=== PATIENT | female | born 1940 | race Caucasian/White ===

== ENCOUNTER → 2018-02-05 10:41 | Outpatient (CLI) | payer MEDICARE, BC, SELFPAY ==
--- NOTE | 2018-02-05 10:45 | MM_ITS ---
MM Dig screening mamm BI w/CAD CAD Screening COMPARISON: Digital mammograms with CAD 01/24/2017 and 01/24/2016 INDICATION: There is no personal or family history of breast cancer TECHNIQUE: Standard CC and MLO images were obtained. R2 CAD reviewed. FINDINGS: The breasts are closed primarily of fat with minimal scattered fiber glandular densities in each breast. There is a stable tiny nodular density upper outer quadrant right breast and there is a mole marker left breast. There is no suspicious lesion and there are no suspicious microcalcifications. Couple benign-appearing calcifications in each breast. IMPRESSION: Fatty type breast parenchyma with no suspicious lesion seen BI-RADS Category: 2 Benign Finding(s) RECOMMENDED FOLLOW-UP: 1YR - 1 YEAR FOLLOW-UP (A letter has been sent to the patient regarding results of the study.)
== END ==
PROVIDERS: PCP Family Medicine; Visit Provider Family Medicine
DX: Z12.31 Encounter for screening mammogram for malignant neoplasm of breast (principal)
CPT/HCPCS: 77067

== ENCOUNTER → 2019-02-12 08:45 | Outpatient (CLI) | payer MEDICARE, BC, SELFPAY ==
--- NOTE | 2019-02-12 08:49 | MM_ITS ---
PROCEDURE: MM DIG SCREENING MAMM BI W/CAD CLINICAL INDICATION: SCREENING No personal or family history of breast cancer COMPARISON: [facility] DIG MAMM-SCREEN HORTENCIA from 01/24/2016 [facility] DIG MAMM-SCREEN HORTENCIA W/CAD from 01/24/2017 [facility] MM Dig screening mamm BI w/CAD from 02/05/2018 TECHNIQUE: Standard CC and MLO images were obtained. R2 CAD reviewed. FINDINGS: Scattered fibroglandular densities are seen throughout both breast and the findings of bilateral and symmetrical. Again noted is a stable asymmetric density upper outer quadrant right breast likely an intramammary node. There are couple of benign-appearing microcalcifications right breast. There is a mole marker left breast there is no new or suspicious lesion in either breast and no suspicious microcalcifications. IMPRESSION: Fibrofatty parenchyma with no suspicious lesions seen BI-RAD Category: 2 Benign Finding(s) FOLLOW-UP: 1YR 1 Year Follow-up (A letter has been sent to the patient regarding results of the study.) Dictated by: Dr. Anand Aguayo MD 02/16/2019 12:[address] Anand Aguayo MD in [place] 02/16/2019 12:27
== END ==
PROVIDERS: PCP Family Medicine; Visit Provider Family Medicine
DX: Z12.31 Encounter for screening mammogram for malignant neoplasm of breast (principal)
CPT/HCPCS: 77067

== ENCOUNTER → 2019-07-30 12:49 | Outpatient (CLI) | payer MEDICARE, BC, SELFPAY ==
--- NOTE | 2019-07-30 12:54 | XR_ITS ---
PROCEDURE: XR DEXA AXIAL SKELETON CLINICAL HISTORY: POST MENOPAUSAL COMPARISON: CR BONE3 BONE DENSITOMETRY(HIP:LT SPINE from 12/19/2015 FINDINGS: The right hip BMD is 0.651 with a T-score of -2.4. The left hip BMD is 0.605 with a T-score of -2.8. The lumbar spine BMD is 0.893 with a T-score of -1.4. Previously the lowest density was in the left femur with a T-score of -2.6. IMPRESSION: This patient is considered osteoporotic according to the World Health Organization criteria. Fracture risk is high. Treatment is advised. Based on these results a follow-up exam is recommended in 1 year. Dictated by: Merrick Kruse MD 11/25/2019 08:50 Merrick Kruse MD in [facility] 11/25/2019 08:50
== END ==
PROVIDERS: PCP Family Medicine; Visit Provider Family Medicine
DX: Z78.0 Asymptomatic menopausal state (principal)
CPT/HCPCS: 77080

== ENCOUNTER 2019-11-22 11:38 | Emergency (ER) | payer MEDICARE, BC, SELFPAY ==
[2019-11-22 12:35] VITALS: BP 184/67; PULSE 69; RESP 14; TEMP 36.6; O2SAT 92; BMI 32.9
[2019-11-22 12:36] VITALS: BP 175/83; PULSE 83; RESP 17; TEMP 36.7; O2SAT 98; BMI 32.9
--- NOTE | 2019-11-22 12:39 | CT_ITS ---
PROCEDURE: CT FACIAL BONES WO CON CLINICAL HISTORY: FALL Posttraumatic pain COMPARISON: No exams were available for comparison TECHNIQUE: Axial images obtained with sagittal and coronal reformats. All CT scans at the facility use one or more dose reduction, viz: automated exposure control, ma/kV adjustment per patient size (including targeted exams where dose is matched to indication, i.e. head), or iterative reconstruction technique. FINDINGS: There is left frontal scalp soft tissue swelling along with periorbital soft tissue swelling on the left. Soft tissue swelling is present in the supra and infraorbital region as well. No acute fracture or dislocation is evident. No sinus air-fluid level. No postseptal soft tissue swelling or collections. There is mild leftward nasal septal deviation. There is an impacted maxillary 2 along the anterior aspect of the maxillary ridge on the left. This may represent impacted canine or bicuspid. IMPRESSION: 1. No acute fracture. 2. Left frontal scalp and left-sided periorbital hematoma. Unremarkable appearing left orbit. 3. Impacted left anterior maxillary tooth possibly canine or bicuspid Dictated by: Merrick Kruse MD 11/22/2019 14:11 Merrick Kruse MD in [facility] 11/22/2019 14:11
--- NOTE | 2019-11-22 12:39 | XR_ITS ---
PROCEDURE: XR CHEST AP CLINICAL HISTORY: FALL Posttraumatic pain COMPARISON: No exams were available for comparison FINDINGS: The cardiomediastinal silhouette and pulmonary vascularity are within normal limits. Linear density is present in the left lung base consistent with atelectasis . There are no previous exams available for comparison. The remaining lungs are clear. There may be an old left humeral neck fracture. No acute bony abnormalities. IMPRESSION: Lower lobe atelectatic changes Dictated by: Merrick Kruse MD 11/22/2019 14:31 Merrick Kruse MD in [facility] 11/22/2019 14:31
--- NOTE | 2019-11-22 12:39 | XR_ITS ---
PROCEDURE: XR WRIST RT MIN 3V CLINICAL INDICATION: FALL Posttraumatic pain COMPARISON: CR XR HAND RT 2V from 11/22/2019 FINDINGS: On the oblique view there is a vague lucency along the lower aspect of the triquetrum possibly due to nondisplaced fracture. Please correlate as the patient's area of pain and tenderness. No other significant anomalies are evident. Mild osteoarthritic changes are present at the 1st metacarpophalangeal joint. Other findings:None. IMPRESSION: Questionable non nondisplaced fracture along the lower aspect of the triquetrum otherwise negative Dictated by: Merrick Kruse MD 11/22/2019 14:36 Merrick Kruse MD in [facility] 11/22/2019 14:36
--- NOTE | 2019-11-22 12:39 | XR_ITS ---
PROCEDURE: XR PELVIS 1-2V CLINICAL INDICATION: FALL Posttraumatic pain COMPARISON: No exams were available for comparison TECHNIQUE: XR Pelvis AP View FINDINGS: No fracture or dislocation is evident. No significant degenerative change. No lytic or blastic change. IMPRESSION: No acute findings. Dictated by: Merrick Kruse MD 11/22/2019 14:33 Merrick Kruse MD in [facility] 11/22/2019 14:33
--- NOTE | 2019-11-22 12:39 | CT_ITS ---
PROCEDURE: CT CERVICAL SPINE WO CON CLINICAL INDICATION: FALL Neck injury with pain, contusion/abrasion or hematoma, cervical sprain/strain the COMPARISON: No exams were available for comparison TECHNIQUE: Axial images obtained with sagittal and coronal reformats. All CT scans at the facility use one or more dose reduction, viz: automated exposure control, ma/kV adjustment per patient size (including targeted exams where dose is matched to indication, i.e. head), or iterative reconstruction technique. Axial spiral CT scanning performed of the cervical spine beginning at the base of the skull and continuing to the upper T-spine. 3-D multiplanar reconstruction with 3-D manipulation of volumetric data set in image rendering was completed by the radiologist and/or technologist with the supervision of the radiologist on independent workstation. FINDINGS: No fracture or dislocation. There is mild periarticular calcification at the C1 CT junction at the atlantoaxial region. C2-C3: Mild right-sided foraminal narrowing from facet hypertrophic change. C3-C4: There is 3 mm anterolisthesis of C3 with mild degenerative disc disease at that level. C4-C5: 2-3 mm anterolisthesis of C4 with mild degenerative disc disease and mild left-sided foraminal narrowing. C5-C6: Degenerative disc disease with endplate spurring with canal stenosis of 9 mm with bilateral lateral recess narrowing and left-sided foraminal narrowing. C6-C7: Mild degenerative disc disease with small left paracentral disc osteophyte complex. There is 3 mm anterolisthesis of and on T2. Lung apices are clear. There is a 1.8 cm hypodense nodule of the left lobe of the thyroid gland IMPRESSION: 1. No acute fracture. 2. Multi cervical spondylosis as detailed above with canal stenosis and foraminal narrowing. Please see above for detailed description at each level. 3. 1.8 cm left thyroid nodule which may be better evaluated with nonemergent ultrasound. Dictated by: Merrick Kruse MD 11/22/2019 14:06 Merrick Kruse MD in [facility] 11/22/2019 14:06
--- NOTE | 2019-11-22 12:39 | CT_ITS ---
PROCEDURE: CT HEAD/BRAIN WO CON CLINICAL INDICATION: FALL Head injury with headache/pain, contusion, abrasion or hematoma COMPARISON: No exams were available for comparison TECHNIQUE: Axial images obtained. All CT scans at the facility use one or more dose reduction, viz: automated exposure control, ma/kV adjustment per patient size (including targeted exams where dose is matched to indication, i.e. head), or iterative reconstruction technique. FINDINGS: No midline shift, mass effect, intracranial hemorrhage, hydrocephalus, or extra-axial fluid collection is evident. There is soft tissue swelling in the left frontal region of the scalp. There are involutional changes of age. The calvarium has an unremarkable appearance. No mastoid effusion. No sinus air-fluid level. IMPRESSION: 1. No acute intracranial findings. 2. Left frontal scalp hematoma. Dictated by: Merrick Kruse MD 11/22/2019 14:02 Merrick Kruse MD in [facility] 11/22/2019 14:02
--- NOTE | 2019-11-22 12:51 | HMH.EDFALL ---
ED Disposition Clinical Impression: Closed head injury Qualifiers: Encounter type: initial encounter Qualified Code(s): S09.90XA - Unspecified injury of head, initial encounter Facial trauma Qualifiers: Encounter type: initial encounter Qualified Code(s): S09.93XA - Unspecified injury of face, initial encounter Fracture of triquetral bone of right wrist Qualifiers: Encounter type: initial encounter Fracture type: closed Fracture alignment: nondisplaced Qualified Code(s): S62.114A - Nondisplaced fracture of triquetrum [cuneiform] bone, right wrist, initial encounter for closed fracture Disposition: Home, Self-Care Condition on Discharge: Good Instructions: DI for Wrist Sprain Referrals: Nathan Benavidez MD [Primary Care Provider] - Palu Sheridan MD [Staff Physician] - - Critical Care Critical Care Time: No Attestation: On 11/22/19, the high probability of a clinically significant, sudden or life threatening deterioration of the following system(s) required my full and direct attention, intervention and personal management. The time I documented below is in addition to time spent performing reported procedures but includes the following listed in this critical care notation. Medical Decision Making - Medical Records Medical records reviewed: Yes: I reviewed the patient's medical records. - Manuel Inquiry Pt receiving controlled substance: No Vital Signs: 11/22/19 12:35 11/22/19 12:36 Temperature 97.9 F 98.1 F Temperature Source Oral Oral Pulse Rate [Right Brachial] 69 Pulse Rate [Right] 83 Respiratory Rate 14 17 Blood Pressure [Right Arm] 184/67 H 175/83 H Blood Pressure Mean [Right Arm] 106 113 Blood Pressure Source [Right Arm] Automatic Cuff Blood Pressure Position [Right Arm] Sitting 02 Sat by Pulse Oximetry 92 L 98 Oxygen Delivery Method Room Air Orders (Tests/Meds): ED MEDICATIONS Discontinued Medications Generic Name Dose Route Start Last Admin Trade Name Freq PRN Reason Stop Dose Admin Acetaminophen 1,000 mg 11/22/19 12:44 11/22/19 12:52 Acetaminophen 500mg Tab PO 11/22/19 12:45 1,000 mg ONCE ONE Administration ORDERS Category Date Time Status Hand XR right 2 views [XR hand RT 2V] Stat Exams 11/22/19 12:44 Taken Wrist XR right minimum 3 views [XR wrist RT min 3V] Exams 11/22/19 12:39 Taken Stat XR pelvis 1-2V Stat Exams 11/22/19 12:39 Taken - Radiology Data #1 Image(s): Other (CT c spine) IMPRESSION: 1. No acute fracture. 2. Multi cervical spondylosis as detailed above with canal stenosis and foraminal narrowing. Please see above for detailed description at each level. 3. 1.8 cm left thyroid nodule which may be better evaluated with nonemergent ultrasound. #2 Image(s): Other (CT face) Image Reviewed: Yes I reviewed the patient's radiology results, Yes I have reviewed radiologist's interpretation IMPRESSION: 1. No acute fracture. 2. Left frontal scalp and left-sided periorbital hematoma. Unremarkable appearing left orbit. 3. Impacted left anterior maxillary tooth possibly canine or bicuspid #3 Image(s): Wrist, Hand, Pelvis Image Reviewed: Yes I reviewed the patient's radiology results, Yes I reviewed the patient's radiology image, Yes I have reviewed radiologist's interpretation IMPRESSION: Questionable non nondisplaced fracture along the lower aspect of the triquetrum otherwise negative - CT Data CT Scan: Head Time Received: 14:[address] Reviewed: Yes: I have reviewed the patient's CT results, I have viewed the radiologist's interpretation Findings Narrative: IMPRESSION: 1. No acute intracranial findings. 2. Left frontal scalp hematoma. - Reevaluation(s) Time: 14:36 Reevaluation #1: On reevaluation, patient is feeling much better. There is no evidence of acute intracranial abnormality. Significant hematomas in the face but no fractures. Patient was given a cammie
--- NOTE | 2019-11-22 13:38 | PC.NURSE ---
Pt with rad v/s delayed.
--- NOTE | 2019-11-22 13:54 | PC.NURSE ---
Pt returned from rad.
[2019-11-22 15:02] VITALS: BP 147/87; PULSE 82; RESP 18; TEMP 36.7; O2SAT 99
== END 2019-11-22 15:03 | disposition home or self-care (01) ==
LOC: UTC 11:43 → ER 12:34
PROVIDERS: Emergency Provider Emergency Medicine; PCP Family Medicine
DX: S62.114A Nondisplaced fracture of triquetrum [cuneiform] bone, right wrist, initial encounter for closed fracture (principal); S09.90XA Unspecified injury of head, initial encounter; S09.93XA Unspecified injury of face, initial encounter; W10.9XXA Fall (on) (from) unspecified stairs and steps, initial encounter; Y92.019 Unspecified place in single-family (private) house as the place of occurrence of the external cause; K21.9 Gastro-esophageal reflux disease without esophagitis; I10 Essential (primary) hypertension; E78.5 Hyperlipidemia, unspecified; E03.9 Hypothyroidism, unspecified; Z87.891 Personal history of nicotine dependence; Z79.899 Other long term (current) drug therapy
CPT/HCPCS: 29125; 70450; 70486; 71045; 72125; 72170; 73110; 73120; 99284

== ENCOUNTER → 2019-12-27 13:53 | Outpatient (CLI) | payer MEDICARE, BC, SELFPAY ==
--- NOTE | 2019-12-27 13:58 | XR_ITS ---
PROCEDURE: XR WRIST RT MIN 3V CLINICAL INDICATION: wrist injury FU COMPARISON: CR XR WRIST RT MIN 3V from 11/22/2019 FINDINGS: There remains an oblique lucency at the base and dorsal aspect of the triquetrum suggesting a nondisplaced fracture. Lucency is also noted at the navicular on the oblique view and may be due to artifact from a ridge within the navicular. Please correlate with patient's area of pain and tenderness. IMPRESSION: Overall no significant change possible triquetrum fracture Dictated by: Merrick Kruse MD 12/27/2019 14:45 Merrick Kruse MD in [place] 12/27/2019 14:45
== END ==
PROVIDERS: PCP Family Medicine; Visit Provider Orthopaedic Surgery
DX: S62.111A Displaced fracture of triquetrum [cuneiform] bone, right wrist, initial encounter for closed fracture (principal)
CPT/HCPCS: 73110

== ENCOUNTER → 2020-02-21 13:13 | Outpatient (CLI) | payer MEDICARE, BC, SELFPAY ==
--- NOTE | 2020-02-21 13:15 | MM_ITS ---
PROCEDURE: MM DIG SCREENING MAMM BI W/CAD Referring Doctor: Nathan Benavidez Patient Age:79Y CLINICAL INDICATION: SCREENING 79-year-old no hormones no new complaints Family history noncontributory COMPARISON: [facility] DIG MAMM-SCREEN HORTENCIA from 09/06/2013 MG [facility] DIG MAMM-SCREEN HORTENCIA from 09/14/2014 [facility] DIG MAMM-SCREEN HORTENCIA from 01/24/2016 MG [facility] DIG MAMM-SCREEN HORTENCIA W/CAD from 01/24/2017 [facility] MM Dig screening mamm BI w/CAD from 02/05/2018 MG MM DIG SCREENING MAMM BI W/CAD from 02/12/2019 TECHNIQUE: Standard CC and MLO images were obtained. R2 CAD reviewed. Bilateral digital breast tomosynthesis included. Additional right CC view nipple profile FINDINGS: minimal residual fibroglandular elements. Low-density breast with generalized fatty replacement, No new dominant or suspicious mass. No suspicious calcifications Right breast-no new findings of concern Stable small intramammary node toward axillary tail right breast Left breast-no new areas of significant concern. Longstanding stable small areas are fibroglandular asymmetry Bilateral follow-up 1 year IMPRESSION: Stable bilateral mammogram with no new areas of significant concern Bilateral follow-up 1 year again recommended BI-RAD Category: 2 Benign Finding(s) FOLLOW-UP: 1YR 1 Year Follow-up (A letter has been sent to the patient regarding results of the study.) This Dictated by: Héctor Muñoz MD 02/22/2020 23:13 Héctor Muñoz MD in [place] 02/22/2020 23:13
== END ==
PROVIDERS: PCP Family Medicine; Visit Provider Family Medicine
DX: Z12.31 Encounter for screening mammogram for malignant neoplasm of breast (principal)
CPT/HCPCS: 77063; 77067

== ENCOUNTER → 2020-03-20 11:24 | Outpatient (CLI) | payer MEDICARE, BC, SELFPAY ==
[2020-03-20 13:14] LABS: Coronavirus 19 IgG Antibody Negative (Negative); Coronavirus 19 IgM Antibody Negative (Negative)
== END ==
PROVIDERS: Visit Provider Surgery
DX: Z01.812 Encounter for preprocedural laboratory examination (principal); Z20.822 Contact with and (suspected) exposure to COVID-19; Z13.810 Encounter for screening for upper gastrointestinal disorder; R13.10 Dysphagia, unspecified
CPT/HCPCS: 86328

== ENCOUNTER 2020-03-21 07:50 | Day surgery (SDC) | payer MEDICARE, BC, SELFPAY ==
[2020-03-16 11:09] VITALS: BMI 34.7
[2020-03-21 08:12] VITALS: BP 173/72; PULSE 76; RESP 18; TEMP 36.6; O2SAT 94
[2020-03-21 08:38] VITALS: O2SAT 95
[2020-03-21 08:50] VITALS: BP 125/57; PULSE 72; RESP 12; TEMP 36.2; O2SAT 94
--- NOTE | 2020-03-21 08:52 | HMH.SCOPE ---
- Procedure: Date: 03/21/20 Patient Date of :: 1940 Procedure Performed:: Esophagogastroduodenoscopy with biopsies Indications:: Patient is a 79-year-old female whom I had seen in the past for colonoscopy. She is somewhat of a poor historian. I did perform colonoscopy on her in September 2017 and she had no adenomatous polyps. Recommend 5-year follow-up due to previous history of adenomatous polyps. At this time she is apparently referred for upper endoscopy. She states that she has had very severe symptoms consistent with heartburn. She does take Pepcid [id number]. This is helped with some abdominal bloating but she still does have significant heartburn symptoms. She describes associated abdominal swelling and bloating with excessive gas. Patient has her gallbladder. Performing Provider:: Edwin Mcgill MD Referring Provider:: Lemuel Benavidez MD Sedation:: MAC sedation Procedure:: Patient was taken to endoscopy procedure room. She was positioned in a lateral decubitus position. Adequate intravenous sedation was achieved. Olympus endoscope was inserted via the oropharynx. Is advanced through the esophagus. Gastroesophageal junction was encountered at approximately 35 cm from the incisors. There were findings in the distal esophagus possibly consistent with Garnica's esophagus. Stomach was cannulated and insufflated. Retroflexion revealed a small to moderate hiatal hernia. In the antrum there were several tiny ulcerations, larger than erosions. There were approximately 4 antral small ulcers. These had stable well-formed exudate. Gastric antral mucosal biopsies obtained for CLOtest for H. pylori. Pylorus was traversed. Duodenum appeared unremarkable. Gastric biopsies were obtained adjacent to the ulcers. Endoscope was withdrawn into the distal esophagus. Several biopsies were obtained to assess for possible Garnica's esophagitis. Stomach was desufflated and the endoscope was withdrawn. Findings:: Small to moderate sliding hiatal hernia Possible Garnica's esophagus in the distal esophagus Four tiny antral ulcerations Recommendations:: Follow-up on histopathology. Treat H. pylori if positive. Likely benefit from proton pump inhibitors and possibly Cytotec. Consider repeat endoscopy in several weeks to assess for healing pending the patient's symptomatology. Complications:: None Estimated blood obtained (mL): 2
--- NOTE | 2020-03-21 08:53 | HMH.ANESCL ---
[facility] Anesthesia Checklist - Patient Identification Patient Identification: Arm Band - Structural Data Admitted From: Home Planned Operative Procedure/s: egd Consent for Planned Operative Procedure(s) Verified: Yes Verified Documents: Surgical Consent - Chart Verification Results Verified: None - Additional verifications Anesthesia Reactions: No - Anesthesia Plan Anesthesia Risk discussed: Yes Anesthesia Plan: Verified ASA Class: II Anesthesia Type: General [facility] History I have reviewed the patient's past medical history: Yes Medical History: Reports:: Gastroesophageal Reflux Disease(GERD), Hyperlipidemia, Hypertension Denies:: Cancer, Diabetes Mellitus Type 1, Diabetes Mellitus Type 2, Internal Pacemaker, Lung Disease, MRSA, Seizures *Have you ever received a pneumonia vaccine?: Yes *Have you received a flu vaccine this season?: Yes Other Medical History: Reports: Hypothyroidism, Other Comment:: none Anesthesia experience/problems:: none Other Surgeries: Yes: Colonoscopy, Hysterectomy-Total. No: Pacemaker Amputation: No Fractures: No - *Social History Last grade of school completed: 11th or 12th Smoking Status: Former smoker Alcohol Intake: never Substance Use Type: denies use *Occupational Status:: unemployed, retired Housing: house Household Members: spouse *Travel in the last 8 weeks: None Family Hx:: Diabetes, Hypertension
[2020-03-21 09:00] VITALS: BP 113/68; PULSE 69; RESP 16; O2SAT 94
[2020-03-21 09:10] VITALS: BP 124/65; PULSE 64; RESP 16; O2SAT 93
[2020-03-21 09:20] VITALS: BP 118/73; PULSE 73; RESP 16; TEMP 36.2; O2SAT 94
== END 2020-03-21 09:24 | disposition home or self-care (01) ==
LOC: OUTP 07:54
PROVIDERS: PCP Family Medicine; Visit Provider Surgery
PROC: 0DJ08ZZ Inspection of Upper Intestinal Tract, Via Natural or Artificial Opening Endoscopic (ICD-10-PCS; CPT 43235; principal; 2020-03-21 09:00)
DX: K44.9 Diaphragmatic hernia without obstruction or gangrene (principal); K25.9 Gastric ulcer, unspecified as acute or chronic, without hemorrhage or perforation; I10 Essential (primary) hypertension; E78.5 Hyperlipidemia, unspecified; E03.9 Hypothyroidism, unspecified; Z79.899 Other long term (current) drug therapy; Z87.891 Personal history of nicotine dependence
CPT/HCPCS: 43235; 87339; 88305

== ENCOUNTER → 2020-08-01 08:59 | Outpatient (CLI) | payer MEDICARE, BC, SELFPAY ==
--- NOTE | 2020-08-01 09:02 | XR_ITS ---
PROCEDURE: XR DEXA AXIAL SKELETON CLINICAL HISTORY: OSTEOPOROSIS COMPARISON: CR BONE3 BONE DENSITOMETRY(HIP:LT SPINE from 12/19/2015 FINDINGS: The right hip BMD is 0.506 with a T-score of -3.1. The left hip BMD is 0.576 with a T-score of -3.0. The lumbar spine BMD is 1.007 with a T-score of -0.4. IMPRESSION: This patient is considered osteoporotic according to the World Health Organization criteria. Fracture risk is high. Treatment is advised. Based on these results a follow-up exam is recommended in 1 year. Dictated by: Thien Kenny MD 08/04/2020 09:55 Thien Kenny MD in [place] 08/04/2020 09:55
== END ==
PROVIDERS: PCP Family Medicine; Visit Provider Family Medicine
DX: M81.0 Age-related osteoporosis without current pathological fracture (principal)
CPT/HCPCS: 77080

== ENCOUNTER → 2020-09-19 11:25 | Outpatient (CLI) | payer MEDICARE, BC, SELFPAY ==
--- NOTE | 2020-09-19 12:02 | XR_ITS ---
PROCEDURE: XR KNEE LT 3V CLINICAL INDICATION: KNEE PAIN COMPARISON: No exams were available for comparison FINDINGS: There are mild tricompartmental osteoarthritic changes. No acute fracture or dislocation. No lytic or blastic change Other findings:None. IMPRESSION: Mild osteoarthritis Dictated by: Merrick Kruse MD 09/19/2020 13:06 Merrick Kruse MD in [place] 09/19/2020 13:06
== END ==
PROVIDERS: PCP Family Medicine; Visit Provider Family Medicine
DX: M25.562 Pain in left knee (principal)
CPT/HCPCS: 73562

== ENCOUNTER → 2020-10-09 11:11 | Outpatient (CLI) | payer MEDICARE, BC, SELFPAY | PROVIDERS: Visit Provider Surgery | DX: Z20.822 Contact with and (suspected) exposure to COVID-19 (principal); Z01.812 Encounter for preprocedural laboratory examination; Z13.810 Encounter for screening for upper gastrointestinal disorder | CPT/HCPCS: U0003 ==

== ENCOUNTER 2020-10-11 06:55 | Day surgery (SDC) | payer MEDICARE, BC, SELFPAY ==
[2020-10-06 10:09] VITALS: BMI 36.6
[2020-10-11 07:14] VITALS: BP 178/78; PULSE 90; RESP 18; TEMP 36.6; O2SAT 95
--- NOTE | 2020-10-11 07:49 | HMH.ANESCL ---
[facility] Anesthesia Checklist - Patient Identification Patient Identification: Arm Band, Verbal (Name & ) - Structural Data Admitted From: Home Planned Operative Procedure/s: egd Consent for Planned Operative Procedure(s) Verified: Yes Verified Documents: History and Physical - NPO Status Verified Time NPO: 00:00 - Chart Verification Results Verified: CBC, BMP - Additional verifications Patient : No Anesthesia Reactions: No Hx Blood Transfusions: No Blood Transfusion Reaction: No Cephalosporin Allergy: No Previous Colonoscopy: Yes - Cardiovascular Assessment Heart Sounds: S1 & S2 Pulse Strength: Baseline Pulse Rhythm: Regular Peripheral Edema: No - Airway Assessment C-Spine Mobility Assessed: Yes TMJ Mobility Assessed: Yes Dentition: Dentures-good fit - Neurological Assessment Level of Consciousness: Awake, Alert, Appropriate Hx Seizures: No Numbness or tingling in extremities: No - Anesthesia Plan Anesthesia Risk discussed: Yes Anesthesia Plan: Verified ASA Class: II Anesthesia Type: MAC [facility] History I have reviewed the patient's past medical history: Yes Medical History: Reports:: Gastroesophageal Reflux Disease(GERD), Hyperlipidemia, Hypertension Denies:: Cancer, Diabetes Mellitus Type 1, Diabetes Mellitus Type 2, Internal Pacemaker, Lung Disease, MRSA, Seizures *Have you ever received a pneumonia vaccine?: Yes *Have you received a flu vaccine this season?: Yes Other Medical History: Reports: Hypothyroidism, Other Anesthesia experience/problems:: none Laterality Cases: Bilateral: Cataract Other Surgeries: Yes: Colonoscopy, EGD, Hysterectomy-Total. No: Pacemaker Amputation: No Fractures: No - *Social History Last grade of school completed: High school graduate Smoking Status: Never smoker Alcohol Intake: never Substance Use Type: denies use *Occupational Status:: retired Housing: house Household Members: spouse *Travel in the last 8 weeks: None Family Hx:: Diabetes
[2020-10-11 07:50] VITALS: O2SAT 96
--- NOTE | 2020-10-11 08:04 | HMH.SCOPE ---
- Procedure: Date: 10/11/20 Patient Date of :: 1940 Procedure Performed:: Esophagogastroduodenoscopy with biopsies Indications:: Patient presents for follow up upper endoscopy. Her primary care provider is Lemuel Benavidez MD. She had significant symptoms of reflux. 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 At that time the patient stated that she normally takes about 800 mg ibuprofen daily. I had started her on lansoprazole. She has had dramatic improvement and resolution in her symptoms. I recommended refrain from NSAIDs if possible. 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 She states the medicine is doing quite well. She does however say that occasionally she has hunger pains and burning about an hour after eating. Performing Provider:: Edwin Mcgill MD Referring Provider:: Lemuel Benavidez MD Sedation:: MAC sedation Procedure:: Patient was positioned in lateral decubitus position. Adequate intravenous sedation was achieved with anesthesia titration of propofol. Olympus endoscope was inserted via the oropharynx. Esophagus was cannulated. Overall esophagus appeared normal. The distal esophagus there was possible findings consistent with Garnica's esophagus. Stomach was cannulated and insufflated. Retroflexion revealed small to moderate sliding hiatal hernia. There was some mild to moderate nonerosive antral gastritis. Biopsies were obtained. Pylorus was traversed. Duodenum appeared normal. Endoscope was withdrawn to the distal esophagus and several biopsies were obtained at the gastroesophageal junction to assess for Garnica's esophagus. Endoscope was withdrawn. Findings:: Small to moderate hiatal hernia Recommendations:: Continue proton pump inhibitors. Repeat endoscopy pending findings on biopsy Complications:: None immediately apparent Estimated blood obtained (mL): 2
[2020-10-11 08:06] VITALS: BP 147/71; PULSE 80; RESP 16; TEMP 36.7; O2SAT 94
[2020-10-11 08:16] VITALS: BP 132/71; PULSE 71; RESP 16; O2SAT 95
[2020-10-11 08:26] VITALS: BP 125/58; PULSE 72; RESP 16; O2SAT 95
[2020-10-11 08:36] VITALS: BP 158/71; PULSE 70; RESP 16; O2SAT 95
== END 2020-10-11 08:36 | disposition home or self-care (01) ==
LOC: OUTP 06:57
PROVIDERS: PCP Family Medicine; Visit Provider Surgery
PROC: 0DJ08ZZ Inspection of Upper Intestinal Tract, Via Natural or Artificial Opening Endoscopic (ICD-10-PCS; CPT 43235; principal; 2020-10-11 08:00)
DX: K44.9 Diaphragmatic hernia without obstruction or gangrene (principal); K29.60 Other gastritis without bleeding; Z87.19 Personal history of other diseases of the digestive system; K21.9 Gastro-esophageal reflux disease without esophagitis; E78.5 Hyperlipidemia, unspecified; I10 Essential (primary) hypertension; E03.9 Hypothyroidism, unspecified; Z83.3 Family history of diabetes mellitus; Z79.899 Other long term (current) drug therapy
CPT/HCPCS: 43239; 88305; 88342

== ENCOUNTER → 2020-12-06 10:40 | Outpatient (CLI) | payer MEDICARE, BC, SELFPAY ==
--- NOTE | 2020-12-06 10:42 | US_ITS ---
PROCEDURE INFORMATION: Exam: US Right Breast, Complete Exam date and time: 12/06/2020 10:42 AM Age: 80 years old Clinical indication: Diffuse right breast pain TECHNIQUE: Imaging protocol: Complete ultrasound of all four quadrants of the Right breast and the retroareolar regions, including ultrasound of the axilla when performed. COMPARISON: MG MM DIG SCREENING MAMM BI W/CAD 02/21/2020 1:34 PM FINDINGS: Breast: No suspicious solid or cystic mass is present. No benign-appearing solid or cystic mass is present. No architectural distortion or shadowing is present. No axillary adenopathy is present. IMPRESSION: No sonographic evidence of malignancy. Annual mammographic screening is recommended unless otherwise clinically indicated. If focal symptoms were to develope (palpable lump or focal pain), diagnostic mammogram with spot compression views in the region of palpable concern should be considered ASSESSMENT: BI-RADS category 1: Negative
== END ==
PROVIDERS: PCP Family Medicine; Visit Provider Nurse Practitioner Family
DX: N64.4 Mastodynia (principal)
CPT/HCPCS: 76641

== ENCOUNTER 2020-12-22 11:50 | Outpatient (RCR) | payer MEDICARE, BC, SELFPAY | END 2020-12-22 12:30 | disposition home or self-care (01) | LOC: PT 11:50 | PROVIDERS: Visit Provider Orthopaedic Surgery | DX: M17.12 Unilateral primary osteoarthritis, left knee (principal) | CPT/HCPCS: 97760 ==

== ENCOUNTER → 2021-02-22 10:08 | Outpatient (CLI) | payer MEDICARE, BC, SELFPAY ==
--- NOTE | 2021-02-22 10:11 | MM_ITS ---
PROCEDURE INFORMATION: Exam: MG Bilateral Screening 3D Mammography Exam date and time: 02/22/2021 10:11 AM Age: 80 years old Clinical indication: Encounter for screening mammogram for malignant neoplasm of breast TECHNIQUE: Imaging protocol: Bilateral screening tomosynthesis and 2D mammography including computer-aided detection (CAD) when performed. COMPARISON: 1. MG MM DIG SCREENING MAMM BI W/CAD 02/21/2020 1:34 PM 2. MG MM DIG SCREENING MAMM BI W/CAD 02/12/2019 9:17 AM FINDINGS: MAMMOGRAPHY: Breast composition: The breast tissue is composed of scattered areas of fibroglandular density. Mass: None. Architectural distortion: None. Calcifications: No suspicious calcifications. Asymmetric density: None. Skin thickening: None. Axillary adenopathy: None. IMPRESSION: No mammographic evidence of malignancy. Annual screening is recommended unless otherwise clinically indicated. ASSESSMENT: BI-RADS Category 1: Negative
== END ==
PROVIDERS: PCP Family Medicine; Visit Provider Family Medicine
DX: Z12.31 Encounter for screening mammogram for malignant neoplasm of breast (principal)
CPT/HCPCS: 77063; 77067

== ENCOUNTER → 2021-06-07 11:04 | Outpatient (CLI) | payer MEDICARE, BC, SELFPAY ==
--- NOTE | 2021-06-07 11:10 | XR_ITS ---
FINAL REPORT CLINICAL HISTORY: RIGHT SHOULDER PAIN FINDINGS: RIGHT SHOULDER 3 views were obtained. There is no acute fracture or dislocation. There are mild degenerative changes seen in the acromioclavicular and glenohumeral joints. There is no soft tissue abnormality. IMPRESSION: Degenerative changes with no acute bony abnormality. Reviewed, Interpreted and Dictated by Edwin Rincon III, MD Transcribed by Lisha Huber Authenticated by Edwin Rincon III, MD on 06/07/2021 01:01:05 PM [facility]
--- NOTE | 2021-06-07 11:10 | XR_ITS ---
FINAL REPORT CLINICAL HISTORY: LEFT SHOULDER PAIN FINDINGS: LEFT SHOULDER 3 views were obtained. There is no acute fracture or dislocation. A chronic proximal left humeral fracture is noted. There are mild degenerative changes seen in the acromioclavicular and glenohumeral joints. There is no soft tissue abnormality. IMPRESSION: Degenerative changes with no acute bony abnormality. Reviewed, Interpreted and Dictated by Edwin Rincon III, MD Transcribed by Lisha Huber Authenticated by Edwin Rincon III, MD on 06/07/2021 01:01:[address] [facility]
== END ==
PROVIDERS: PCP Family Medicine; Visit Provider Family Medicine
DX: M25.511 Pain in right shoulder (principal); M25.512 Pain in left shoulder
CPT/HCPCS: 73030

== ENCOUNTER → 2021-06-29 08:41 | Outpatient (CLI) | payer MEDICARE, BC, SELFPAY ==
--- NOTE | 2021-06-29 08:48 | XR_ITS ---
FINAL REPORT CLINICAL HISTORY: knee pain COMPARISON: 09/19/2020 FINDINGS: LEFT KNEE Three views of the left knee reveal no evidence of fracture or dislocation. The bony alignment is normal. There are mild degenerative changes. Meniscal calcifications are identified. There is no evidence of joint effusion. There is no acute soft tissue abnormality. IMPRESSION: Mild degenerative changes as above. Reviewed, Interpreted and Dictated by Edwin Rincon III, MD Transcribed by Charisse Dozier Authenticated by Edwin Rincon III, MD on 06/29/2021 02:51:01 PM [facility]
== END ==
PROVIDERS: PCP Family Medicine; Visit Provider Orthopaedic Surgery
DX: M25.562 Pain in left knee (principal)
CPT/HCPCS: 73562

== ENCOUNTER → 2022-03-01 10:26 | Outpatient (CLI) | payer MEDICARE, BC, SELFPAY ==
--- NOTE | 2022-03-01 10:35 | XR_ITS ---
FINAL REPORT CLINICAL HISTORY: knee pain COMPARISON: 06/29/2021 FINDINGS: Left knee Three views were obtained. There is no acute fracture or dislocation. Mild degenerative changes are present. There is a 10 mm presumed osteo chondroma in the medial proximal tibia. No soft tissue abnormality is identified. 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 Reviewed, Interpreted and Dictated by Edwin Rincon III, MD Transcribed by Lucita King Authenticated and [facility]
--- NOTE | 2022-03-01 10:35 | XR_ITS ---
FINAL REPORT CLINICAL HISTORY: knee pain FINDINGS: Right knee Three views were obtained. There is no acute fracture or dislocation. There are mild degenerative changes. There is a presumed enchondroma in the distal femur measuring 15 mm. No soft tissue abnormality is identified. 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 Reviewed, Interpreted and Dictated by Edwin Rincon III, MD Transcribed by Lucita King Authenticated and [facility]
== END ==
PROVIDERS: PCP Family Medicine; Visit Provider Orthopaedic Surgery
DX: M17.0 Bilateral primary osteoarthritis of knee (principal)
CPT/HCPCS: 73562

== ENCOUNTER → 2022-04-09 11:15 | Outpatient (CLI) | payer MEDICARE, BC, SELFPAY ==
--- NOTE | 2022-04-09 11:18 | MM_ITS ---
PROCEDURE INFORMATION: Exam: MG Bilateral Screening 3D Mammography Exam date and time: 04/09/2022 11:09 AM Age: 81 years old Clinical indication: Screening examination TECHNIQUE: Imaging protocol: Bilateral Screening tomosynthesis and 2D mammography including computer-aided detection (CAD) when performed. COMPARISON: 1. MG MM DIG SCREENING MAMM BI W/CAD 02/22/2021 10:15 AM 2. MG MM DIG SCREENING MAMM BI W/CAD 02/21/2020 1:34 PM FINDINGS: MAMMOGRAPHY: Breast composition: The breasts are almost entirely fatty. Mass: None. Architectural distortion: None. Calcifications: No suspicious calcifications. Asymmetric density: None. Skin thickening: None. Axillary adenopathy: None. IMPRESSION: No mammographic evidence of malignancy. Annual screening is recommended unless otherwise clinically indicated. ASSESSMENT: BI-RADS Category 1: Negative
== END ==
PROVIDERS: PCP Family Medicine; Visit Provider Family Medicine
DX: Z12.31 Encounter for screening mammogram for malignant neoplasm of breast (principal)
CPT/HCPCS: 77063; 77067

== ENCOUNTER 2022-05-14 11:00 | Outpatient (RCR) | payer MEDICARE, BC, SELFPAY ==
--- NOTE | 2022-01-01 14:56 | HMH.PTOPWND ---
Rehab Outpt Wound Evaluation Rehab OP Wound Evaluation Start: 01/01/22 13:50 Freq: Status: Active Protocol: Document 01/01/22 14:43 PHORNE (Rec: 01/01/22 14:56 PHORNE [id number]) E-signed By Noah Fisher, PT Subjective/History History History This is the initial PT eval for Mari Carmichael 81 yowf who presents with c/o B knee pain and B LE edema, L > R. She reports insidious onset of pain ~ 6-8 mos ago and worsening edema over the past 1-2 mos. She reports using a RW over the past 1-2 mos also. She had x-rays performed on the L knee which showed degenerative changes. She also has hx of HTN. Subjective Subjective Currently Pain in L knee is 7/ 10, at worst 10/10. She reports intermittent sharp pains with anxiety about her knee giving out. She has 2/4 TTP in B gaitor area. 3+ pitting edema noted to B lower leg from mid-calf distally. Palpable pedal pulses noted B. 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 Stemmer's sign Stemmer's Sign no Stage of Lymphedema Lymphedema stages Stage I (Pitting edema, reduces w/ elevation, no fibrosis) Skin Changes Dry Skin Yes Taut, Shiny Skin Yes Discoloration of Skin Yes Other Changes Yes Pain Scale Pain Scale (0-10) 7 Affected Extremities Areas Affected by Lymphedema/Edema Right Lower Extremity,Left Lower Extremity Manual Lymphatic Drainage Treatment Area MLD Treatment Area Right Lower Extremity,Left Lower Extremity Wound Problems/Impairments Impairments Problems/Impairmments Palpation Tenderness,Impaired Endurance,Impaired Transfers, Impaired Gait Pattern,Impaired Walking,Impaired Standing, Impaired Stair Climbing, Impaired Incline Stepping, Impaired Stepping on Uneven Surface,Impaired Recreational Activities,Incre
--- NOTE | 2022-02-12 11:10 | HMH.RHREAS ---
Rehab Reassessment Rehab OP Re-assessment Start: 02/12/22 11:04 Freq: Status: Active Protocol: Document 02/12/22 11:06 QUINTENBarbaraMARY (Rec: 02/12/22 11:10 PHORMARY [id number]) E-signed By Noah Fisher, PT Rehab Re-assessment Subjective Subjective Pt reports, I'm sleeping so much better than I was. Pain now 4/10. Objective Objective Notes Edema: B LE with 2+ pitting edema noted this date. Some spongy edema noted as well. TTP: B LE 1/4 in the gaitor area of lower legs. Pain: 4/10. Assessment Progress Assessment Progressing as Expected Assessment Notes Pt has shown significant improvements in all edema at athis time in B LE. Much less pain and tenderness noted resulting in significant functional improvements with mobility. Continuing to improve. Patient goals met ST,2,3,4 Goals Not Met LT,2,3,4,5,6,7,8 Revised Goals none Plan Plan Continue per initial POC. Frequency of Therapy 2 x/wk Duration of therapy 4 wks Time and Billing Re-Eval Time 14 Re-Eval Billing Units 1 PHYSICIAN CERTIFICATION: I certify the specified therapy services for Mari Carmichael are required, authorized, and reviewed every 30 days.
--- NOTE | 2022-03-12 11:53 | HMH.RHREAS ---
Rehab Reassessment Rehab OP Re-assessment Start: 02/12/22 11:04 Freq: Status: Active Protocol: Document 03/12/22 11:48 QUINTENBarbaraMARY (Rec: 03/12/22 11:53 PHOPAM [id number]) E-signed By Noah Fisher, PT Rehab Re-assessment Subjective Subjective Pt reports, I don't have to take any pain medicine anymore , I can control it with just tylenol. Objective Objective Notes TTP: B LE 1/4 in the gaitor area of lower legs. Pain: 10. Circumferential Measurements: R LE total 312.2 cm which is - 7.9 cm since initial eval. L LE total 309.2 cm which is -29 .9 cm since initial eval. Assessment Progress Assessment Progressing as Expected Assessment Notes Pt has shown significant improvements in pain, pitting edema, overall edema, and tenderness to palpation in B LE. She has also significantly improved her mobility, but has continued difficulty raising the L LE for steps and some ADLs. She is following her HEP well and without c/o. Patient goals met ST,2,3,4 Goals Not Met LT,2,3,4,5,6,7,8 Revised Goals none Plan Plan Continue per initial POC. Frequency of Therapy 2 x/wk Duration of therapy 4 wks Time and Billing Re-Eval Time 16 Re-Eval Billing Units 1 PHYSICIAN CERTIFICATION: I certify the specified therapy services for Mari Carmichael are required, authorized, and reviewed every 30 days.
--- NOTE | 2022-04-16 11:57 | HMH.RHREAS ---
Rehab Reassessment Rehab OP Re-assessment Start: 02/12/22 11:04 Freq: Status: Active Protocol: Document 04/16/22 11:47 QUINTENBarbaraMARY (Rec: 04/16/22 11:57 PHORMARY [id number]) E-signed By Noah Fisher, PT Rehab Re-assessment Subjective Subjective Pt continues to reports overall decrease in pain and edema. I feel a whole lot better. Objective Objective Notes TTP: B gaiter area 0/4 this date. Edema: 1+ pitting edema remains to B lower legs, L > R this date. Pain: 2/10 pain in the L knee this date. Assessment Progress Assessment Progressing as Expected Assessment Notes Pt continues to show significant improvement in overall L knee pain and L LE edema. She shows improved gait , without antalgic gait pattern at this time. Tolerating compression garments well at home, becoming more independent with HEP. Patient goals met ST,2,3,4 LT,2,4 Goals Not Met LT,5,6,7 Revised Goals none Plan Plan Continue per initial POC. Beginning to progress to full independence with HEP. Will drop to 1x wk for 3-4 wks for treatment. Frequency of Therapy 1 x/wk Duration of therapy 4 wks Time and Billing Re-Eval Time 14 Re-Eval Billing Units 1 PHYSICIAN CERTIFICATION: I certify the specified therapy services for Mari Carmichael are required, authorized, and reviewed every 30 days.
== END 2022-05-14 11:05 | disposition home or self-care (01) ==
LOC: PT 11:00
PROVIDERS: PCP Family Medicine; Visit Provider Orthopaedic Surgery
DX: M25.562 Pain in left knee (principal); M25.462 Effusion, left knee
CPT/HCPCS: 97110; 97140; 97162; 97164

== ENCOUNTER 2023-01-31 09:27 | Day surgery (SDC) | payer MEDICARE, BC, SELFPAY ==
[2023-01-30 09:33] VITALS: BMI 32.1
[2023-01-31] VITALS (7 sets, daily range): BP systolic 85–185; BP diastolic 33–84; PULSE 84–93; RESP 18; TEMP 36.3–36.6; O2SAT 95–98
--- NOTE | 2023-01-31 09:32 | HMH.SCOPE ---
Procedure: Date: 01/31/23 Patient Date of :: 1940 Procedure Performed:: Esophagogastroduodenoscopy with biopsies Total colonoscopy to terminal ileum with polypectomy using biopsy forceps and colon biopsies Indications:: Patient is a 82-year-old female whom I had seen in the past. Her primary care provider is Lemuel Benavidez MD. She did have a prior history of upper endoscopy performed on 03/21/2020 which revealed small to moderate sliding hiatal hernia, distal esophageal goblet cell metaplasia , tiny benign antral ulcerations. 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 Recommendations were for 1 year follow-up EGD. Patient has had several colonoscopies in the past. She had a colonoscopy in 2008 by [facility] gastroenterology. At that time there was diverticulosis and a 5-year follow-up colonoscopy was recommended. She has a prior history of positive Cologuard. I had performed colonoscopy on her on 10/14/2017 at which time there was noted to be diverticulosis and diminutive polyps. These were all hyperplastic. I recommended 5 to 10-year follow-up colonoscopy. Performing Provider:: Edwin Mcgill MD Referring Provider:: Lemuel Benavidez MD Sedation:: MAC sedation Procedure:: Patient history was obtained and appropriate physical examination was performed. Patient's medications and allergies were reviewed. Informed consent was obtained after explaining the benefits, alternatives, and risks of the procedure including, but not limited to, bleeding, perforation, missed lesions, and adverse reaction to anesthesia medications. Patient was transported to endoscopy procedure room. Patient was connected to monitoring devices. Throughout the procedure the patient's blood pressure, pulse, and oxygen saturations were monitored continuously. Patient identification and planned procedure were verified by the staff. Patient was positioned in lateral decubitus position. Attention was first turned to upper endoscopy. Olympus endoscope was inserted via the oropharynx. Esophagus was cannulated. Endoscope was advanced. Gastroesophageal junction was encountered at approximately 35 cm. Stomach was cannulated and insufflated. Retroflexion revealed tiny sliding hiatal hernia. There was mild diffuse nonerosive gastropathy but there were a couple of focal minimal erosions in the antrum. The pylorus was traversed. Duodenum appeared normal. Biopsies were obtained of the gastric antrum near the area of erosion. These were tiny. Endoscope was withdrawn into the distal esophagus and a couple biopsies were obtained at the gastroesophageal junction to assess for Garnica's esophagus. Endoscope was withdrawn. Next attention was turned to colonoscopy. Digital anorectal exam was performed. Variable stiffness Olympus colonoscope was inserted and advanced under direct visualization to the cecum. Adequacy of the colonic preparation was noted. The colonoscope was advanced a short distance into the terminal ileum. The colonoscope was then slowly withdrawn while carefully examining the color, texture, anatomy, and integrity of the mucosoa circumferentially. Within the rectum retroflexion was performed. Colonoscope was then withdrawn. . There was some retained stool but this could be mostly cleared with irrigation and suctioning. Terminal ileum appeared normal. However in the cecum adjacent to the ileocecal valve there were a couple of moderate ulcerations characterized by clean-based exudative ulcers. This may be secondary to mild ischemic colitis or other etiology such as NSAID induced ulceration. Multiple biopsies were obtained using cold biopsy forceps. Endoscope was withdrawn through the remainder of the colon. She had significant sigmoid diverticulosis with relatively heavy diverticular burden. There were numerous hyperplastic appearing rectos
--- NOTE | 2023-01-31 09:58 | P.PNANES_ITS ---
[facility] Disclaimer: The information contained in this section may have been updated after the patient was seen, as this information can be updated by other users. Medical History Hypertension Surgical History History of colonoscopy History of hysterectomy Family History Other Family history of diabetes mellitus type II Family history of hypothyroidism Social History Smoking Status: Never smoker second hand exposure: No alcohol intake: never substance use type: denies use current occupational status: retired Travel in the last 8 weeks: None household members: spouse housing: house current occupational exposures/hazards: No caffeine: Yes [facility] Anesthesia Checklist Patient Identification Patient Identification: Arm Band and Verbal (Name & ) Structural Data Admitted From: Home Planned Operative Procedure/s: EGD/Colonoscopy Consent for Planned Operative Procedure(s) Verified: Yes NPO Status Verified Time NPO: 00:00 Additional verifications Anesthesia Reactions: No Hx Blood Transfusions: No Blood Transfusion Reaction: No Airway Assessment Mallampati Score:: Class II C-Spine Mobility Assessed: Yes TMJ Mobility Assessed: Yes Dentition: Dentures-good fit Neurological Assessment Level of Consciousness: Awake Hx Seizures: No Numbness or tingling in extremities: No Anesthesia Plan Anesthesia Risk discussed: Yes Anesthesia Plan: Verified ASA Class: III Anesthesia Type: MAC
--- NOTE | 2023-01-31 11:07 | ECG_ITS ---
APPROVED REPORT Exam: Resting ECG HR:85 bpm ECG Measurements Heart Rate 85 AXES QRSd 92 QRS 25 QT 399 T 10 QTc [address] DEPRESSION, CONSIDER SUBENDOCARDIAL INJURY [0.1+ mV ST DEPRESSION] ABNORMAL ECG UNCONFIRMED REPORT Electronically signed by : Dakota Beebe MD 01/31/2023 14:40:54
--- NOTE | 2023-01-31 11:46 | CA_ITS ---
APPROVED REPORT EXAM: Comprehensive 2D, Doppler, and color-flow Echocardiogram [employer] Type Screw Machine Operator: Tess Gavin RT(R) Ht: 5 ft 2 in Wt: 170lbs BSA: 1.78 BP: 173/70 mmHg Indications: new onset AFIB post colonoscopy, HTN, hyperlipidemia, ex smoker. 2D Dimensions Left Atrium 4.98 cm F: 2.7 - 3.8 LVEF (Luna's) 49.20 % F: 54 - 74 LVOT 1.98 cm (M/F) 1.5-2.5 LV Volume 56.70 mL F: 46 - 106 LV Volume Index 31.7 mL/m2 F: 29 - 61 LA Volume 50.10 mL LA Volume Index 27.99 mL/m2 (M/F) 16-34 EF AP4 53.80 % EF AP2 49.8 % EF BP 49.2 % GL Strain -14.6 % M-Mode Dimensions RVDd 2.62 cm (0.9-2.6) LVDd 4.74 cm (3.5-5.7) Ao Diam 3.14 cm (2.0-3.7) LVDs 3.34 cm (3.5-5.7) IVSd 0.61 cm (0.6-1.1) PWd 0.87 cm (0.6-1.1) EF (Teich) 56.50% FS 29.50% EDV (Teich) 104.40 mL ESV (Teich) 45.40 mL Left Ventricle The left ventricle is normal size. The left ventricular systolic function is normal. The left ventricular ejection fraction is within the normal range. There is increased LV wall thickness. There is normal LV segmental wall motion. The left ventricular diastolic function is normal. LVEF is 60%. Right Ventricle The right ventricle is normal size. The right ventricular systolic function is normal. Atria The left atrium is mildly dilated. The right atrium size is normal. There is no Doppler evidence of interatrial shunt. Aortic Valve The aortic valve is mildly thickened. There is no aortic valvular stenosis. Trace aortic regurgitation. Mitral Valve The mitral valve leaflets are mildly thickened. No evidence of mitral valve stenosis. Trace mitral regurgitation. Tricuspid Valve The tricuspid valve leaflets are thin and pliable. Mild tricuspid regurgitation. RVSP is normal. Pulmonic Valve The pulmonary valve is normal in structure. Trace pulmonic regurgitation. Great Vessels The aortic root is normal in size. The ascending aorta is normal in size. IVC is normal in size and collapses >50% with inspiration. Pericardium There is no pericardial effusion. Other Information Study Quality: Fair Conclusion Normal biventricular systolic function. Mild LA dilation. Mild TR. Electronically signed by : Brittny Frankel MD 02/06/2023 00:01:03
[2023-01-31 12:06] LABS: Basophils # 0.1 K/mm3 (0-0.2); Basophils % 0.7 % (0.1-2.0); Eosinophils # 0.3 K/mm3 (0.0-0.4); Eosinophils % 3.3 % (0.1-12.0); Hematocrit 42.6 % (37.0-47.0); Hemoglobin 13.9 g/dL (12.2-16.2); Lymphocytes # 2.4 K/mm3 (0.7-4.5); Mean Corpuscular HGB Conc 32.6 g/dL (31.8-35.4); Mean Corpuscular Volume 98.2 fl (81-99); Monocytes # 0.5 K/mm3 (0.1-1.0); Platelet Count 347 K/mm3 (142-424); Red Blood Count 4.34 M/mm3 (4.20-5.40); Red Cell Distribution Width 14.8 % (11.5-17.5); White Blood Count 10.3 K/mm3 (4.8-10.8)
[2023-01-31 12:09] LABS: Chloride 101 mmol/L (98-107); Sodium 137 mmol/L (136-145)
[2023-01-31 12:10] LABS: Potassium 3.2 mmoL/L (3.5-5.1)
[2023-01-31 12:12] LABS: Alanine Aminotransferase 23 U/L (12-78); Albumin Level 4.1 g/dl (3.5-5.0); Albumin/Globulin Ratio 1.3 (1.1-1.8); Alkaline Phosphatase 81 U/L (38-126); Anion Gap 9.2 mEq/L (5-15); Aspartate Amino Transferase 40 U/L (14-36); Bilirubin,Total 0.5 mg/dl (0.2-1.3); Blood Urea Nitrogen 14 mg/dl (7-17); Carbon Dioxide 30 mmol/L (22.0-30.0); Creatinine Clearance Estimated 54 mL/min (50-200); Estimated Glomerular Filt Rate 80 ml/min (>60); GFR (African American) 97 ML/MIN (>60); Globulin 3.2 g/dL (1.3-3.2); Total Protein,Serum 7.3 g/dl (6.3-8.2)
[2023-01-31 12:13] LABS: Calcium 8.7 mg/dl (8.4-10.2); Glucose 99 mg/dl (74-100)
[2023-01-31 12:25] LABS: Troponin I < 0.01 ng/ml (0.00-0.034)
--- NOTE | 2023-01-31 12:32 | EXP.CARD.CON ---
History of Present Illness History of Present Illness Consult date: 01/31/23 Requesting physician: Edwin Mcgill Consult reason: atrial fibrillation Chief complaint: Post op A. fib, new diagnosis Additional Medical History:: 1. Hypertension 2. Degenerative arthritis of the knees bilaterally 3. Hyperlipidemia 4. Hypothyroidism, on replacement therapy 5. Remote tobacco use discontinued, greater than 30 years ago 6. History of colon polyps A. EGD colonoscopy, 01/31/2023, pertinent for colonic ulceration felt secondary to NSAID use 7. New diagnosed A-fib with controlled ventricular response, 01/31/2023 History of present illness: 82-year-old white female patient of Dr. Benavidez was seen in postop surgery today after having EGD and colonoscopy by Dr. Mcgill. Patient was found to be in atrial fibrillation which is a new diagnosis for her. Rate is controlled due to patient's ongoing therapy with verapamil for hypertension. She denies any chest pain, pressure or tightness. She does relate intermittent palpitations without dizziness or near syncope symptoms. She is on thyroid replacement with recent check earlier this week noted to be normal per patient. No prior history of cardiac issues but does have long-term treatment for hypertension and hyperlipidemia. She did smoke but quit greater than 30 years ago. EKG today shows atrial fibrillation at a rate of [address] segment depression inferior and laterally. Stat troponin today is normal. No old EKG For comparison. [facility] Disclaimer: The information contained in this section may have been updated after the patient was seen, as this information can be updated by other users. Surgical History History of colonoscopy History of hysterectomy Family History Other Family history of diabetes mellitus type II Family history of hypothyroidism Social History (Updated 01/31/23 @ 10:06 by Didi Espinoza RN) Smoking Status: Former smoker second hand exposure: No alcohol intake: never substance use type: denies use current occupational status: retired Travel in the last 8 weeks: None household members: spouse housing: house current occupational exposures/hazards: No caffeine: Yes Review of Systems Review of Systems Review of systems:: pertinent systems reviewed and negative unless documented below *Cardiovascular Cardiovascular: Denies chest pain, Denies dyspnea and Reports rapid heart rate *Respiratory Respiratory: Denies cough and Denies dyspnea Exam Data for Last 24 hours Vital signs and Labs for Last 24 Hours: Temp Pulse Resp BP Pulse Ox O2 Del Method O2 Flow Rate 97.8 F 89 18 108/50 L 98 Room Air 3 01/31/23 11:00 01/31/23 11:30 01/31/23 11:30 01/31/23 11:30 01/31/23 11:30 01/31/23 11:30 01/31/23 11:10 Laboratory Results - last 24 hr 01/31/23 11:57: WBC 10.3, RBC 4.34, Hgb 13.9, Hct 42.6, MCV 98.2, MCH 32.0 H, MCHC 32.6, RDW 14.8, Plt Count 347, MPV 8.0, Neut % (Auto) 68.0, Lymph % (Auto) 23.0, Dillon % (Auto) 5.0, Eos % (Auto) 3.3, Baso % (Auto) 0.7, Neut # (Auto) 7.0, Lymph # (Auto) 2.4, Dillon # (Auto) 0.5, Eos # (Auto) 0.3, Baso # (Auto) 0.1, Sodium 137, Potassium 3.2 L, Chloride 101, Carbon Dioxide 30, Anion Gap 9.2, BUN 14, Creatinine 0.70, Estimated Creat Clear 54, Estimated GFR 80, Est GFR ( Amer) 97, Glucose 99, Calcium 8.7, Total Bilirubin 0.5, AST 40 H, ALT 23, Alkaline Phosphatase 81, Troponin I < 0.01, Total Protein 7.3, Albumin 4.1, Globulin 3.2, Albumin/Globulin Ratio 1.3 I & O for Last 24 hours: Intake & Output 01/29/23 01/30/23 01/31/23 02/01/23 11:59 11:59 11:59 11:59 Weight 170 lb Constitutional Constitutional: no acute distress *Routine Respiratory Exam Respiratory: Present CTA bilaterally *Routine Cardiovascular Exam Cardiovascular: Present irregularly irregular; Absent murmur,
--- NOTE | 2023-01-31 12:32 | SUR.PHASEII ---
Labs, ECHO and Eliquis ordered per MICKEY Bae. Blood work obtained per Lab, initial dose Eliquis given as directed. Pt discharged from postop, taken to ECHO per wheelchair accompanied by family.
[2023-01-31 13:08] LABS: Free Thyroxine Index 4.4 ug/dL (5.93-13.13); T4 (Thyroxine) 11.1 ug/dl (5.53-11.0); Triiodothryronine (T3) Uptake 40 % (23.5-40.5)
[2023-01-31 13:22] LABS: Thyroid Stimulating Hormone 1.98 uIU/mL (0.465-4.68)
== END 2023-01-31 12:15 | disposition home or self-care (01) ==
PROVIDERS: Physician Assistant; PCP Family Medicine; Visit Provider Surgery
PROC: 0DJ08ZZ Inspection of Upper Intestinal Tract, Via Natural or Artificial Opening Endoscopic (ICD-10-PCS; CPT 43235; principal; 2023-01-31 10:30)
DX: I48.0 Paroxysmal atrial fibrillation (principal); E78.2 Mixed hyperlipidemia; Z87.891 Personal history of nicotine dependence; K44.9 Diaphragmatic hernia without obstruction or gangrene; Z12.11 Encounter for screening for malignant neoplasm of colon; K57.30 Diverticulosis of large intestine without perforation or abscess without bleeding; K31.89 Other diseases of stomach and duodenum; K31.A0 Gastric intestinal metaplasia, unspecified; K63.3 Ulcer of intestine; D12.7 Benign neoplasm of rectosigmoid junction
CPT/HCPCS: 43239; 45380; 80053; 84436; 84443; 84479; 84484; 85025; 88305; 93005; 93306

== ENCOUNTER 2023-08-11 13:42 | Outpatient (CLI) | payer MEDICARE, SELFPAY ==
--- NOTE | 2023-08-11 13:59 | MM_ITS ---
PROCEDURE INFORMATION: Exam: MG Bilateral Screening 3D Mammography Exam date and time: 08/11/2023 1:53 PM Age: 82 years old Clinical indication: Screening examination TECHNIQUE: Imaging protocol: Bilateral Screening tomosynthesis and 2D mammography including computer-aided detection (CAD) when performed. COMPARISON: 1. MG MM DIG SCREENING MAMM BI W/CAD 04/09/2022 11:09 AM 2. MG MM DIG SCREENING MAMM BI W/CAD 02/22/2021 10:15 AM FINDINGS: MAMMOGRAPHY: Breast composition: The breasts are almost entirely fatty. Mass: None. Architectural distortion: None. Calcifications: No suspicious calcifications. Asymmetric density: None. Skin thickening: None. Axillary adenopathy: None. IMPRESSION: No mammographic evidence of malignancy. Annual screening is recommended unless otherwise clinically indicated. ASSESSMENT: BI-RADS Category 1: Negative
== END 2023-08-11 23:59 | disposition home or self-care (01) ==
LOC: RAD 13:42
PROVIDERS: PCP Family Medicine; Visit Provider Family Medicine
DX: Z12.31 Encounter for screening mammogram for malignant neoplasm of breast (principal)
CPT/HCPCS: 77063; 77067

== ENCOUNTER 2024-01-16 10:01 | Emergency (ER) | payer MEDICARE, SELFPAY ==
[2024-01-16 10:02] VITALS: BP 166/78; PULSE 105; RESP 16; TEMP 36.7; O2SAT 98; BMI 27.4
[2024-01-16 10:30] VITALS: BP 187/80; PULSE 103; O2SAT 96
[2024-01-16] MEDS: ACETAMINOPHEN 500MG TAB 1000 MG PO (10:55)
[2024-01-16] MEDS: METHOCARBAMOL 500MG TABLET 500 MG PO (10:55)
[2024-01-16] MEDS: NAPROXEN 500MG TABLET 500 MG PO (10:55)
--- NOTE | 2024-01-16 11:32 | HMH.EDGENADL ---
Discharge Plan Disposition Patient Disposition: Home, Self-Care Condition: Good Prescriptions Prescriptions: New oxycodone 5 mg tablet 5 mg PO Q8H PRN (Reason: pain) 3 Days Qty: 9 0RF oxycodone 5 mg tablet 5 mg PO Q8H PRN (Reason: pain) Qty: 9 0RF No Action furosemide 20 mg tablet 20 mg PO Q OTHER DAY levothyroxine 25 mcg tablet 25 mcg PO DAILY dicyclomine 10 mg capsule 10 mg PO BID lisinopril 20 mg tablet 20 mg PO HS atorvastatin 20 mg tablet 20 mg PO HS multivitamin [Daily Multi-Vitamin] tablet 1 tab PO QAM omega-3 fatty acids [Fish Oil Concentrate] 1,000 mg capsule 1,000 mg PO ONCE verapamil 240 mg tablet extended release 240 mg PO DAILY pantoprazole 40 mg tablet,delayed release (DR/EC) 40 mg PO DAILY Qty: 90 3RF lansoprazole 30 mg capsule,delayed release(DR/EC) 30 mg PO DAILY Qty: 30 5RF diclofenac sodium 75 mg tablet,delayed release (DR/EC) See Rx Instructions .ROUTE .COMPLEX Qty: 90 3RF Dose Instruction: TAKE 1 TABLET BY MOUTH 2 TIMES DAILY NEEDED FOR SEVERE KNEE PAIN. Rx Instructions: TAKE 1 TABLET BY MOUTH 2 TIMES DAILY NEEDED FOR SEVERE KNEE PAIN. Eliquis 5 mg tablet See Rx Instructions .ROUTE .COMPLEX Qty: 180 3RF Dose Instruction: TAKE 1 TABLET BY MOUTH 2 TIMES DAILY. Rx Instructions: TAKE 1 TABLET BY MOUTH 2 TIMES DAILY. calcium citrate-vitamin D3 1 EACH tablet 1 each PO BID alendronate 70 MG tablet 70 mg PO WEEKLY Referrals Follow up/Referrals: Nathan Benavidez MD [Primary Care Provider] - See instructions Activity Restrictions/Add. Instructions Additional Instructions/Restrictions: As discussed please follow-up with your primary care provider. Please continue taking your prescribed medications. Should your symptoms worsen please return to ED. Clinical Impressions Clinical Impression: Leg pain, right Instructions Patient Instructions: DI for Knee Pain Print Language Print Language: Pashto Discharge ED Provider: Josh Solano General Adult HPI General Chief complaint: PAIN Stated complaint: Swelling/Pain in legs. Time Seen by Provider: 01/16/24 10:33 Mode of Arrival: Wheelchair Source of Information: Patient Limitations: No Limitations Description of Symptoms (Recalled from ER Triage Doc. by RN): Reports bilateral knee pain for 1 week. States the right knee is worse than the left but that both are hurting. States that Dr. Moreland reported for her to follow up if her pain returned. Patient reports that she took 800mg of Ibuprofen at 4 am with no relief. History of Present Illness HPI narrative: 83yoF patient presents with a chief complaint of worsening pain in her leg, particularly the right hip and leg. She reports that her feet are swollen and she is experiencing pain in the back. The patient denies any injury to the leg and states that the swelling has progressively worsened over the week despite taking a 25 mg fluid pill and applying ice. She also mentions increased frequency of urination last night, which she attributes to taking Miralax. The patient describes the pain as being present everywhere, but mainly in the right hip and leg. She reports that the pain is exacerbated by both walking and sitting down. She is currently taking an arthritis medication starting with the letter D for pain management, but it has not been effective in alleviating her symptoms. Additionally, the patient states that the pain is unbearable and she can't hardly take it. She mentions that the left side also hurts, but not as much as the right side. Please note that above description of symptoms, in this electronic medical record under categorization of recalled from ER triage doctor by RN are reflective of an initial nursing assessment, however, is not reflective of my full history and physical exam that was personally taken and clarified. Consequentially, this preceding description of symptoms, which may include the patient's categorized chief complaint in the EMR, do not reflect my personal clinical impression, and the ultimate description of history of present illness and patient stated complaints should be deferred to this section of the note. Unless stated otherwise or congruent with this section of the note, additional signs, symptoms, or incongruence should be interpreted as inaccurate with my clinical impression. Related Data Home Medications ?Medication ?Instructions ?Recorded ?Confirmed atorvastatin 20 mg tablet 20 mg PO HS Cholesterol 09/22/17 12/04/23 dicyclomine 10 mg capsule 10 mg PO BID abdominal pain 09/22/17 12/04/23 lisinopril 20 mg tablet 20 mg PO HS bp 09/22/17 12/04/23 multivitamin (Daily Multi-Vitamin 1 tab PO QAM Supplement 09/22/17 12/04/23 tablet) omega-3 fatty acids 1,000 mg 1,000 mg PO ONCE Supplement 09/22/17 12/04/23 capsule (Fish Oil Concentrate) calcium 200 mg (as 1 each PO BID Supplement 10/13/17 12/04/23 citrate)-vitamin D3 6.25 mcg (250 unit) tablet furosemide 20 mg tablet 20 mg PO Q OTHER DAY Fluid 12/02/19 12/04/23 alendronate 70 mg tablet 70 mg PO WEEKLY bone density 03/16/20 12/04/23 verapamil 240 mg tablet,extended 240 mg PO DAILY 03/30/21 12/04/23 release levothyroxine 25 mcg tablet 25 mcg PO DAILY 09/21/21 12/04/23 Previous Rx's ?Medication ?Instructions ?Recorded lansoprazole 30 mg capsule,delayed 30 mg PO DAILY BP #30 caps 08/10/21 release pantoprazole 40 mg tablet,delayed 40 mg PO DAILY #90 tabs 10/13/23 release apixaban 5 mg tablet (Eliquis) See Rx Instructions .Route 01/12/24 .COMPLEX #180 tabs diclofenac sodium 75 mg See Rx Instructions .Route 01/12/24 tablet,delayed release .COMPLEX #90 tabs oxycodone 5 mg tablet 5 mg PO Q8H PRN pain #9 tabs 01/16/24 oxycodone 5 mg tablet 5 mg PO Q8H PRN pain 3 days #9 tabs 01/16/24 Allergies Allergy/AdvReac Type Severity Reaction Status Date / Time No Known Allergies Allergy Verified 12/04/23 09:57 [facility] Disclaimer: The information contained in this section may have been updated after the patient was seen, as this information can be updated by other users. Medical History GERD (gastroesophageal reflux disease) Surgical History History of esophagogastroduodenoscopy (EGD) History of hysterectomy History of colonoscopy Family History Other Family history of diabetes mellitus type II Family history of hypothyroidism Social History Smoking Status: Unknown if ever smoked second hand exposure: No alcohol intake: never substance use type: denies use current occupational status: retired household members: spouse housing: house current occupational exposures/hazards: No caffeine: Yes Other Medical History Have you received the Flu Vaccine for this season: Yes Have you received the Pneumonia Vaccine: Yes ROS Obtained: Yes Systems reviewed as appropriate & no additional complaints except as documented Physical Exam General General appearance: alert and in no apparent distress Head Head exam: atraumatic and normocephalic Eye Eye exam: Present normal appearance and EOMI ENT ENT exam: Present normal exam Neck Neck exam: Present normal inspection Chest Chest inspection: Present normal inspection and symmetric chest wall rise; Absent tenderness Respiratory Respiratory exam: Present normal lung sounds bilaterally; Absent respiratory distress or wheezes Cardiovascular Cardiovascular exam: Present regular rate, normal rhythm and normal heart sounds Abdominal Exam Abdominal exam: Present soft and normal bowel sounds; Absent distention, tenderness, guarding or rebound Extremities Exam Extremities exam: Present normal inspection, full ROM and edema (BLE pitting edema); Absent tenderness Back Exam Back exam: Present normal inspection Neurological Exam Neurological exam: Present alert and oriented X3 Psychiatric Psychiatric exam: Present normal affect and normal mood Skin Skin exam: Present warm, dry, intact and normal color; Absent rash Medical Decision Making Medical Records Medical records reviewed: Yes I reviewed the patient's medical records. Screening: Per USPSTF and CDC recommendations, given the prevalence of disease in our region, it is our hospital?s policy to screen for HIV and viral Hepatitis for all patients aged 18 and over and those with ongoing risk factors. Manuel Inquiry Pt receiving controlled substance: Yes Manuel was queried for this patient: No Reason not queried -: Manuel login issues Risks and benefits of using a controlled substance: were not discussed with pt by me Vital Signs: 01/16/24 10:02 01/16/24 10:30 Temperature 98.0 F Temperature Source Oral Pulse Rate 103 H Pulse Rate [Radial] 105 H Respiratory Rate 16 Blood Pressure 187/80 H Blood Pressure [Right Arm] 166/78 H Blood Pressure Mean 105 Blood Pressure Mean [Right Arm] 107 Blood Pressure Source [Right Arm] Automatic Cuff Blood Pressure Position [Right Arm] Sitting 02 Sat by Pulse Oximetry 98 96 Oxygen Delivery Method Room Air Orders (Tests/Meds): ED MEDICATIONS Generic Name Dose Route Start Last Admin Trade Name Freq PRN Reason Stop Dose Admin Oxycodone HCl 5 mg 01/16/24 11:37 01/16/24 11:47 Oxycodone 5mg Immediate Release Tablet PO 02/15/24 11:36 5 mg Q4HP PRN Administration Severe Pain (7-10) Discontinued Medications Generic Name Dose Route Start Last Admin Trade Name Anthony PRN Reason Stop Dose Admin Acetaminophen 1,000 mg 01/16/24 10:51 01/16/24 10:55 Acetaminophen 500mg Tab PO 01/16/24 10:52 1,000 mg ONCE ONE Administration Methocarbamol 500 mg 01/16/24 10:51 01/16/24 10:55 Methocarbamol 500mg Tablet PO 01/16/24 10:52 500 mg BID ONE Administration Naproxen 500 mg 01/16/24 10:52 01/16/24 10:55 Naproxen 500mg Tablet PO 01/16/24 10:53 500 mg BID ONE Administration ORDERS Category Date Time Status HIV (1&2) Antibody Rapid Stat Lab 01/16/24 10:15 Ordered Hep C Ab with Reflex to RNA Stat Lab 01/16/24 10:15 Ordered Medical Decision Narrative: Patient with history and exam per above presenting for evaluation of acute on chronic leg pain Diagnoses considered include acute on chronic pain, arthritis, musculoskeletal pain, injury?patient denied any falls or traumatic injury ED workup and treatment included: As above My clinical impression at this time is most consistent with acute on chronic leg pain. On reassessment patient states she is feeling better following medication. At this time medically clear for discharge with outpatient follow-up. Patient is to follow-up with her primary care provider regarding her lower extremity edema and current Lasix regimen. Patient has no shortness of breath, chest pain, reassuring physical exam as far as chest lungs, abdomen pelvis ago. No noted anasarca. Advised to elevate legs to help with fluid retention. Patient to follow-up with her primary team for her osteoarthritis regarding ongoing pain in this acute on chronic exacerbation. Given instructions to return to ED if symptoms worsen. Patient agreeable with plan. Discharged home with hemodynamically stable vitals. I discussed my clinical impression with patient and answered all questions. At this time, the evidence for any other entities in the differential is insufficient to warrant any further testing or ED observation. This was explained to the patient. The patient was advised that persistent or worsening symptoms require further evaluation. Critical Care Critical Care Time Critical Care Time: No
[2024-01-16] MEDS: OXYCODONE 5MG IMMEDIATE RELEASE TABLET 5 MG PO (11:47)
[2024-01-16 15:16] VITALS: BP 165/80; PULSE 85; RESP 18; TEMP 36.8; O2SAT 97
[2024-01-16 15:29] VITALS: BP 165/80; PULSE 85; RESP 16; TEMP 36.8; O2SAT 95
== END 2024-01-16 15:20 | disposition home or self-care (01) ==
PROVIDERS: Emergency Provider Student in an Organized Health Care Education/Training Program; PCP Family Medicine
DX: M79.605 Pain in left leg (principal); M79.604 Pain in right leg

== ENCOUNTER 2024-01-18 18:56 | Inpatient (IN) | payer MEDICARE, SELFPAY ==
[2024-01-18 18:58] VITALS: BP 138/63; PULSE 74; RESP 18; TEMP 36.7; O2SAT 97; BMI 27.4
--- NOTE | 2024-01-18 19:21 | ECG_ITS ---
APPROVED REPORT Exam: Resting ECG HR:78 bpm ECG Measurements Heart Rate 78 AXES TN 152 P 59 QRSd 87 QRS 4 QT 342 T 42 QTc 376 Conclusion SINUS RHYTHM NORMAL ECG Electronically signed by : KISHAN ELIAS, 01/19/2024 20:23:25
--- NOTE | 2024-01-18 19:23 | XR_ITS ---
PROCEDURE INFORMATION: Exam: XR Chest Exam date and time: 01/18/2024 7:50 PM Age: 83 years old Clinical indication: Shortness of breath; Additional info: SOA TECHNIQUE: Imaging protocol: Radiologic exam of the chest. Views: 1 view. COMPARISON: CR XR CHEST AP 11/22/2019 1:24 PM FINDINGS: Lungs: Streaky opacities at the left lung base may reflect scarring but a small consolidation is not excluded. Pleural spaces: No large effusion or pneumothorax. Heart/Mediastinum: No evidence of mediastinal widening or cardiac silhouette enlargement; the mediastinum and heart appear within normal limits for contour and size. Vasculature: There are calcifications of the aortic arch. Bones/joints: No evidence of acute osseous abnormalities within the visualized portions of the thoracic spine and ribs. Osseous structures appear appropriate for patient age. IMPRESSION: Streaky opacities at the left lung base may reflect scarring but a small consolidation is not excluded.
--- NOTE | 2024-01-18 19:24 | ED_ITS ---
Discharge Plan Disposition Patient Disposition: Admitted Condition: Good Clinical Impressions Clinical Impression: SHAUN (acute kidney injury), Diarrhea, Gallstone Discharge ED Provider: Rola Sanchez General Adult HPI <MICKEY Bassett - Last Filed: 01/18/24 21:13> General Chief complaint: Nausea/Vomiting/Diarrhea Stated complaint: abdominal pain Time Seen by Provider: 01/18/24 19:14 Mode of Arrival: Wheelchair Source of Information: Patient Limitations: No Limitations Description of Symptoms (Recalled from ER Triage Doc. by RN): Patient report nausea, diarrhea and abdomen pain that started yesterday. History of Present Illness HPI narrative: 83-year-old female presents emergency department abdominal pain nausea and diarrhea for the last 2 days, she describes it as dark and watery . But denies any real hematochezia, melena or hematemesis. She denies any fever chills chest pain shortness of breath, denies urinary type symptomatology, denies any vomiting or any other symptoms at this time. Patient has been taking loperamide with little to no relief or diarrheal type symptoms, she denies any recent antibiotic use, patient was recently seen in the emergency department on 01/16/2024, acute on chronic leg pain with lower extremity swelling and edema consistent with her normal dependent edema, has been taking p.o. oxycodone only taken this medication twice, leg pain is improved. Other past medical history consistent with GERD/Garnica's esophagus, she is a former smoker, atrial fibrillation on anticoagulation therapy with Eliquis, chronic lymphedema, hyperlipidemia, osteoarthritis, hypothyroidism, hypertension, triage vitals unremarkable. Onset (ago): day(s) Related Data Home Medications ?Medication ?Instructions ?Recorded ?Confirmed atorvastatin 20 mg tablet 20 mg PO HS Cholesterol 09/22/17 12/04/23 dicyclomine 10 mg capsule 10 mg PO BID abdominal pain 09/22/17 12/04/23 lisinopril 20 mg tablet 20 mg PO HS bp 09/22/17 12/04/23 multivitamin (Daily Multi-Vitamin 1 tab PO QAM Supplement 09/22/17 12/04/23 tablet) omega-3 fatty acids 1,000 mg 1,000 mg PO ONCE Supplement 09/22/17 12/04/23 capsule (Fish Oil Concentrate) calcium 200 mg (as 1 each PO BID Supplement 10/13/17 12/04/23 citrate)-vitamin D3 6.25 mcg (250 unit) tablet furosemide 20 mg tablet 20 mg PO Q OTHER DAY Fluid 12/02/19 12/04/23 alendronate 70 mg tablet 70 mg PO WEEKLY bone density 03/16/20 12/04/23 verapamil 240 mg tablet,extended 240 mg PO DAILY 03/30/21 12/04/23 release levothyroxine 25 mcg tablet 25 mcg PO DAILY 09/21/21 12/04/23 Previous Rx's ?Medication ?Instructions ?Recorded lansoprazole 30 mg capsule,delayed 30 mg PO DAILY BP #30 caps 08/10/21 release pantoprazole 40 mg tablet,delayed 40 mg PO DAILY #90 tabs 10/13/23 release apixaban 5 mg tablet (Eliquis) See Rx Instructions .Route 01/12/24 .COMPLEX #180 tabs diclofenac sodium 75 mg See Rx Instructions .Route 01/12/24 tablet,delayed release .COMPLEX #90 tabs oxycodone 5 mg tablet 5 mg PO Q8H PRN pain #9 tabs 01/16/24 oxycodone 5 mg tablet 5 mg PO Q8H PRN pain 3 days #9 tabs 01/16/24 Allergies Allergy/AdvReac Type Severity Reaction Status Date / Time No Known Allergies Allergy Verified 12/04/23 09:57 [facility] <MICKEY Bassett - Last Filed: 01/18/24 21:13> [facility] Disclaimer: The information contained in this section may have been updated after the patient was seen, as this information can be updated by other users. Medical History GERD (gastroesophageal reflux disease) Surgical History History of esophagogastroduodenoscopy (EGD) History of hysterectomy History of colonoscopy Family History Other Family history of diabetes mellitus type II Family history of hypothyroidism Social History Smoking Status: Never smoker second hand exposure: No alcohol intake: never substance use type: denies use current occupational status: retired household members: spouse housing: house current occupational exposures/hazards: No caffeine: Yes Other Medical History Have you received the Flu Vaccine for this season: Yes Have you received the Pneumonia Vaccine: Yes <MICKEY Bassett - Last Filed: 01/18/24 21:13> ROS Obtained: Yes All systems reviewed & no additional complaints except as documented Physical Exam <MICKEY Bassett - Last Filed: 01/18/24 21:13> General General appearance: alert and in no apparent distress Head Head exam: atraumatic and normocephalic Eye Eye exam: Present PERRL and EOMI ENT ENT exam: Present mucous membranes moist Neck Neck exam: Present normal inspection Chest Chest inspection: Present normal inspection and symmetric chest wall rise Respiratory Respiratory exam: Present normal lung sounds bilaterally; Absent respiratory distress Cardiovascular Cardiovascular exam: Present regular rate and normal rhythm Abdominal Exam Abdominal exam: Present soft and tenderness; Absent guarding, rebound, rigidity, Pringle's sign, Rovsing's sign or tenderness at [place]Bur[place]'s Point Abdominal tenderness: Present diffuse and mild Comment: Mild diffuse nonspecific nonfocal abdominal tenderness to palpation. Extremities Exam Extremities exam: Present normal inspection Neurological Exam Neurological exam: Present alert and oriented X3 Psychiatric Psychiatric exam: Present normal affect Skin Skin exam: Present warm and dry Medical Decision Making <MICKEY Bassett - Last Filed: 01/18/24 21:13> Medical Records Medical records reviewed: Yes I reviewed the patient's medical records. Screening: Per USPSTF and CDC recommendations, given the prevalence of disease in our region, it is our hospital?s policy to screen for HIV and viral Hepatitis for all patients aged 18 and over and those with ongoing risk factors. aMnuel Inquiry Pt receiving controlled substance: No Manuel was queried for this patient: No Vital Signs: 01/18/24 18:58 01/18/24 20:00 01/18/24 20:30 Temperature 98.0 F Temperature Source Oral Pulse Rate 81 Pulse Rate [Radial] 74 Respiratory Rate 18 Blood Pressure 103/36 L Blood Pressure [Right Arm] 138/63 Blood Pressure Mean 58 Blood Pressure Mean [Right Arm] 88 Blood Pressure Source Blood Pressure Source [Right Arm] Automatic Cuff Blood Pressure Position Blood Pressure Position [Right Arm] Sitting 02 Sat by Pulse Oximetry 97 94 L 94 L Oxygen Delivery Method Room Air 01/18/24 23:16 01/18/24 23:21 Temperature 98.0 F Temperature Source Oral Pulse Rate 54 L 83 Pulse Rate [Radial] Respiratory Rate 16 Blood Pressure 128/61 128/61 Blood Pressure [Right Arm] Blood Pressure Mean Blood Pressure Mean [Right Arm] Blood Pressure Source Automatic Cuff Blood Pressure Source [Right Arm] Blood Pressure Position Sitting Blood Pressure Position [Right Arm] 02 Sat by Pulse Oximetry 100 Oxygen Delivery Method Room Air Lab Data Lab results reviewed: Yes I reviewed the patient's lab results. Lab Results 01/18/24 21:00: WBC 4.5 L, RBC 4.17 L, Hgb 13.5, Hct 41.2, MCV 98.7, MCH 32.3 H, MCHC 32.7, RDW 14.3, Plt Count 230, MPV 9.1, Neut % (Auto) 91.4 H, Lymph % (Auto) 6.1 L, [place] % (Auto) 1.6 L, Eos % (Auto) 0.2, Baso % (Auto) 0.7, Neut # (Auto) 4.1, Lymph # (Auto) 0.3 L, [place] # (Auto) 0.1, Eos # (Auto) 0.0, Baso # (Auto) 0.0, Total Counted 100, Neutrophils % (Manual) 82 H, Lymphocytes % (Manual) 10, Monocytes % (Manual) 8, Platelet Estimate Normal, Poikilocytosis 2+, Target Cells 2+, [place] Cells 2+, Schistocytes 1+, Sodium 133 L, Potassium 4.5, Chloride 105, Carbon Dioxide 12 L, Anion Gap 20.5 H, BUN 66 H, Creatinine 2.50 H, Estimated Creat Clear 19, Estimated GFR 18 L*, Est GFR ( Amer) 22 L, Glucose 61 L, Lactate 4.5 H, Calcium 9.7, Magnesium 2.4 H, Total Bilirubin 0.7, AST 89 H, ALT 40, Alkaline Phosphatase 153 H, Total Protein 6.3, Albumin 3.2 L, Globulin 3.1, Albumin/Globulin Ratio 1.0 L, Lipase 58, HIV 1&2 Antibody Rapid Nonreactive 01/18/24 21:00 01/18/24 21:00 Orders (Tests/Meds): ED MEDICATIONS Generic Name Dose Route Start Last Admin Trade Name Freq PRN Reason Stop Dose Admin Acetaminophen 650 mg 01/18/24 22:50 Acetaminophen 325mg Tab PO 02/17/24 22:49 Q6HP PRN Fever or Mild Pain (1-3) Sodium Chloride 1,000 mls @ 50 mls/hr 01/18/24 23:00 Sod Chlor 0.9% 1000ml Bag IV 02/17/24 22:59 .Q20H DELPHINE Ondansetron HCl 4 mg 01/18/24 22:50 Ondansetron 4mg/2ml Vial IV 02/17/24 22:49 Q8HP PRN Nausea And Vomiting Discontinued Medications Generic Name Dose Route Start Last Admin Trade Name Freq PRN Reason Stop Dose Admin Sodium Chloride 1,000 mls @ 999 mls/hr 01/18/24 21:32 01/18/24 21:40 Sod Chlor 0.9% 1000ml Bag IV 01/18/24 22:32 999 mls/hr .Q1H1M ONE Administration Sodium Chloride 1,000 mls @ 999 mls/hr 01/18/24 22:18 01/18/24 22:29 Sod Chlor 0.9% 1000ml Bag IV 01/18/24 23:18 999 mls/hr .Q1H1M ONE Administration Morphine Sulfate 2 mg 01/18/24 20:28 01/18/24 21:21 Morphine 4mg/Ml Syringe IV 01/18/24 20:29 Not Given ONCE ONE Morphine Sulfate 2 mg 01/18/24 21:20 01/18/24 21:23 Morphine 2mg/Ml Syringe IV 01/18/24 21:21 2 mg ONCE ONE Administration Ondansetron HCl 4 mg 01/18/24 21:34 01/18/24 21:39 Ondansetron 4mg/2ml Vial IV 01/18/24 21:35 4 mg ONCE ONE Administration ORDERS Category Date Time Status CT abdomen pelvis wo con Stat Cat Scan 01/18/24 21:37 Completed XR chest portable Stat Exams 01/18/24 19:23 Completed Complete Blood Count Auto Diff Stat Lab 01/18/24 21:00 Completed Comprehensive Metabolic Panel Stat Lab 01/18/24 21:00 Completed Diarrhea 23 Panel, PCR Stat Lab 01/18/24 21:37 Ordered HIV (1&2) Antibody Rapid Stat Lab 01/18/24 21:00 Completed Hep C Ab with Reflex to RNA Stat Lab 01/18/24 21:00 Received Lactic Acid Stat Lab 01/18/24 21:00 Completed Lipase Stat Lab 01/18/24 21:00 Completed Magnesium Stat Lab 01/18/24 21:00 Completed Occult Blood,Stool Stat Lab 01/18/24 22:42 Ordered Urinalysis and Microscopic Stat Lab 01/18/24 19:22 Ordered Blood Culture Stat Micro 01/18/24 23:15 Received Urine Culture Stat Micro 01/18/24 22:18 Ordered Medical Decision Narrative: 83-year-old female presents emergency department with a 2-day history of nausea, diarrhea, abdominal pain, differential diagnose include but limited to gastritis, GERD, diverticulitis, pancreatitis, cholelithiasis, cholecystitis, appendicitis, cardiac arrhythmia, electrolyte disturbance, gastroenteritis, small bowel obstruction. Will do basic laboratory studies, lipase, lactate, chest x-ray, CT abdomen pelvis with contrast, chest x-ray, EKG, magnesium level, UA will give 2 mg IV morphine for pain.. The patient's EKG, NSR at 78 bpm NM within normals, QT interval within normals there is no STEMI. I reviewed patient's chest x-ray along the corresponding radiologic report, there are streaky opacities in the left lung base may reflect scarring but a small consolidation is not excluded. I discussed this patient's case with the attending physician Dr. Sanchez at shift change she will be assuming the patient's care/workup, pending laboratory studies, urinalysis and imaging studies. <Rola Sanchez, - Last Filed: 01/18/24 23:29> Vital Signs: 01/18/24 18:58 01/18/24 20:00 01/18/24 20:30 Temperature 98.0 F Temperature Source Oral Pulse Rate 81 Pulse Rate [Radial] 74 Respiratory Rate 18 Blood Pressure 103/36 L Blood Pressure [Right Arm] 138/63 Blood Pressure Mean 58 Blood Pressure Mean [Right Arm] 88 Blood Pressure Source Blood Pressure Source [Right Arm] Automatic Cuff Blood Pressure Position Blood Pressure Position [Right Arm] Sitting 02 Sat by Pulse Oximetry 97 94 L 94 L Oxygen Delivery Method Room Air 01/18/24 23:16 01/18/24 23:21 Temperature 98.0 F Temperature Source Oral Pulse Rate 54 L 83 Pulse Rate [Radial] Respiratory Rate 16 Blood Pressure 128/61 128/61 Blood Pressure [Right Arm] Blood Pressure Mean Blood Pressure Mean [Right Arm] Blood Pressure Source Automatic Cuff Blood Pressure Source [Right Arm] Blood Pressure Position Sitting Blood Pressure Position [Right Arm] 02 Sat by Pulse Oximetry 100 Oxygen Delivery Method Room Air Lab Data Lab Results 01/18/24 21:00: WBC 4.5 L, RBC 4.17 L, Hgb 13.5, Hct 41.2, MCV 98.7, MCH 32.3 H, MCHC 32.7, RDW 14.3, Plt Count 230, MPV 9.1, Neut % (Auto) 91.4 H, Lymph % (Auto) 6.1 L, [place] % (Auto) 1.6 L, Eos % (Auto) 0.2, Baso % (Auto) 0.7, Neut # (Auto) 4.1, Lymph # (Auto) 0.3 L, [place] # (Auto) 0.1, Eos # (Auto) 0.0, Baso # (Auto) 0.0, Total Counted 100, Neutrophils % (Manual) 82 H, Lymphocytes % (Manual) 10, Monocytes % (Manual) 8, Platelet Estimate Normal, Poikilocytosis 2+, Target Cells 2+, [place] Cells 2+, Schistocytes 1+, Sodium 133 L, Potassium 4.5, Chloride 105, Carbon Dioxide 12 L, Anion Gap 20.5 H, BUN 66 H, Creatinine 2.50 H, Estimated Creat Clear 19, Estimated GFR 18 L*, Est GFR ( Amer) 22 L, Glucose 61 L, Lactate 4.5 H, Calcium 9.7, Magnesium 2.4 H, Total Bilirubin 0.7, AST 89 H, ALT 40, Alkaline Phosphatase 153 H, Total Protein 6.3, Albumin 3.2 L, Globulin 3.1, Albumin/Globulin Ratio 1.0 L, Lipase 58, HIV 1&2 Antibody Rapid Nonreactive Orders (Tests/Meds): ED MEDICATIONS Generic Name Dose Route Start Last Admin Trade Name Freq PRN Reason Stop Dose Admin Acetaminophen 650 mg 01/18/24 22:50 Acetaminophen 325mg Tab PO 02/17/24 22:49 Q6HP PRN Fever or Mild Pain (1-3) Sodium Chloride 1,000 mls @ 50 mls/hr 01/18/24 23:00 Sod Chlor 0.9% 1000ml Bag IV 02/17/24 22:59 .Q20H DELPHINE Ondansetron HCl 4 mg 01/18/24 22:50 Ondansetron 4mg/2ml Vial IV 02/17/24 22:49 Q8HP PRN Nausea And Vomiting Discontinued Medications Generic Name Dose Route Start Last Admin Trade Name Anthony PRN Reason Stop Dose Admin Sodium Chloride 1,000 mls @ 999 mls/hr 01/18/24 21:32 01/18/24 21:40 Sod Chlor 0.9% 1000ml Bag IV 01/18/24 22:32 999 mls/hr .Q1H1M ONE Administration Sodium Chloride 1,000 mls @ 999 mls/hr 01/18/24 22:18 01/18/24 22:29 Sod Chlor 0.9% 1000ml Bag IV 01/18/24 23:18 999 mls/hr .Q1H1M ONE Administration Morphine Sulfate 2 mg 01/18/24 20:28 01/18/24 21:21 Morphine 4mg/Ml Syringe IV 01/18/24 20:29 Not Given ONCE ONE Morphine Sulfate 2 mg 01/18/24 21:20 01/18/24 21:23 Morphine 2mg/Ml Syringe IV 01/18/24 21:21 2 mg ONCE ONE Administration Ondansetron HCl 4 mg 01/18/24 21:34 01/18/24 21:39 Ondansetron 4mg/2ml Vial IV 01/18/24 21:35 4 mg ONCE ONE Administration ORDERS Category Date Time Status CT abdomen pelvis wo con Stat Cat Scan 01/18/24 21:37 Completed XR chest portable Stat Exams 01/18/24 19:23 Completed Complete Blood Count Auto Diff Stat Lab 01/18/24 21:00 Completed Comprehensive Metabolic Panel Stat Lab 01/18/24 21:00 Completed Diarrhea 23 Panel, PCR Stat Lab 01/18/24 21:37 Ordered HIV (1&2) Antibody Rapid Stat Lab 01/18/24 21:00 Completed Hep C Ab with Reflex to RNA Stat Lab 01/18/24 21:00 Received Lactic Acid Stat Lab 01/18/24 21:00 Completed Lipase Stat Lab 01/18/24 21:00 Completed Magnesium Stat Lab 01/18/24 21:00 Completed Occult Blood,Stool Stat Lab 01/18/24 22:42 Ordered Urinalysis and Microscopic Stat Lab 01/18/24 19:22 Ordered Blood Culture Stat Micro 01/18/24 23:15 Received Urine Culture Stat Micro 01/18/24 22:18 Ordered Medical Decision Narrative: 83-year-old female presents emergency department with a 2-day history of nausea, diarrhea, abdominal pain, differential diagnose include but limited to gastritis, GERD, diverticulitis, pancreatitis, cholelithiasis, cholecystitis, appendicitis, cardiac arrhythmia, electrolyte disturbance, gastroenteritis, small bowel obstruction. Will do basic laboratory studies, lipase, lactate, chest x-ray, CT abdomen pelvis with contrast, chest x-ray, EKG, magnesium level, UA will give 2 mg IV morphine for pain.. The patient's EKG, NSR at 78 bpm NM within normals, QT interval within normals there is no STEMI. I reviewed patient's chest x-ray along the corresponding radiologic report, there are streaky opacities in the left lung base may reflect scarring but a small consolidation is not excluded. I discussed this patient's case with the attending physician Dr. Sanchez at shift change she will be assuming the patient's care/workup, pending laboratory studies, urinalysis and imaging studies. DO Daniel: I was consulted by the ZAID, and we discussed the complexity of the problems being addressed. I approved the treatment and management plan for this patient's care in the emergency department, thus performing a substantive portion of the medical decision making. I assumed care of the patient at 2100 after departure of the ZAID. She has significant SHAUN and concerns for dehydration based on lab evaluation. Hemoglobin is stable. No significant leukocytosis. She does have elevated lactic acid. She was given 2 L bolus of IV fluids and then started on maintenance fluids. She was found to have a borderline low blood glucose, so she was given oral challenge with juice with improvement in her glucose. No vomiting afterward. She is not able to provide stool specimen here. CT scan demonstrates gallstone without secondary findings concerning for cholecystitis. She has a normal bilirubin. Abdominal exam demonstrates no tenderness in the right upper quadrant, so I feel this likely is not related. Most of her pain is in the left lower quadrant. Ultimately, given her significant SHAUN with concerns for profuse diarrhea, I feel she would benefit from admission for continued monitoring and resuscitation. I had an interactive discussion with Dr. Lane who accepted the patient for admission. She was admitted in stable condition. Rola Sanchez DO Critical Care <MICKEY Bassett - Last Filed: 01/18/24 21:13> Critical Care Time Critical Care Time: No
[2024-01-18 20:00] VITALS: BP 103/36; O2SAT 94
[2024-01-18 20:30] VITALS: PULSE 81; O2SAT 94
[2024-01-18 21:22] LABS: Albumin Level 3.2 g/dl (3.5-5.0); Basophils % 0.7 % (0.1-2.0); Chloride 105 mmol/L (98-107); Eosinophils % 0.2 % (0.1-12.0); Hematocrit 41.2 % (37.0-47.0); Hemoglobin 13.5 g/dL (12.2-16.2); Lymphocytes # 0.3 K/mm3 (0.7-4.5); Lymphocytes % 6.1 % (10-50); Mean Corpuscular HGB Conc 32.7 g/dL (31.8-35.4); Mean Corpuscular Hemoglobin 32.3 pg (27.0-31.2); Mean Corpuscular Volume 98.7 fl (81-99); Mean Platelet Volume 9.1 fl (7.4-10.4); Monocytes # 0.1 K/mm3 (0.1-1.0); Monocytes % 1.6 % (1.7-9.3); Neutrophils # 4.1 K/mm3 (1.8-7.8); Neutrophils % 91.4 % (37.0-80.0); Platelet Count 230 K/mm3 (142-424); Potassium 4.5 mmoL/L (3.5-5.1); Red Blood Count 4.17 M/mm3 (4.20-5.40); Red Cell Distribution Width 14.3 % (11.5-17.5); Sodium 133 mmol/L (136-145); White Blood Count 4.5 K/mm3 (4.8-10.8)
[2024-01-18] MEDS: MORPHINE 2MG/ML SYRINGE 2 MG IV (21:23)
[2024-01-18 21:25] LABS: Alanine Aminotransferase 40 U/L (12-78); Alkaline Phosphatase 153 U/L (38-126); Anion Gap 20.5 mEq/L (5-15); Aspartate Amino Transferase 89 U/L (14-36); Bilirubin,Total 0.7 mg/dl (0.2-1.3); Blood Urea Nitrogen 66 mg/dl (7-17); Calcium 9.7 mg/dl (8.4-10.2); Carbon Dioxide 12 mmol/L (22.0-30.0); Globulin 3.1 g/dL (1.3-3.2); Glucose 61 mg/dl (74-100); Lipase 58 U/L (23-300); Total Protein,Serum 6.3 g/dl (6.3-8.2)
[2024-01-18 21:26] LABS: Magnesium 2.4 mg/dl (1.6-2.3)
[2024-01-18 21:27] LABS: Lactic Acid 4.5 mmol/L (0.7-2.1)
--- NOTE | 2024-01-18 21:27 | PC.NURSE ---
CRITICAL LAB CALLED, PATIENT LACTIC 4.5. AWARE
[2024-01-18 21:31] LABS: MANUAL DIFFERENTIAL MANUAL DIFFERENTIAL (MANUAL DIFF)
[2024-01-18 21:32] LABS: Creatinine Clearance Estimated 19 mL/min (50-200); Estimated Glomerular Filt Rate 18 ml/min (>60); GFR (African American) 22 ML/MIN (>60)
--- NOTE | 2024-01-18 21:37 | CT_ITS ---
PROCEDURE INFORMATION: Exam: CT Abdomen And Pelvis Without Contrast Exam date and time: 01/18/2024 9:59 PM Age: 83 years old Clinical indication: Other: Diarrhea; Additional info: Profuse diarrhea, michael TECHNIQUE: Imaging protocol: Computed tomography of the abdomen and pelvis without contrast. Radiation optimization: All CT scans at this facility use at least one of these dose optimization techniques: automated exposure control; mA and/or kV adjustment per patient size (includes targeted exams where dose is matched to clinical indication); or iterative reconstruction. COMPARISON: 1. CR XR PELVIS 1-2V 11/22/2019 1:22 PM 2. CR XR CHEST PORTABLE 01/18/2024 7:50 PM 3. CR XR CHEST AP 11/22/2019 1:24 PM FINDINGS: Lungs: Scattered areas of bronchial wall thickening which are likely chronic inflammatory. A few areas of subpleural reticulation are noted, nonspecific. Liver: Normal. Gallbladder and biliary ducts: The gallbladder is significantly distended with a large stone, consider right upper quadrant ultrasound for further evaluation. Pancreas: Normal. Spleen: Normal. Adrenal glands: The adrenal glands appear normal. Kidneys and ureters: Simple appearing right upper pole renal cyst. Stomach and bowel: There are scattered colonic diverticula. Appendix: No evidence of appendicitis. Intraperitoneal space: Unremarkable. Vasculature: There is atherosclerotic disease of the visualized aorta and its major branch vessels. Lymph nodes: No lymphadenopathy. Urinary bladder: There is moderate distention of the urinary bladder. Reproductive: The patient has undergone prior hysterectomy. Bones/joints: There is diffuse degenerative disease of the visualized osseous structures. Soft tissues: There are postsurgical changes of the ventral abdominal wall. IMPRESSION: 1. The gallbladder is significantly distended with a large stone, consider right upper quadrant ultrasound for further evaluation. 2. Otherwise, incidental findings as above. COMMENTS: Consistent with the [place] [employer]'s Incidental Findings Committee white paper (J Am Maday Radiol 2018): Any incidental renal lesion less than 1 cm or classified as too small to characterize, or any incidental cystic renal lesion characterized as simple-appearing, is likely benign. No follow-up imaging is recommended for these lesions per consensus recommendations based on imaging criteria.
[2024-01-18] MEDS: ONDANSETRON 4MG/2ML VIAL 4 MG IV (21:39)
[2024-01-18] MEDS: 0.9 % SODIUM CHLORIDE 1000ML 1,000 ML 999 ML IV ×2 (21:40→22:29)
[2024-01-18 21:50] LABS: Lymphocytes % 10 % (10-50); Monocytes % 8 % (2-9); Neutrophils % 82 % (42-76); Poikilocytosis 2+; Target Cells 2+; Total Cells Counted 100
[2024-01-18 21:51] LABS: Burr Cells 2+; Platelet Estimate Normal; Schistocytes 1+
[2024-01-18 21:52] LABS: HIV (1&2) Antibody Rapid NONREACTIVE (NONREACTIVE)
--- NOTE | 2024-01-18 22:05 | PC.NURSE ---
Pt return from CT
--- NOTE | 2024-01-18 23:09 | PC.NURSE ---
Report called to Latoya GARCIA
[2024-01-18 23:16] VITALS: BP 128/61; PULSE 54; O2SAT 100
--- NOTE | 2024-01-18 23:16 | PC.NURSE ---
Collected 2 sets of blood cultures and are sent to the lab
[2024-01-18 23:21] VITALS: BP 128/61; PULSE 83; RESP 16; TEMP 36.7; O2SAT 100
[2024-01-18] MEDS: ACETAMINOPHEN 325MG TAB 650 MG PO (23:51)
[2024-01-19] VITALS (31 sets, daily range): BP systolic 85–156; BP diastolic 30–61; PULSE 88–106; RESP 18–37; TEMP 36.9–40.3; O2SAT 91–100; BMI 27.6
[2024-01-19] MEDS: ONDANSETRON 4MG/2ML VIAL 4 MG IV (01:10)
[2024-01-19 01:11] LABS: Reflex Lactic Add Lactic Reflex
[2024-01-19 03:11] LABS: Microscopic, Urine URINE MICROSCOPIC (MICROSCOPIC)
[2024-01-19 03:13] LABS: Appearance,Urine CLEAR (Clear); Blood, Urine 3+ (Negative); Color,Urine YELLOW (Yellow); Glucose,Urine (UA) Negative (Negative); Ketones,Urine TRACE (Negative); Leukocyte Esterase,Urine 2+ (Negative); Nitrate,Urine POSITIVE (Negative); Protein,Urine TRACE (Negative); Specific Gravity, Urine >= 1.030 (1.005-1.030)
[2024-01-19 03:15] LABS: Bilirubin,Urine 1+ (Negative)
[2024-01-19 03:27] LABS: Reflex Lactic (2 hrs) Add Lactic Reflex
[2024-01-19 03:36] LABS: WBC,Urine 50-100 #/hpf (0-3)
[2024-01-19 03:37] LABS: Amorphous Sediment,Urine 2+ /lpf; Bacteria,Urine 2+ /lpf; Squamous Epithelial Cell,Urine 20-50 #/hpf (0-5)
--- NOTE | 2024-01-19 04:21 | ECG_ITS ---
APPROVED REPORT Exam: Resting ECG HR:92 bpm ECG Measurements Heart Rate 92 AXES QRSd 92 QRS 57 QT 322 T -60 QTc 372 Conclusion ATRIAL FIBRILLATION WITH ABERRANT CONDUCTION OR VENTRICULAR PREMATURE COMPLEXES ST DEVIATION AND MODERATE T-WAVE ABNORMALITY, CONSIDER INFERIOR ISCHEMIA [-0.1+ mV T-WAVE IN II/aVF] ABNORMAL ECG UNCONFIRMED REPORT Electronically signed by : Dakota Beebe MD 01/20/2024 08:47:11
[2024-01-19 04:28] LABS: VBG Base Excess -16.2 mmol/L (-2.4-2.3); VBG HCO3 11.7 mmol/L (23-30); VBG Oxygen Saturation 66.9 % (50-70); VBG PCO2 30.1 mmol/L (35-51); VBG PH 7.21 mmol/L (7.31-7.41); VBG PO2 35.9 mmol/L (28-40); VBG Total CO2 12.7 mmol/L (23-27)
[2024-01-19 04:32] LABS: Lactate Venous 6.7 mmol/L (0.4-2.0)
[2024-01-19] MEDS: LEVALBUTEROL 1.25MG/3ML NEB 1.25 MG IH (04:35)
[2024-01-19 04:39] LABS: Lactic Acid Follow up (RFLX 2) 5.7 mmol/L (0.7-2.1)
[2024-01-19 04:52] LABS: Troponin I < 0.01 ng/ml (0.00-0.034)
--- NOTE | 2024-01-19 05:00 | XR_ITS ---
PROCEDURE INFORMATION: Exam: XR Chest Exam date and time: 01/19/2024 4:28 AM Age: 83 years old Clinical indication: Shortness of breath; Additional info: SOA TECHNIQUE: Imaging protocol: Radiologic exam of the chest. Views: 1 view. COMPARISON: CR XR CHEST PORTABLE 01/18/2024 7:50 PM FINDINGS: Lungs: Relatively unchanged subtle bibasilar patchy opacities, [id number]. Slight thickening of the minor fissure. No overt pulmonary consolidation. Slight increased pulmonary vascular congestion noted. Pleural spaces: No pleural effusion. No pneumothorax. Heart/Mediastinum: No cardiomegaly. Atherosclerotic calcification of the thoracic aorta. Bones/joints: Within normal limits. IMPRESSION: 1. Relatively unchanged subtle bibasilar patchy opacities, [id number]-right. Clinical correlation for infection recommended. 2. Slight increased pulmonary vascular congestion.
[2024-01-19 05:05] LABS: Albumin Level 2.8 g/dl (3.5-5.0); Chloride 107 mmol/L (98-107); Potassium 4.2 mmoL/L (3.5-5.1); Sodium 135 mmol/L (136-145)
[2024-01-19 05:08] LABS: Alanine Aminotransferase 50 U/L (12-78); Albumin/Globulin Ratio 0.9 (1.1-1.8); Alkaline Phosphatase 185 U/L (38-126); Anion Gap 22.2 mEq/L (5-15); Aspartate Amino Transferase 122 U/L (14-36); Bilirubin,Total 0.8 mg/dl (0.2-1.3); Blood Urea Nitrogen 65 mg/dl (7-17); Calcium 9.2 mg/dl (8.4-10.2); Glucose 146 mg/dl (74-100); Total Protein,Serum 5.8 g/dl (6.3-8.2)
[2024-01-19 05:10] LABS: Carbon Dioxide 10 mmol/L (22.0-30.0)
[2024-01-19 05:10] LABS: Basophils % 0.6 % (0.1-2.0); Eosinophils % 0.2 % (0.1-12.0); Hematocrit 38.9 % (37.0-47.0); Hemoglobin 12.4 g/dL (12.2-16.2); Lymphocytes # 0.4 K/mm3 (0.7-4.5); Lymphocytes % 6.5 % (10-50); Mean Corpuscular HGB Conc 31.9 g/dL (31.8-35.4); Mean Corpuscular Hemoglobin 31.6 pg (27.0-31.2); Mean Corpuscular Volume 99.2 fl (81-99); Mean Platelet Volume 10.4 fl (7.4-10.4); Monocytes # 0.1 K/mm3 (0.1-1.0); Monocytes % 1.9 % (1.7-9.3); Neutrophils # 5.8 K/mm3 (1.8-7.8); Neutrophils % 90.8 % (37.0-80.0); Platelet Count 192 K/mm3 (142-424); Red Blood Count 3.92 M/mm3 (4.20-5.40); Red Cell Distribution Width 14.7 % (11.5-17.5); White Blood Count 6.4 K/mm3 (4.8-10.8)
[2024-01-19 05:17] LABS: Activated Partial Thrombo Time 40.7 seconds (22.8-30.6); INR 1.42 (0.9-1.1); Prothrombin Time 15.4 seconds (10.1-12.5)
--- NOTE | 2024-01-19 05:22 | PC.NURSE ---
0345 Pt called out feeling hot, like she had a fever or was having a reaction to something . She requested to get back up to chair. Pt was assisted back to the chair, VS checked at 149/88-97-99.2 rectal temp and 02 sats 94%. FSBS found to be 41. Internal Control Manager provided pt with OJ which she was able to drink most of. Pt then began to have difficulty with speech, swallowing and sucking from a straw. Pt with equal hand lockstitch hemmer, PE Recheck FSBS was 62 409 am pushed 1/2 amp of D50. BP 150/[address] paged. 415 Rapid response called. EKG done BP 150/63 Rectal temp 96.9 at which time Apoorva hugger was initiated and 500 ml of warm fluid infusing. 421-FSBS 90, [address] returned call. Updated him on pt current status and what has transpired. 424 20 guage started in LAC, Rocephin infusing. Noted skin team to left upper arm 430 BP 141/76 HR 90 RR 36 and shallow. Xopenex neb treatment ordered to be given stat Pt transferred to ICU bed
[2024-01-19 05:23] LABS: Creatinine Clearance Estimated 19 mL/min (50-200); Estimated Glomerular Filt Rate 19 ml/min (>60); GFR (African American) 23 ML/MIN (>60)
--- NOTE | 2024-01-19 05:26 | PC.NURSE ---
Addendum entered by Barbara Lane RN 01/19/24 07:41: intubation/rapid response note 0528- MD Rodriguez to bedside 0536-66% o2 33RR 121/69 HR 101 0539- 1 amp bicarb administered 0540- FSBS 108 0547- Levophed administered @30mcg/min per Rodriguez. Etomidate 30mg given IV push per Dr Rodriguez, Levo then decreased to 10mcg/min per Rodriguez, Shaggy 50mg given IV push per Rodriguez. 0548- Pt intubated by Dr rodriguez. 7.5 ETT 21 cm at the lip, color change noted, bilateral breath sounds auscultated. 89/50, RR 24, O2 100% HR 97 0549- 20G IV placed to right hand by Greg Mackenzie RN 0551- Propofol started at 5mcg/kg/min per Rodriguez. 0554- 16Fr OG placed @55cm by Mariia Can RN, and 16Fr temp sensing garcia catheter placed by Mahendra Jimenez RN. 0557- FSBS 84 0559- Levophed @14 mcg/min 0606 R Radial art line placed by Rodriguez 0614 Levophed @12 mcg/min 0627- R fem triple lumen deep line placed by MD Rodriguez. 0630- 25G D50 admin 0633- KUB taken. @around 0650 ETT was advanced 2 cm by RT. Original Note: 0500 fsbs 101 0510- rectal temp 99.[address]. notified him of pts RR 44, O2 sat 76%. Pt working very hard to breathe on NRB. reports have ER doc come to room to intubate and then get pt to CT for PE CTA 0523- son to bedside. agrees with intubation 0526- called ED for Dr Rodriguez to come to room for intubation.
[2024-01-19 05:30] LABS: ABG HCO3 9.5 mmhg (22.0-26.0); ABG Oxygen Saturation 99 % (90-100); ABG PCO2 20.1 mmhg (35.0-45.0); ABG PH 7.29 mmol/L (7.35-7.45); ABG PO2 162.9 mmhg (80-100); ABG TCO2 10.2 mmhg (23-27)
[2024-01-19] MEDS: LACTATED RINGERS 1000ML 1,000 ML 999 ML IV (05:30)
[2024-01-19] MEDS: SODIUM BICARB 8.4% 50ML SYRINGE (CRASH CART) 50 MEQ IV (05:39)
[2024-01-19] MEDS: ETOMIDATE 40MG/20ML VIAL 30 MG IV (05:47)
[2024-01-19] MEDS: ROCURONIUM BROMIDE 50MG/5ML VIAL 50 MG IV (05:47)
--- NOTE | 2024-01-19 05:52 | XR_ITS ---
PROCEDURE INFORMATION: Exam: XR Chest Exam date and time: 01/19/2024 6:32 AM Age: 83 years old Clinical indication: Device placement; Other: Og tube; Additional info: Ett og placement verification. TECHNIQUE: Imaging protocol: Radiologic exam of the chest. Views: 1 view. COMPARISON: CR XR CHEST PORTABLE 01/19/2024 4:28 AM FINDINGS: Tubes, catheters and devices: NG tube is noted to the level of the mid gastric segment with the tip excluded from field of view. Lungs: The endotracheal tube tip is 5.1 cm above the denise. Developing atelectasis with bronchograms medial left lung base. Interval development of mild discoid atelectasis of the left lung base. Unchanged subtle airspace of the right lung base. Slight increased thickening of the minor fissure. Pulmonary vascular congestion. Pleural spaces: Blunting of the left costophrenic angle suggestive for a small left pleural effusion. Subtle lucency of the left pulmonary apex, likely artifactual lucency rather than trace left apical pneumothorax. Heart/Mediastinum: No cardiomegaly. Atherosclerotic calcification of the thoracic aorta. Bones/joints: Degenerative change thoracic spine. IMPRESSION: 1. Subtle lucency of the left pulmonary apex, likely artifactual lucency rather than trace left apical pneumothorax. Repeat chest film is recommended. 2. The endotracheal tube tip is 5.1 cm above the denise. 3. Developing consolidation of the medial left lung base, potential retrocardiac atelectasis or infection. Developing mild left lung base discoid atelectasis. Unchanged subtle airspace disease of the right lung base. 4. Interval slight increased thickening of the minor fissure. Pulmonary vascular congestion. 5. NG tube appears satisfactory in position.
--- NOTE | 2024-01-19 06:02 | ECG_ITS ---
APPROVED REPORT Exam: Resting ECG HR:110 bpm ECG Measurements Heart Rate 110 AXES QRSd 105 QRS 67 QT 322 T 58 QTc 387 Conclusion ATRIAL FLUTTER/TACHYCARDIA WITH RAPID VENTRICULAR RESPONSE NONSPECIFIC T-WAVE ABNORMALITY ABNORMAL RHYTHM ECG UNCONFIRMED REPORT Electronically signed by : Dakota Beebe MD 01/20/2024 08:47:06
--- NOTE | 2024-01-19 06:43 | P.EN_ITS ---
At 05 I was called upstairs to evaluate and treat Ms. Mari Carmichael, an 83-year-old female initially admitted to the hospital last night for SHAUN, diarrhea, for possible intubation. Upon arriving at bedside, patient was clearly in respiratory distress, mottled throughout, tachypneic, mildly diminished breath sounds throughout but no wheezes, rhonchi, or rales. Labs were reviewed briefly at bedside demonstrating patient still had kidney dysfunction and worsening lactic acidosis. No hyperkalemia. Patient was intermittently hypotensive and tachycardic. Patient knew what was going on and was oriented, she consented to intubation. She was receiving fluid bolus and I asked for this to be pressure bagged to the patient. Her blood pressure started to improve but continued to be tenuous so norepinephrine was started. Patient was on nonrebreather and saturating in the 80s. We attempted to bag her to improve her oxygenation while she was awake but she did not tolerate this and desaturated so she was placed back on nonrebreather. The best pulse ox we could obtain was in the 80s, with norepinephrine patient's blood pressure was improved prior to intubation. Her tenuous respiratory status necessitated emergent intervention with intubation to protect her airway and improve oxygenation. She was acidotic with pH 7.2 prior to intubation. Elevated lactic and hypocarbia. Due to patient's kidney dysfunction and risk of hyperkalemia, patient was intubated with etomidate for sedation and rocuronium for paralytic instead of succinylcholine. Patient was intubated using a MAC 3 video-assisted laryngoscopy with first-pass attempt, grade 2 view. 7.5 endotracheal tube was successfully placed at 21 cm at the gumline with positive color change and bilateral breath sounds present. Her oxygenation improved with this. Her blood pressure tolerated these interventions and we were able to decrease the norepinephrine with a goal of MAP 65. I quickly performed bedside ultrasound of the lungs and heart, see procedure notes below. Limited lung ultrasound A focused ultrasound exam of the pleural spaces was performed to evaluate for pneumothorax, pulmonary edema, pleural effusion and/or consolidation. The ultrasound was performed with the following indications, as noted in the H&P: Hypoxia Identified structures: Bilateral thoracic cavities were examined. Findings: Lung sliding: -Present bilaterally B-lines: Present in anterior and lateral hobson bilaterally Pleural effusion: Not appreciated Consolidation: Not appreciated Impression: - Pneumothorax none - Pleural effusion none appreciated - B-lines present bilaterally - Consolidation not appreciated Images were saved to permanent archive The study was technically adequate CPT 64632-89 This study was performed by de, and I personally interpreted all images/videos. Based on my clinical judgement, these images were adequate and did not necessitate further imaging. Limited Cardiac Ultrasound Indication: Hypoxia, hypotension, mottling Identified cardiac views: [-Cardiac parasternal long axis] [-Cardiac parasternal short axis] [-Cardiac apical four-chamber] Findings: Cardiac activity present however there is severe wall motion abnormality globally of the left ventricle. No pericardial effusion, no obvious right heart strain, RV to LV ratio less than 1 Impression: -Severe global wall motion abnormality of the left ventricle without pericardial effusion or obvious right heart strain Images were saved to permanent archive The study was technically adequate CPT: 48113 This study was performed by de, and I personally interpreted all images/videos. Based on my clinical judgement, these images were adequate and did not necessitate further imaging. Patient had unreliable blood pressure cuff readings and we were attempting to titrate vasopressors, so I placed a right radial arterial line for serial ABG and blood pressure monitoring. Details of arterial line procedure: Site: Right radial Indication: Blood pressure monitoring and serial ABGs Consent: Emergent situation Skin cleansed with chlorhexidine. 20-gauge right radial A-line placed using S eldinger technique under ultrasound guidance. Arterial line successfully placed on first attempt. Waveform confirmed. Line sutured into place and Tegaderm applied. Patient tolerated procedure well with no changes in distal perfusion. No complications. Due to patient having multiple drips and need for continued critical care and additional IV access to be able to continue administering medications, I elected to place an emergent right femoral central line. Details of central line procedure: Site: Right femoral Indication: Hemodynamic instability, need for additional IV access Consent: Emergent situation Skin cleansed with chlorhexidine, sterile gloves were used however procedure was not done under fully sterile conditions due to the emergent nature of the procedure. 7 Upper Sorbian triple-lumen central line, 20 cm in length, was placed using Seldinger technique under ultrasound guidance. First attempt success. All ports draw and flush. Line sutured into place, Biopatch applied, Tegaderm applied. Patient tolerated procedure well and was vascularly intact post procedure. No complications. ECG was performed while I was doing these procedures. I personally interpreted this ECG at bedside which demonstrates possible atrial flutter versus sinus tachycardia, rate 110, normal axis, normal QTc, compared to earlier ECGs, there are no obvious ischemic changes, however the inferior leads appear different than they did on patient's initial ECG around 7:45 PM on January 17 in the ER. No obvious reciprocal changes, or cannot confirm STEMI, however artifact complicates interpretation. Repeat ECG is indicated. Troponin undetectable less than 0.01. CXR personally interpreted demonstrates endotracheal tube at the collarbones, I asked for this to be advanced 2 cm. OG appears to terminate distal to the inferior edge of this x-ray, there is no dense lobar consolidation however there are parenchymal changes throughout consistent with edema. Radiology read pending. Patient has stabilized significantly and her blood pressure, heart rate, and oxygenation are improved. I do not believe additional interventions from me are indicated at this time. Dr. Lane is at bedside and placing orders including cardiology consult with which I agree. On 01/19/2024, the high probability of a clinically significant, sudden or life threatening deterioration of the following system(s) (cardiac, respiratory) required my full and direct attention, intervention and personal management. The time I documented below (35 minutes) is in addition to time spent performing reported procedures but includes the following listed in this critical care notation. [id number] I received a phone call from [facility] that the chest x-ray potentially demonstrates a faint apical lucency, they recommended repeat chest x-ray for rule out pneumothorax. I called Dr. Lane and discussed this with him. I also discussed patient's EKG changes as documented above. He stated he has cardiology consulted and patient's respiratory status and vitals have continued to be stable. He appreciated the call and will reevaluate the patient for pneumothorax.
[2024-01-19] MEDS: AZITHROMYCIN 500 MG in 0.9 % SODIUM CHLORIDE 250 ML 250 MG IV (06:50)
--- NOTE | 2024-01-19 07:14 | CA_ITS ---
APPROVED REPORT EXAM: Comprehensive 2D, Doppler, and color-flow Echocardiogram Music Specialist: Lyndsay Angel RVT Ht: 5 ft 1 in Wt: 150lbs BSA: 1.67 BP: 128/61 mmHg Indications: A-FIB,HTN,HLD,EDEMA,EX SMOKER,PT INTUBATED FLAT ON BACK 2D Dimensions IVSd 0.87 cm F: 0.6-1.0 LA Volume 92.20 mL PWd 0.89 cm F: 0.6 - 1.0 LA Volume Index 55.21 mL/m2 (M/F) 16-34 LVDd 4.05 cm F: 3.9 - 5.3 M-Mode Dimensions RVDd 2.43 cm (0.9-2.6) LA Diam 4.48 cm (1.9-4.0) LVDd 4.58 cm (3.5-5.7) LVDs 2.99 cm (3.5-5.7) IVSd 0.74 cm (0.6-1.1) PWd 0.51 cm (0.6-1.1) EF (Teich) 64.00% FS 34.70% EDV (Teich) 96.30 mL TAPSE 1.98 (<1.7) ESV (Teich) 34.70 mL LV Diastology E Decel Time 150 (160-240 msec) E/A Ratio 0.9 Aortic Valve DARRIUS Index 1.43 cm2/m2 AoV Peak Billy. 127.0 (50-130 cm/s) AO Peak GR. 6.40 mmHg AO Mean GR. 3.50 (<5 mmHg) AO VTI 20.5 (18-25 cm) DARRIUS (VTI) 2.44 (2.5-4.5 cm2) Mitral Valve MV E Max Billy. 90.0 (40-130 cm/s) MV A Velocity 97.0 (40-130 cm/s) E/A Ratio 0.93 MV PHT 44.0 ms Pulmonary Valve PV Peak Velocity 89.0 (50-150 cm/s) Tricuspid Valve TR P. Velocity 255.00 cm/s RAP Estimate 10.00 mmHg RVSP 36.00 mmHg Left Ventricle The left ventricle is normal size. Left ventricular systolic function is mildly decreased. There is increased LV wall thickness. There is mild global hypokinesis present. Grade 1 diastolic dysfunction. LVEF is 45%. Right Ventricle Right ventricle is mild to moderately dilated. Right ventricle is mildly hypokinetic. Atria Left atrium is severely dilated. Right atrium is mildly dilated. There is no Doppler evidence of interatrial shunt. Aortic Valve Aortic valve is mildly thickened. No hemodynamically significant aortic stenosis is present. Trace aortic regurgitation. Mitral Valve Mild mitral annular calcification. The mitral valve leaflets are mildly thickened. No evidence of mitral valve stenosis. Mild mitral regurgitation. Tricuspid Valve Tricuspid valve is grossly normal in structure and function. Mild tricuspid regurgitation. RVSP is 22 mmHg + RA pressure. Pulmonic Valve The pulmonary valve is normal in structure. Trace pulmonic regurgitation. Great Vessels The aortic root is normal in size. The ascending aorta is not well-visualized. The IVC is dilated in the setting of mechanical ventilation. Pericardium There is no pericardial effusion. Other Information Study Quality: Fair Conclusion Mildly reduced LV systolic function (LVEF 45%). Mild to moderate RV dilation with mild reduction in RV function. Severe LA dilation. Mild RA dilation. Mild MR, mild TR. RVSP is 22 mmHg + RA pressure. Electronically signed by : Brittny Frankel MD 01/19/2024 12:04:18
--- NOTE | 2024-01-19 07:30 | P.EN_ITS ---
Documented by User: Brett Pineda, [employer] 01/19/24 07:48 This note is for a rapid response, for patient just recently admitted from the ER Ms. Carmichael. She had come to the emergency room mainly for GI upset and diarrhea for a couple of days. She was admitted to Dr. Lane also noting a UTI and slight changes on chest x- ray., Nurse from the room called me to see the patient. Her blood sugar I believe was in the 40s as the amount that they gave me. They were asked me what to do half amp of D50 was given IV. Patient was kind of obtunded but she would look at me but not really responding also mottled from really the neck down. Patient was placed in the bed placed up on oxygen she did start to respond a little bit better blood sugar came up to 60 and then up to 90. Oxygen saturation continued to be low and adjusted oxygen to bring that up patient became more responsive and color of skin improved.. Noting that the patient had a UTI had not been covered yet by antibiotics Rocephin was added, but patient's respiratory rate continued to be above 30 and at x 40. Breathing treatment was ordered ordered chest x-ray EKG which showed A-fib on arrival the 1 that I saw she was in normal sinus troponins were ordered and then adjusted the patient and transferred to an ICU room. Placed upon monitor, venous blood gases arterial blood gases were done that could not correct the acid-base discrepancy, and patient was beginning to peter out respiratory gunter not able to keep up with her needs. BiPAP was not an option son was also in the hospital at that time updated him on my concerns ER doctor called and patient has been intubated. Please note that the patient was alert and oriented with the ER doctor talking to her that she knew she was going to be placed on the ventilator and gave thumbs up. Her primary care doctor was called when this was started and he did arrive at the hospital sometime between 530 and 6 in the morning.. After first taking care of the patient in her original room and feeling that she was improved and getting much stable but still need to be in ICU was transferred. Able to look at labs white count was normal did some venous blood gases which did show decreased CO2 and at 1 time and oxygen saturation concentration of only 30 this did improve after breathing treatment and changing oxygen settings. Also noting slightly elevated PT/INR labs. There is an acute kidney injury with BUN 65 creatinine 2.40 her GFR estimated at 19. Slight liver function increase also noted on scan she has an enlarged distended gallbladder with a large stone., When the patient was first checked her rectal temperature was 96 she was placed on a Apoorva hugger and proceeded to warm after starting fluids giving a IV bolus of 500 of LR patient became less mottled temperature did improve to 99. Once again after noting to bring in her into the ICU patient did stabilize for a bit color of skin did improve she was alert oriented able to talk to me but then quickly started to decompensate on her respiratory status., Prior to this Rocephin was started for the UTI that was noted in her initial workup. And due to the potential of atypical pneumonia started azithromycin IV. Able to talk to her son he said the main thing was is that she just started with his terrible diarrhea with some nausea after the . She was around children who were noted to have upper respiratory infection type symptoms. Once again noting the ER doctor was in the room the patient has been intubated pressures were used patient was placed on the ventilator patient's primary care doctor is also at bedside, time before being able to hand the patient off to his her primary care and to the ER physician was approximately 2 hours of critical care time Documented by User: Thien King MD 01/19/24 08:19 This note is for a rapid response, for patient just recently admitted from the ER Ms. Carmichael. She had come to the emergency room mainly for GI upset and diarrhea for a couple of days. She was admitted to Dr. Lane also noting a UTI and slight changes on chest x- ray., Nurse from the room called me to see the patient. Her blood sugar I believe was in the 40s as the amount that they gave me. They were asked me what to do half amp of D50 was given IV. Patient was kind of obtunded but she would look at me but not really responding also mottled from really the neck down. Patient was placed in the bed placed up on oxygen she did start to respond a little bit better blood sugar came up to 60 and then up to 90. Oxygen saturation continued to be low and adjusted oxygen to bring that up patient became more responsive and color of skin improved.. Noting that the patient had a UTI had not been covered yet by antibiotics Rocephin was added, but patient's respiratory rate continued to be above 30 and at x 40. Breathing treatment was ordered ordered chest x-ray EKG which showed A-fib on arrival the 1 that I saw she was in normal sinus troponins were ordered and then adjusted the patient and transferred to an ICU room. Placed upon monitor, venous blood gases arterial blood gases were done that could not correct the acid-base discrepancy, and patient was beginning to peter out respiratory gunter not able to keep up with her needs. BiPAP was not an option son was also in the hospital at that time updated him on my concerns ER doctor called and patient has been intubated. Please note that the patient was alert and oriented with the ER doctor talking to her that she knew she was going to be placed on the ventilator and gave thumbs up. Her primary care doctor was called when this was started and he did arrive at the hospital sometime between 530 and 6 in the morning.. After first taking care of the patient in her original room and feeling that she was improved and getting much stable but still need to be in ICU was transferred. Able to look at labs white count was normal did some venous blood gases which did show decreased CO2 and at 1 time and oxygen saturation concentration of only 30 this did improve after breathing treatment and changing oxygen settings. Also noting slightly elevated PT/INR labs. There is an acute kidney injury with BUN 65 creatinine 2.40 her GFR estimated at 19. Slight liver function increase also noted on scan she has an enlarged distended gallbladder with a large stone., When the patient was first checked her rectal temperature was 96 she was placed on a Apoorva hugger and proceeded to warm after starting fluids giving a IV bolus of 500 of LR patient became less mottled temperature did improve to 99. Once again after noting to bring in her into the ICU patient did stabilize for a bit color of skin did improve she was alert oriented able to talk to me but then quickly started to decompensate on her respiratory status., Prior to this Rocephin was started for the UTI that was noted in her initial workup. And due to the potential of atypical pneumonia started azithromycin IV. Able to talk to her son he said the main thing was is that she just started with his terrible diarrhea with some nausea after the hol. She was around children who were noted to have upper respiratory infection type symptoms. Once again noting the ER doctor was in the room the patient has been intubated pressures were used patient was placed on the ventilator patient's primary care doctor is also at bedside, time before being able to hand the patient off to his her primary care and to the ER physician was approximately 2 hours of critical care time
--- NOTE | 2024-01-19 07:30 | EXP.HP ---
History of Present Illness *Admission Date: 02/18/24 *Reason for visit:: leg pain, diarrhea, SHAUN *History of present illness: This 83-year-old female presented to the [facility] emergency department with c/o abdominal pain, nausea, and diarrhea for the last 2 days. She was actually seen in ER 01/15 with c/o leg pain and swelling, more right than left. Subsequently she developed the diarrhea, with multiple dark and watery stools and abdominal pain. She denied definitive hematochezia, melena or hematemesis. She denied fever, chills, chest pain, or shortness of breath. She denied urinary type symptomatology, and denied any vomiting. Patient has been taking loperamide with little to no relief of diarrhea. She denied any recent antibiotic use. Since her 01/15 ER visit she has been taking p.o. oxycodone but has only taken this medication twice with improvement in leg pain. Other past medical history consistent with GERD/Garnica's esophagus,. She is a former smoker. She has atrial fibrillation and is on anticoagulation therapy with Eliquis. She has chronic lymphedema, hyperlipidemia, osteoarthritis, hypothyroidism, and hypertension. She was admitted with diarrhea and with SHAUN: BUN=66/ creat=2.5/ GFR=18. Lactic acid was elevated. At 4:00 AM the patient started to decompensate. BS was found to be 41 (no hx of diabetes or diabetic medication). D50 was given but the patient developed hypotension and shortness of breath. Rapid Response was initiated with the patient receiving immediate attention from ER MD, Dr. Eileen Rodriguez. who intubated the patient, placed a femoral deep line and an arterial line. See Dr. Rodriguez's detailed note. Dr. Lane was also present at bedside. Blood gases showed the patient acidotic at 7.2, with subsequnt post intubation gas at 7.23. Dr. Rodriguez was concerned about cardiac function on bedside US evaluation. EKG showed A-fib. Troponins are normal. CT of the chest for PE, and for head are pending. [facility] Disclaimer: The information contained in this section may have been updated after the patient was seen, as this information can be updated by other users. Medical History (Updated 01/19/24 @ 08:[address] MD) Diarrhea (~01/19/24) Collapse GERD (gastroesophageal reflux disease) Surgical History History of esophagogastroduodenoscopy (EGD) History of hysterectomy History of colonoscopy Family History Other Family history of diabetes mellitus type II Family history of hypothyroidism Social History (Updated 01/19/24 @ 00:44 by Mahi Russell RN) Smoking Status: Never smoker second hand exposure: No alcohol intake: never substance use type: denies use current occupational status: retired Travel in the last 8 weeks: None household members: spouse housing: house current occupational exposures/hazards: No caffeine: Yes Other Medical History Have you received the Flu Vaccine for this season: Yes Have you received the Pneumonia Vaccine: Yes Review of Systems Review of Systems Review of systems:: unable to obtain (due to patient sedated and intubated.) *Cardiovascular Cardiovascular: Denies dyspnea *Respiratory Respiratory: Denies dyspnea *Gastrointestinal Gastrointestinal: Reports as per HPI *Genitourinary Genitourinary: Denies difficulty voiding *Musculoskeletal Musculoskeletal: Reports back pain (leg pain) Meds Home Medications and Allergies Home Medications ?Medication ?Instructions ?Recorded ?Confirmed ?Type atorvastatin 20 mg tablet 20 mg PO HS Cholesterol 09/22/17 12/04/23 History dicyclomine 10 mg capsule 10 mg PO BID abdominal pain 09/22/17 12/04/23 History lisinopril 20 mg tablet 20 mg PO HS bp 09/22/17 12/04/23 History multivitamin (Daily Multi-Vitamin 1 tab PO QAM Supplement 09/22/17 12/04/23 History tablet) omega-3 fatty acids 1,000 mg 1,000 mg PO ONCE Supplement 09/22/17 12/04/23 History capsule (Fish Oil Concentrate) calcium 200 mg (as 1 each PO BID Supplement 10/13/17 12/04/23 History citrate)-vitamin D3 6.25 mcg (250 unit) tablet furosemide 20 mg tablet 20 mg PO Q OTHER DAY Fluid 12/02/19 12/04/23 History alendronate 70 mg tablet 70 mg PO WEEKLY bone density 03/16/20 12/04/23 History verapamil 240 mg tablet,extended 240 mg PO DAILY 03/30/21 12/04/23 History release lansoprazole 30 mg capsule,delayed 30 mg PO DAILY BP #30 caps 08/10/21 12/04/23 Rx release levothyroxine 25 mcg tablet 25 mcg PO DAILY 09/21/21 12/04/23 History pantoprazole 40 mg tablet,delayed 40 mg PO DAILY #90 tabs 10/13/23 12/04/23 Rx release apixaban 5 mg tablet (Eliquis) See Rx Instructions .Route 01/12/24 Rx .COMPLEX #180 tabs diclofenac sodium 75 mg See Rx Instructions .Route 01/12/24 Rx tablet,delayed release .COMPLEX #90 tabs oxycodone 5 mg tablet 5 mg PO Q8H PRN pain #9 tabs 01/16/24 Rx New Prescriptions to Start Prescriptions: Allergies Allergy/AdvReac Type Severity Reaction Status Date / Time No Known Allergies Allergy Verified 12/04/23 09:57 Exam Data for Last 24 hours Vital signs and Labs for Last 24 Hours: Temp Pulse Resp BP Pulse Ox O2 Del Method FiO2 98.4 F 88 18 128/61 98 Mechanical Ventilation 60 01/19/24 00:00 01/19/24 04:35 01/19/24 06:50 01/19/24 00:00 01/19/24 06:50 01/19/24 06:50 01/19/24 06:50 Laboratory Results - last 24 hr 01/18/24 21:00: WBC 4.5 L, RBC 4.17 L, Hgb 13.5, Hct 41.2, MCV 98.7, MCH 32.3 H, MCHC 32.7, RDW 14.3, Plt Count 230, MPV 9.1, Neut % (Auto) 91.4 H, Lymph % (Auto) 6.1 L, [place] % (Auto) 1.6 L, Eos % (Auto) 0.2, Baso % (Auto) 0.7, Neut # (Auto) 4.1, Lymph # (Auto) 0.3 L, [place] # (Auto) 0.1, Eos # (Auto) 0.0, Baso # (Auto) 0.0, Total Counted 100, Neutrophils % (Manual) 82 H, Lymphocytes % (Manual) 10, Monocytes % (Manual) 8, Platelet Estimate Normal, Poikilocytosis 2+, Target Cells 2+, [place] Cells 2+, Schistocytes 1+, Sodium 133 L, Potassium 4.5, Chloride 105, Carbon Dioxide 12 L, Anion Gap 20.5 H, BUN 66 H, Creatinine 2.50 H, Estimated Creat Clear 19, Estimated GFR 18 L*, Est GFR ( Amer) 22 L, Glucose 61 L, Lactate 4.5 H, Calcium 9.7, Magnesium 2.4 H, Total Bilirubin 0.7, AST 89 H, ALT 40, Alkaline Phosphatase 153 H, Total Protein 6.3, Albumin 3.2 L, Globulin 3.1, Albumin/Globulin Ratio 1.0 L, Lipase 58, HIV 1&2 Antibody Rapid Nonreactive 01/19/24 01:20: Lactate 5.0 H 01/19/24 03:00: Urine Color Yellow, Urine Appearance Clear, Urine pH 5.0, Ur Specific [place] >= 1.030, Urine Protein Trace, Urine Glucose (UA) Negative, Urine Ketones Trace, Urine Blood 3+ A, Urine Nitrate Positive A, Urine Bilirubin 1+ A, Urine Urobilinogen 1.0, Ur Leukocyte Esterase 2+ A, Urine RBC 5-10, Urine WBC 50-100, Ur Squamous Epith Cells 20-50, Amorphous Sediment 2+, Urine Bacteria 2+, Hyaline Casts 3-5 01/19/24 04:00: WBC 6.4 D, RBC 3.92 L, Hgb 12.4, Hct 38.9, MCV 99.2 H, MCH 31.6 H, MCHC 31.9, RDW 14.7, Plt Count 192, MPV 10.4, Neut % (Auto) 90.8 H, Lymph % (Auto) 6.5 L, [place] % (Auto) 1.9, Eos % (Auto) 0.2, Baso % (Auto) 0.6, Neut # (Auto) 5.8, Lymph # (Auto) 0.4 L, [place] # (Auto) 0.1, Eos # (Auto) 0.0, Baso # (Auto) 0.0, PT 15.4 H, INR 1.42 H, APTT 40.7 H 01/19/24 04:13: VBG pH 7.21 L, VBG pCO2 30.1 L, VBG pO2 35.9, VBG HCO3 11.7 L, VBG Total CO2 12.7 L, VBG O2 Saturation 66.9, VBG Base Excess -16.2 L, VBG Lactic Acid 6.7 H 01/19/24 04:20: Sodium 135 L, Potassium 4.2, Chloride 107, Carbon Dioxide 10 L D, Anion Gap 22.2 H, BUN 65 H, Creatinine 2.40 H, Estimated Creat Clear 19, Estimated GFR 19 L*, Est GFR ( Amer) 23 L, Glucose 146 H D, Lactate 5.7 H, Calcium 9.2, Total Bilirubin 0.8, AST 122 H D, ALT 50, Alkaline Phosphatase 185 H, Troponin I < 0.01, Total Protein 5.8 L, Albumin 2.8 L D, Globulin 3.0, Albumin/Globulin Ratio 0.9 L 01/19/24 05:28: ABG pH 7.29 L, ABG pCO2 20.1 L, ABG pO2 162.9 H, ABG HCO3 9.5 L, ABG Total CO2 10.2 L, ABG O2 Saturation 99, ABG Base Excess -17.0 L I & O for Last 24 hours: Intake & Output 01/16/24 01/17/24 01/18/24 01/19/24 11:59 11:59 11:59 11:59 Output Total 0 / 0 Balance 0 / 0 Weight 150 lb 0.005 oz Constitutional Constitutional: obese Comments: Sedated and intubated. Her vital signs are stable at the time of exam, but mottling of the skin is noted. *Routine HEENT Exam Head: Present normocephalic Eye: Present PERRL ENT: Present mucous membranes moist *Routine Neck Exam Neck: Present trachea midline *Routine Respiratory Exam Respiratory: Present patient mechanically ventilated *Routine Cardiovascular Exam Cardiovascular: Present irregular rhythm (atrial fib, rate 108) *Routine Abdominal Exam Abdominal: Present obese; Absent mass *Routine Rectal Exam Rectal:: deferred *Routine Genitalia Exam Genitalia:: normal female Comment:: [place] *Routine Extremities Exam Extremities: Present cyanosis, edema and normal capillary refill (toes are pink, warm) *Routine Skin Exam Skin: Present cyanosis (mottling of the abdomen and legs. Eccymoses of the arms) *Routine Neurological Exam Comments: Sedated and intubated Assessment and Plan *Assessment and plan (1) Collapse: Status: Acute Category: Medical Code(s): R55 - Syncope and collapse (2) SHAUN (acute kidney injury): Status: Acute Category: Medical Code(s): N17.9 - Acute kidney failure, unspecified (3) Diarrhea: Status: Acute Category: Medical Code(s): R19.7 - Diarrhea, unspecified (4) Lymphedema: Status: Acute Category: Medical Code(s): I89.0 - Lymphedema, not elsewhere classified (5) Hypertension: Status: Acute Qualifiers: Hypertension type: unspecified Qualified Code(s): I10 - Essential (primary) hypertension Category: Medical Code(s): I10 - Essential (primary) hypertension (6) Hyperlipidemia: Status: Acute Qualifiers: Hyperlipidemia type: mixed hyperlipidemia Qualified Code(s): E78.2 - Mixed hyperlipidemia Category: Medical Code(s): E78.5 - Hyperlipidemia, unspecified (7) Ex-smoker for more than 1 year: Status: Acute Category: Social Hx Code(s): Z87.891 - Personal history of nicotine dependence (8) GERD (gastroesophageal reflux disease): Status: Acute Category: Medical Code(s): K21.9 - Gastro-esophageal reflux disease without esophagitis (9) Leg pain, right: Status: Acute Category: Medical Code(s): M79.604 - Pain in right leg (10) Gallstone: Status: Acute Category: Medical Code(s): K80.20 - Calculus of gallbladder without cholecystitis without obstruction Plan The patient is intubated and on ventilator. CT scan of the chest for PE and CT of the head are pending. Blood pressure has improved on norepinephrine and this is being decreased. She is receiving antibiotics but these may be changed. Cardiology is consulted. Dr. Lane has spoken with the patient's son regarding her status.
[2024-01-19 07:36] LABS: ABG Base Excess -14.3 mmol/L (-2.4-2.3); ABG HCO3 11.8 mmhg (22.0-26.0); ABG Oxygen Saturation 99 % (90-100); ABG PCO2 28.5 mmhg (35.0-45.0); ABG PH 7.23 mmol/L (7.35-7.45); ABG PO2 265.9 mmhg (80-100); ABG TCO2 12.7 mmhg (23-27)
[2024-01-19 07:37] LABS: Allen's Test Patient Unable; Oxygen 100% %
[2024-01-19 08:09] LABS: POC Glucose,Bedside 68 (70-110)
[2024-01-19 08:09] LABS: POC Glucose,Bedside 101 (70-110)
[2024-01-19 08:09] LABS: POC Glucose,Bedside 102 (70-110)
[2024-01-19 08:09] LABS: POC Glucose,Bedside 84 (70-110)
[2024-01-19 08:09] LABS: POC Glucose,Bedside 108 (70-110)
[2024-01-19 08:09] LABS: POC Glucose,Bedside 92 (70-110)
[2024-01-19 08:09] LABS: POC Glucose,Bedside 90 (70-110)
[2024-01-19 08:09] LABS: POC Glucose,Bedside 101 (70-110)
[2024-01-19] MEDS: NOREPINEPHRINE BITARTRATE/D5W 8 MG/250 ML PLAST..BAG 56.25 MG IV (08:10)
[2024-01-19] MEDS: propofoL 100 ML 2.04 MG IV (08:14)
[2024-01-19] MEDS: DEXTROSE 50% 50ML SYRINGE (CRASH CART) 50 ML IVP (08:22)
--- NOTE | 2024-01-19 08:26 | CT_ITS ---
FINAL REPORT TECHNIQUE: Axial imaging of the head was obtained without contrast. This study was performed with techniques to keep radiation doses as low as reasonably achievable, (ALARA). Individualized dose reduction techniques using automated exposure control or adjustment of mA and/or kV according to the patient''s size were employed. CLINICAL HISTORY: Sudden decompensation resulting assisted ventilati FINDINGS: The ventricles are normal in size. There is no evidence of hemorrhage. No masses are identified. No extra-axial fluid is seen. The sinuses are normal. There is no acute osseous abnormality. IMPRESSION: No acute intracranial abnormality. Reviewed, Interpreted and Dictated by Edwin Rincon III, MD Transcribed by Phoebe Bland Authenticated and [facility]
[2024-01-19] MEDS: ERTAPENEM SODIUM 0.5 GM in 0.9 % SODIUM CHLORIDE 50 ML IV (08:28)
--- NOTE | 2024-01-19 08:45 | PC.NURSE ---
Levophed drip titrations: 0715 2mcg 117/54 (79) 0736 4 mcg 90/48 (57) 0749 86/45 (55)
[2024-01-19 08:49] LABS: Adenovirus,PCR Not Detected (NotDetected); Bordetella Pertussis Not Detected (NotDetected); Chlamydophila Pneumoniae, PCR Not Detected (NotDetected); Coronavirus 19, PCR Not Detected (NotDetected); Coronavirus 229E Not Detected (NotDetected); Coronavirus NL63 Not Detected (NotDetected); Coronavirus OC43 Not Detected (NotDetected); Coronovirus HKU1,PCR Not Detected (NotDetected); Human Metapneumovirus Not Detected (NotDetected); Influenza A, PCR Not Detected (NotDetected); Influenza AH1, 2009 Not Detected (NotDetected); Influenza AH1, PCR Not Detected (NotDetected); Influenza AH3,PCR Not Detected (NotDetected); Influenza B, PCR Not Detected (NotDetected); Mycoplasma Pneumoniae, PCR Not Detected (NotDetected); Parainfluenza 1, PCR Not Detected (NotDetected); Parainfluenza 2, PCR Not Detected (NotDetected); Parainfluenza 3, PCR Not Detected (NotDetected); Parainfluenza 4, PCR Not Detected (NotDetected); Respiratory Syncytial Virus Not Detected (NotDetected)
--- NOTE | 2024-01-19 08:51 | CT_ITS ---
FINAL REPORT TECHNIQUE: Axial imaging of the chest was obtained without contrast. Reformatted images were also obtained and reviewed.This study was performed with techniques to keep radiation doses as low as reasonably achievable, (ALARA). Individualized dose reduction technique using automated exposure control or adjustment of mA and/or kV according to the patient's size were employed. CLINICAL HISTORY: respiratory distress pt intubated FINDINGS: There is an ET tube and NG tube in place. There is no pneumothorax. There is no axillary adenopathy. There is no hilar or mediastinal mass or adenopathy. Heart size is normal. There is no pericardial effusion. Limited images of the upper abdomen demonstrate a partially imaged, presumed cyst in the upper pole of the right kidney. There are bilateral lower lobe opacities favored represent atelectasis over pneumonia. Small pleural effusions are also seen. IMPRESSION: Bilateral lower lobe opacities, favor atelectasis over pneumonia. Small pleural effusions. Reviewed, Interpreted and Dictated by Edwin Rincon III, MD Transcribed by Phoebe Bland Authenticated and [facility]
--- NOTE | 2024-01-19 09:23 | HMH.PHAINT1 ---
Pharmacy Intervention Comments: HOME MEDICATIONS VERIFIED VIA OUTPATIENT PHARMACY
--- NOTE | 2024-01-19 09:46 | P.CONS_ITS ---
History of Present Illness History of present illness: Patient intubated and sedated. Much of the history is obtained from chart review and patient family Ms. Carmichael is a 83-year-old female presented with abdominal discomfort diarrhea nausea vomiting, noted to have progressive worsening respiratory distress needing intubation and mechanical ventilatory support and pulmonary was called for further evaluation and management. Patient has been experiencing diarrhea and decreased p.o. intake for the last 3 to 4 days prior to admission. [facility] [place] Disclaimer: The information contained in this section may have been updated after the patient was seen, as this information can be updated by other users. Medical History (Updated 01/19/24 @ 11:32 by Elias Hui MD) Acute respiratory failure with hypoxia On mechanically assisted ventilation Diarrhea (~01/19/24) Collapse GERD (gastroesophageal reflux disease) Surgical History History of esophagogastroduodenoscopy (EGD) History of hysterectomy History of colonoscopy Family History Other Family history of diabetes mellitus type II Family history of hypothyroidism Social History (Updated 01/19/24 @ 00:44 by Mahi Russell RN) Smoking Status: Never smoker second hand exposure: No alcohol intake: never substance use type: denies use current occupational status: retired Travel in the last 8 weeks: None household members: spouse housing: house current occupational exposures/hazards: No caffeine: Yes Review of Systems Review of Systems Review of systems:: unable to obtain Review of systems (narrative): Intubated and sedated Pulmonology Exam Inpatient Vital signs and Labs for Last 24 Hours: Temp Pulse Resp BP Pulse Ox O2 Del Method FiO2 99.7 F H 91 H 18 143/42 H 95 Room Air 60 01/19/24 07:54 01/19/24 09:00 01/19/24 09:00 01/19/24 09:00 01/19/24 09:00 01/19/24 09:00 01/19/24 06:50 Laboratory Results - last 24 hr 01/18/24 21:00: WBC 4.5 L, RBC 4.17 L, Hgb 13.5, Hct 41.2, MCV 98.7, MCH 32.3 H, MCHC 32.7, RDW 14.3, Plt Count 230, MPV 9.1, Neut % (Auto) 91.4 H, Lymph % (Auto) 6.1 L, Webster % (Auto) 1.6 L, Eos % (Auto) 0.2, Baso % (Auto) 0.7, Neut # (Auto) 4.1, Lymph # (Auto) 0.3 L, Webster # (Auto) 0.1, Eos # (Auto) 0.0, Baso # (Auto) 0.0, Total Counted 100, Neutrophils % (Manual) 82 H, Lymphocytes % (Manual) 10, Monocytes % (Manual) 8, Platelet Estimate Normal, Poikilocytosis 2+, Target Cells 2+, Jasbir Cells 2+, Schistocytes 1+, Sodium 133 L, Potassium 4.5, Chloride 105, Carbon Dioxide 12 L, Anion Gap 20.5 H, BUN 66 H, Creatinine 2.50 H, Estimated Creat Clear 19, Estimated GFR 18 L*, Est GFR ( Amer) 22 L, Glucose 61 L, Lactate 4.5 H, Calcium 9.7, Magnesium 2.4 H, Total Bilirubin 0.7, AST 89 H, ALT 40, Alkaline Phosphatase 153 H, Total Protein 6.3, Albumin 3.2 L, Globulin 3.1, Albumin/Globulin Ratio 1.0 L, Lipase 58, HIV 1&2 Antibody Rapid Nonreactive 01/19/24 01:20: Lactate 5.0 H 01/19/24 03:00: Urine Color Yellow, Urine Appearance Clear, Urine pH 5.0, Ur Specific [place] >= 1.030, Urine Protein Trace, Urine Glucose (UA) Negative, Urine Ketones Trace, Urine Blood 3+ A, Urine Nitrate Positive A, Urine Bilirubin 1+ A, Urine Urobilinogen 1.0, Ur Leukocyte Esterase 2+ A, Urine RBC 5-10, Urine WBC 50-100, Ur Squamous Epith Cells 20-50, Amorphous Sediment 2+, Urine Bacteria 2+, Hyaline Casts 3-5 01/19/24 03:59: POC Glucose 68 L 01/19/24 04:00: WBC 6.4 D, RBC 3.92 L, Hgb 12.4, Hct 38.9, MCV 99.2 H, MCH 31.6 H, MCHC 31.9, RDW 14.7, Plt Count 192, MPV 10.4, Neut % (Auto) 90.8 H, Lymph % (Auto) 6.5 L, Webster % (Auto) 1.9, Eos % (Auto) 0.2, Baso % (Auto) 0.6, Neut # (Auto) 5.8, Lymph # (Auto) 0.4 L, Webster # (Auto) 0.1, Eos # (Auto) 0.0, Baso # (Auto) 0.0, PT 15.4 H, INR 1.42 H, APTT 40.7 H 01/19/24 04:13: VBG pH 7.21 L, VBG pCO2 30.1 L, VBG pO2 35.9, VBG HCO3 11.7 L, V BG Total CO2 12.7 L, VBG O2 Saturation 66.9, VBG Base Excess -16.2 L, VBG Lactic Acid 6.7 H 01/19/24 04:20: Sodium 135 L, Potassium 4.2, Chloride 107, Carbon Dioxide 10 L D , Anion Gap 22.2 H, BUN 65 H, Creatinine 2.40 H, Estimated Creat Clear 19, E stimated GFR 19 L*, Est GFR ( Amer) 23 L, Glucose 146 H D, Lactate 5.7 H, Calcium 9.2, Total Bilirubin 0.8, AST 122 H D, ALT 50, Alkaline Phosphatase 185 H, Troponin I < 0.01, Total Protein 5.8 L, Albumin 2.8 L D, Globulin 3.0, A lbumin/Globulin Ratio 0.9 L 01/19/24 04:21: POC Glucose 90 01/19/24 04:45: POC Glucose 102 01/19/24 05:06: POC Glucose 101 01/19/24 05:28: ABG pH 7.29 L, ABG pCO2 20.1 L, ABG pO2 162.9 H, ABG HCO3 9.5 L, ABG Total CO2 10.2 L, ABG O2 Saturation 99, ABG Base Excess -17.0 L 01/19/24 05:41: POC Glucose 108 01/19/24 05:57: POC Glucose 84 01/19/24 06:12: Specimen Source A-line, O2 % 100%, ABG pH 7.23 L*, ABG pCO2 28.5 L, ABG pO2 265.9 H, ABG HCO3 11.8 L, ABG Total CO2 12.7 L, ABG O2 Saturation 99, ABG Base Excess -14.3 L, Merrick Test Patient unable 01/19/24 07:21: POC Glucose 101 01/19/24 08:00: POC Glucose 92 I & O for Labs for Last 24 Hours: Intake & Output 01/16/24 01/17/24 01/18/24 01/19/24 23:59 23:59 23:59 23:59 Intake Total 303.751 / 303.751 Output Total 170 / 170 Balance 133.751 / 133.751 Weight 150 lb 150 lb 0.005 oz Constitutional: Present severe distress Comment:: Intubated and Sedated Head: Present normocephalic and atraumatic Neck: Present normal inspection and trachea midline Respiratory: Present patient mechanically ventilated; Absent prolonged expiratory phase, rhonchi or wheezes Cardiac: Present S1/S2 and Tachycardia GI: Present soft; Absent distention or tenderness Skin: Present intact; Absent cyanosis Neuro: Absent alert, awake or oriented x 3 Comment:: Intubated and sedated Extremities: Present normal inspection; Absent clubbing or cyanosis Psychiatric: Present unable to assess Meds Home Medications and Allergies Home Medications ?Medication ?Instructions ?Recorded ?Confirmed ?Type atorvastatin 20 mg tablet 20 mg PO HS 09/22/17 01/19/24 History dicyclomine 10 mg capsule 10 mg PO BID 09/22/17 01/19/24 History lisinopril 20 mg tablet 20 mg PO HS 09/22/17 01/19/24 History multivitamin (Daily Multi-Vitamin 1 tab PO QAM 09/22/17 01/19/24 History tablet) calcium 200 mg (as 1 each PO BID 10/13/17 01/19/24 History citrate)-vitamin D3 6.25 mcg (250 unit) tablet furosemide 20 mg tablet 20 mg PO DAILYP PRN Edema 12/02/19 01/19/24 History alendronate 70 mg tablet 70 mg PO WEEKLY 03/16/20 01/19/24 History verapamil 240 mg tablet,extended 360 mg PO DAILY 03/30/21 01/19/24 History release levothyroxine 25 mcg tablet 25 mcg PO AM 09/21/21 01/19/24 History pantoprazole 40 mg tablet,delayed 40 mg PO DAILY #90 tabs 08/26/24 12/02/24 Rx release apixaban 5 mg tablet (Eliquis) 5 mg PO BID 01/19/24 01/19/24 History diclofenac sodium 75 mg 75 mg PO BIDP PRN Pain (Scale 01/19/24 01/19/24 History tablet,delayed release Score 7-10) omega-3 fatty acids 1,000 mg 1,000 mg PO DAILY 01/19/24 01/19/24 History capsule oxycodone 5 mg tablet 5 mg PO Q8HP PRN Pain (Scale Score 01/19/24 01/19/24 History 4-6) New Prescriptions to Start Prescriptions: Allergies Allergy/AdvReac Type Severity Reaction Status Date / Time No Known Allergies Allergy Verified 12/04/23 09:57 Results Laboratory Findings 01/19/24 04:00 01/19/24 04:20 ABG ABG pH 7.23 mmol/L (7.35-7.45) L* 01/19/24 06:12 ABG pCO2 28.5 mmhg (35.0-45.0) L 01/19/24 06:12 ABG pO2 265.9 mmhg (80-100) H 01/19/24 06:12 ABG O2 Saturation 99 % (90-100) 01/19/24 06:12 PT/INR, D-dimer PT 15.4 seconds (10.1-12.5) H 01/19/24 04:00 INR 1.42 (0.9-1.1) H 01/19/24 04:00 Abnormal lab findings: Abnormal Labs 01/18/24 01/19/24 01/19/24 21:00 01:20 03:00 WBC 4.5 L RBC 4.17 L MCV MCH 32.3 H Neut % (Auto) 91.4 H Lymph % (Auto) 6.1 L Webster % (Auto) 1.6 L Lymph # (Auto) 0.3 L Neutrophils % (Manual) 82 H PT INR APTT ABG pH ABG pCO2 ABG pO2 ABG HCO3 ABG Total CO2 ABG Base Excess VBG pH VBG pCO2 VBG HCO3 VBG Total CO2 VBG Base Excess VBG Lactic Acid Sodium 133 L Carbon Dioxide 12 L Anion Gap 20.5 H BUN 66 H Creatinine 2.50 H Estimated GFR 18 L* Est GFR ( Amer) 22 L Glucose 61 L POC Glucose Lactate 4.5 H 5.0 H Magnesium 2.4 H AST 89 H Alkaline Phosphatase 153 H Total Protein Albumin 3.2 L Albumin/Globulin Ratio 1.0 L Urine Blood 3+ A Urine Nitrate Positive A Urine Bilirubin 1+ A Ur Leukocyte Esterase 2+ A 01/19/24 01/19/24 01/19/24 03:59 04:00 04:13 WBC RBC 3.92 L MCV 99.2 H MCH 31.6 H Neut % (Auto) 90.8 H Lymph % (Auto) 6.5 L Webster % (Auto) Lymph # (Auto) 0.4 L Neutrophils % (Manual) PT 15.4 H INR 1.42 H APTT 40.7 H ABG pH ABG pCO2 ABG pO2 ABG HCO3 ABG Total CO2 ABG Base Excess VBG pH 7.21 L VBG pCO2 30.1 L VBG HCO3 11.7 L VBG Total CO2 12.7 L VBG Base Excess -16.2 L VBG Lactic Acid 6.7 H Sodium Carbon Dioxide Anion Gap BUN Creatinine Estimated GFR Est GFR ( Amer) Glucose POC Glucose 68 L Lactate Magnesium AST Alkaline Phosphatase Total Protein Albumin Albumin/Globulin Ratio Urine Blood Urine Nitrate Urine Bilirubin Ur Leukocyte Esterase 01/19/24 01/19/24 01/19/24 04:20 05:28 06:12 WBC RBC MCV MCH Neut % (Auto) Lymph % (Auto) Webster % (Auto) Lymph # (Auto) Neutrophils % (Manual) PT INR APTT ABG pH 7.29 L 7.23 L* ABG pCO2 20.1 L 28.5 L ABG pO2 162.9 H 265.9 H ABG HCO3 9.5 L 11.8 L ABG Total CO2 10.2 L 12.7 L ABG Base Excess -17.0 L -14.3 L VBG pH VBG pCO2 VBG HCO3 VBG Total CO2 VBG Base Excess VBG Lactic Acid Sodium 135 L Carbon Dioxide 10 L D Anion Gap 22.2 H BUN 65 H Creatinine 2.40 H Estimated GFR 19 L* Est GFR ( Amer) 23 L Glucose 146 H D POC Glucose Lactate 5.7 H Magnesium AST 122 H D Alkaline Phosphatase 185 H Total Protein 5.8 L Albumin 2.8 L D Albumin/Globulin Ratio 0.9 L Urine Blood Urine Nitrate Urine Bilirubin Ur Leukocyte Esterase Assessment and Plan *Assessment and plan (1) On mechanically assisted ventilation: Status: Acute Category: Medical Code(s): Z99.11 - Dependence on respirator [ventilator] status (2) Acute respiratory failure with hypoxia: Status: Acute Category: Medical Code(s): J96.01 - Acute respiratory failure with hypoxia Plan Patient intubated and sedated. Much of the history is obtained from chart review and patient family Ms. Carmichael is a 83-year-old female presented with abdominal discomfort diarrhea nausea vomiting, noted to have progressive worsening respiratory distress needing intubation and mechanical ventilatory support and pulmonary was called for further evaluation and management. Patient has been experiencing diarrhea and decreased p.o. intake for the last 3 to 4 days prior to admission. Afebrile. Leukopenia upon admission, improving. SHAUN with a BUN/creatinine of 65 and 2.40 with a GFR of 19. Estimated GFR within normal limits in January 2023. CT chest without contrast, bilateral lower lobe consolidative changes right greater than left. Respiratory viral PCR positive for enterorhinovirus Blood gas showed metabolic acidosis with respiratory compensation with a pH of 7.23, pCO2 of 28.5 and a pO2 of 266 and a PaO2 of 100%. Plan: -Continue annual consideration of propofol and fentanyl. Will stop with fentanyl as needed given her altered mentation at this point of time. -Continue mechanical ventilator support, currently on PEEP of 5 FiO2 of 35% tidal volume of 420 and a rate of 20. Will continue hyperventilation to compensate for metabolic acidosis at this point of time. DuoNebs every [address] chest showed bilateral lower lobe changes right greater than left, likely atelectasis. Continue ceftriaxone azithromycin. Follow with tracheal aspirate and Nasal MRSA PCR Abdomen soft nondistended. Hemodynamically unstable. On 4 of Levophed. Will follow after LR bolus. Blood cultures positive for Enterobacter and E. coli. Currently receiving ertapenem. Will follow. Renally dose medications. LR 500 bolus. Follow with urine output. Concerning for worsening renal function. Will closely monitor. - Continue mechanical ventilatory support - Continue AnalgoSedation with Propofol and Fentanyl with CPOT gal less than or euqal to 2 and RASS goal of to 2 (No need for deep sedation) - VAP bundle Recommend elevate head of the bed at 30 to 45 degrees Recommend oral care with chlorhexidne Recommend GI ulcer prophylaxis - Famotidine 20mg IV BID Recommend chemical DVT prophylaxis Total critical care time spent on this patient is 35 minutes managing acute hypoxic respiratory failure needing mechanical ventilation. This time spent include reviewing test results including interpreting chest x-rays, labs and arterial blood gas, optimizing the ventilator settings,formulating plan of care, discussing the plan of care with the team and the nursing staff.
[2024-01-19] MEDS: DEXTROSE 50% 50ML SYRINGE (CRASH CART) 25 ML IV ×3 (10:10→23:00)
[2024-01-19 10:35] LABS: ABG Base Excess -14.4 mmol/L (-2.4-2.3); ABG HCO3 13.2 mmhg (22.0-26.0); ABG Oxygen Saturation 94 % (90-100); ABG PCO2 32.6 mmhg (35.0-45.0); ABG PH 7.23 mmol/L (7.35-7.45); ABG PO2 74.3 mmhg (80-100); ABG TCO2 14.2 mmhg (23-27)
[2024-01-19 10:39] LABS: POC Glucose,Bedside 64 (70-110)
[2024-01-19 10:39] LABS: POC Glucose,Bedside 75 (70-110)
[2024-01-19] MEDS: RINGERS SOLUTION,LACTATED 500 ML 999 ML IV (10:39)
[2024-01-19 10:42] LABS: Allen's Test Patient Unable; Oxygen 35% %; PEEP 5; Source Arterial Line; Tidal Volume 420; Vent Rate 18
[2024-01-19 11:07] LABS: Rhinovirus/Enterovirus Detected (NotDetected)
[2024-01-19] MEDS: IPRATROPIUM/ALBUTEROL 3 ML NEB IH ×2 (11:25→18:18)
[2024-01-19 12:10] LABS: POC Glucose,Bedside 75 (70-110)
[2024-01-19 12:10] LABS: POC Glucose,Bedside 66 (70-110)
[2024-01-19 12:10] LABS: POC Glucose,Bedside 102 (70-110)
[2024-01-19 12:10] LABS: POC Glucose,Bedside 92 (70-110)
[2024-01-19] MEDS: FENTANYL CITRATE/PF 1,000 MCG in 0.9 % SODIUM CHLORIDE 80 ML 1.25 MCG IV (12:10)
--- NOTE | 2024-01-19 12:17 | PC.NURSE ---
Patient overbreathing ventilator, rr 32, end tidal co2 33. Dr. Hui notified and fentanyl drip ordered. Dose started at 12.5 mcg.
[2024-01-19] MEDS: DEXTROSE 50% 50ML SYRINGE (CRASH CART) 50 ML IV (12:32)
[2024-01-19] MEDS: Dex 5% in 0.45% NaCl 1,000 ML 150 ML IV (13:05)
[2024-01-19 13:27] LABS: POC Glucose,Bedside 134 (70-110)
[2024-01-19] MEDS: ACETAMINOPHEN 325MG/10.15ML UDC 650 MG G-TUBE ×2 (13:27→15:24)
--- NOTE | 2024-01-19 14:30 | EXP.CARD.CON ---
History of Present Illness History of Present Illness Consult date: 01/19/24 Requesting physician: Sage Lane Consult reason: hypotension Chief complaint: hypotension, SHAUN, intubated Additional Medical History:: 1. History of GERD/Garnica's esophagus 2. Former smoker 3. Atrial fibrillation on Eliquis therapy 4. Chronic lymphedema 5. Hyperlipidemia 6. Osteoarthritis 7. Hypertension 8. Hypothyroidism History of present illness: This 83-year-old female presented to the [facility] emergency department with c/o abdominal pain, nausea, and diarrhea for the last 2 days. She was actually seen in ER 01/15 with c/o leg pain and swelling, more right than left. Subsequently she developed the diarrhea, with multiple dark and watery stools and abdominal pain. She denied definitive hematochezia, melena or hematemesis. She denied fever, chills, chest pain, or shortness of breath. She denied urinary type symptomatology, and denied any vomiting. Patient has been taking loperamide with little to no relief of diarrhea. She denied any recent antibiotic use. Since her 01/15 ER visit she has been taking p.o. oxycodone but has only taken this medication twice with improvement in leg pain. Other past medical history consistent with GERD/Garnica's esophagus,. She is a former smoker. She has atrial fibrillation and is on anticoagulation therapy with Eliquis. She has chronic lymphedema, hyperlipidemia, osteoarthritis, hypothyroidism, and hypertension. She was admitted with diarrhea and with SHAUN: BUN=66/ creat=2.5/ GFR=18. Lactic acid was elevated. At 4:00 AM the patient started to decompensate. BS was found to be 41 (no hx of diabetes or diabetic medication). D50 was given but the patient developed hypotension and shortness of breath. Rapid Response was initiated with the patient receiving immediate attention from ER MD, Dr. Eileen Rodriguez. who intubated the patient, placed a femoral deep line and an arterial line. See Dr. Rodriguez's detailed note. Dr. Lane was also present at bedside. Blood gases showed the patient acidotic at 7.2, with subsequnt post intubation gas at 7.23. Dr. Rodriguez was concerned about cardiac function on bedside US evaluation. EKG showed A-fib. Troponins are normal. CT of the chest for PE, and for head are pending. The above per Dr. Lane Cardiology asked to see the patient due to hypotension necessitating blood pressure support (currently being weaned down due to improvement in pressure). Also concerning was possible cardiomyopathy noted on bedside echo in the ER. Echocardiogram today showed mild global hypokinesis with EF estimated at 45%. Mild to moderate RV dilation with mildly reduced RV function. Severe left atrial dilation noted. Troponins noted to be normal Creatinine 2.5 on admission with GFR of 18 Entero-/rhino PCR detected Blood culture show E. coli EKG on admission shows sinus rhythm but earlier this morning EKG show atrial fibrillation with variable rate from 90-110 beat per minutes. [facility] Disclaimer: The information contained in this section may have been updated after the patient was seen, as this information can be updated by other users. Medical History (Updated 01/19/24 @ 14:40 by MICKEY Duenas) Acute respiratory failure with hypoxia On mechanically assisted ventilation Diarrhea (~01/19/24) Collapse GERD (gastroesophageal reflux disease) Surgical History History of esophagogastroduodenoscopy (EGD) History of hysterectomy History of colonoscopy Family History Other Family history of diabetes mellitus type II Family history of hypothyroidism Social History (Updated 01/19/24 @ 00:44 by Mahi Russell RN) Smoking Status: Never smoker second hand exposure: No alcohol intake: never substance use type: denies use current occupational status: retired Travel in the last 8 weeks: None household members: spouse housing: house current occupational exposures/hazards: No caffeine: Yes Review of Systems Review of Systems Review of systems:: unable to obtain Exam Data for Last 24 hours Vital signs and Labs for Last 24 Hours: Temp Pulse Resp BP Pulse Ox O2 Del Method FiO2 100.2 F H 98 H 32 H 156/44 H 96 Mechanical Ventilation 35 01/19/24 11:58 01/19/24 14:00 01/19/24 14:00 01/19/24 14:00 01/19/24 14:00 01/19/24 14:00 01/19/24 13:57 Laboratory Results - last 24 hr 01/18/24 21:00: WBC 4.5 L, RBC 4.17 L, Hgb 13.5, Hct 41.2, MCV 98.7, MCH 32.3 H, MCHC 32.7, RDW 14.3, Plt Count 230, MPV 9.1, Neut % (Auto) 91.4 H, Lymph % (Auto) 6.1 L, [place] % (Auto) 1.6 L, Eos % (Auto) 0.2, Baso % (Auto) 0.7, Neut # (Auto) 4.1, Lymph # (Auto) 0.3 L, [place] # (Auto) 0.1, Eos # (Auto) 0.0, Baso # (Auto) 0.0, Total Counted 100, Neutrophils % (Manual) 82 H, Lymphocytes % (Manual) 10, Monocytes % (Manual) 8, Platelet Estimate Normal, Poikilocytosis 2+, Target Cells 2+, Jasbir Cells 2+, Schistocytes 1+, Sodium 133 L, Potassium 4.5, Chloride 105, Carbon Dioxide 12 L, Anion Gap 20.5 H, BUN 66 H, Creatinine 2.50 H, Estimated Creat Clear 19, Estimated GFR 18 L*, Est GFR ( Amer) 22 L, Glucose 61 L, Lactate 4.5 H, Calcium 9.7, Magnesium 2.4 H, Total Bilirubin 0.7, AST 89 H, ALT 40, Alkaline Phosphatase 153 H, Total Protein 6.3, Albumin 3.2 L, Globulin 3.1, Albumin/Globulin Ratio 1.0 L, Lipase 58, HIV 1&2 Antibody Rapid Nonreactive 01/19/24 01:20: Lactate 5.0 H 01/19/24 03:00: Urine Color Yellow, Urine Appearance Clear, Urine pH 5.0, Ur Specific [place] >= 1.030, Urine Protein Trace, Urine Glucose (UA) Negative, Urine Ketones Trace, Urine Blood 3+ A, Urine Nitrate Positive A, Urine Bilirubin 1+ A, Urine Urobilinogen 1.0, Ur Leukocyte Esterase 2+ A, Urine RBC 5-10, Urine WBC 50-100, Ur Squamous Epith Cells 20-50, Amorphous Sediment 2+, Urine Bacteria 2+, Hyaline Casts 3-5 01/19/24 03:59: POC Glucose 68 L 01/19/24 04:00: WBC 6.4 D, RBC 3.92 L, Hgb 12.4, Hct 38.9, MCV 99.2 H, MCH 31.6 H, MCHC 31.9, RDW 14.7, Plt Count 192, MPV 10.4, Neut % (Auto) 90.8 H, Lymph % (Auto) 6.5 L, [place] % (Auto) 1.9, Eos % (Auto) 0.2, Baso % (Auto) 0.6, Neut # (Auto) 5.8, Lymph # (Auto) 0.4 L, [place] # (Auto) 0.1, Eos # (Auto) 0.0, Baso # (Auto) 0.0, PT 15.4 H, INR 1.42 H, APTT 40.7 H 01/19/24 04:13: VBG pH 7.21 L, VBG pCO2 30.1 L, VBG pO2 35.9, VBG HCO3 11.7 L, VBG Total CO2 12.7 L, VBG O2 Saturation 66.9, VBG Base Excess -16.2 L, VBG Lactic Acid 6.7 H 01/19/24 04:20: Sodium 135 L, Potassium 4.2, Chloride 107, Carbon Dioxide 10 L D, Anion Gap 22.2 H, BUN 65 H, Creatinine 2.40 H, Estimated Creat Clear 19, Estimated GFR 19 L*, Est GFR ( Amer) 23 L, Glucose 146 H D, Lactate 5.7 H, Calcium 9.2, Total Bilirubin 0.8, AST 122 H D, ALT 50, Alkaline Phosphatase 185 H, Troponin I < 0.01, Total Protein 5.8 L, Albumin 2.8 L D, Globulin 3.0, Albumin/Globulin Ratio 0.9 L 01/19/24 04:21: POC Glucose 90 01/19/24 04:45: POC Glucose 102 01/19/24 05:06: POC Glucose 101 01/19/24 05:28: ABG pH 7.29 L, ABG pCO2 20.1 L, ABG pO2 162.9 H, ABG HCO3 9.5 L, ABG Total CO2 10.2 L, ABG O2 Saturation 99, ABG Base Excess -17.0 L 01/19/24 05:41: POC Glucose 108 01/19/24 05:57: POC Glucose 84 01/19/24 06:12: Specimen Source A-line, O2 % 100%, ABG pH 7.23 L*, ABG pCO2 28.5 L, ABG pO2 265.9 H, ABG HCO3 11.8 L, ABG Total CO2 12.7 L, ABG O2 Saturation 99, ABG Base Excess -14.3 L, Merrick Test Patient unable 01/19/24 07:21: POC Glucose 101 01/19/24 08:00: POC Glucose 92 01/19/24 08:07: Chlamy pneumoniae PCR Not detected, Adenovirus (PCR) Not detected, B. pertussis DNA (PCR) Not detected, Coronavirus OC43 (PCR) Not detected, Coronavirus HKU1 (PCR) Not detected, Coronavirus 229E (PCR) Not detected, SARS-CoV-2 (PCR) Not detected, Coronavirus NL63 (PCR) Not detected, Human Metapneumovir PCR Not detected, Influenza A (H1) PCR Not detected, Influ A (H1N1/09) PCR Not detected, Influenza A (H3) PCR Not detected, Influenza Type A (PCR) Not detected, Influenza Type B (PCR) Not detected, M. pneumoniae (PCR) Not detected, Parainfluenza 1 (PCR) Not detected, Parainfluenza 2 (PCR) Not detected, Parainfluenza 3 (PCR) Not detected, Parainfluenza 4 (PCR) Not detected, RSV (PCR) Not detected, Entero/Rhino (PCR) Detected A 01/19/24 09:00: POC Glucose 75 01/19/24 09:59: POC Glucose 64 L 01/19/24 10:25: Specimen Source Arterial line, O2 % 35%, ABG pH 7.23 L*, ABG pCO2 32.6 L, ABG pO2 74.3 L, ABG HCO3 13.2 L, ABG Total CO2 14.2 L, ABG O2 Saturation 94, ABG Base Excess -14.4 L, Merrick Test Patient unable, Vent Rate 18, Tidal Volume 420, PEEP 5 01/19/24 10:37: POC Glucose 92 01/19/24 11:03: POC Glucose 66 L 01/19/24 11:42: POC Glucose 102 01/19/24 12:02: POC Glucose 75 01/19/24 12:58: POC Glucose 134 H I & O for Last 24 hours: Intake & Output 01/17/24 01/18/24 01/19/24 12/03/24 11:59 11:59 11:59 11:59 Intake Total 828.976 / 828.976 152.729 / 152.729 Output Total 265 / 265 35 / 35 Balance 563.976 / 563.976 117.729 / 117.729 Weight 150 lb 0.005 oz Microbiology Reports for the Last 24 Hours: Microbiology 01/18/24 23:15 Blood Blood Culture - Preliminary 01/18/24 23:15 Blood Blood Culture - Preliminary 01/19/24 06:45 Sputum - Endotracheal Tube Aspirate Gram Stain - Final Constitutional Constitutional: obtunded *Routine Respiratory Exam Respiratory: Present patient mechanically ventilated *Routine Cardiovascular Exam Cardiovascular: Present irregularly irregular *Routine Abdominal Exam Comments: Mottling across the abdomen and upper thighs noted Meds Home Medications and Allergies Home Medications ?Medication ?Instructions ?Recorded ?Confirmed ?Type atorvastatin 20 mg tablet 20 mg PO HS 09/22/17 01/19/24 History dicyclomine 10 mg capsule 10 mg PO BID 09/22/17 01/19/24 History lisinopril 20 mg tablet 20 mg PO HS 09/22/17 01/19/24 History multivitamin (Daily Multi-Vitamin 1 tab PO QAM 09/22/17 01/19/24 History tablet) calcium 200 mg (as 1 each PO BID 10/13/17 01/19/24 History citrate)-vitamin D3 6.25 mcg (250 unit) tablet furosemide 20 mg tablet 20 mg PO DAILYP PRN Edema 12/02/19 01/19/24 History alendronate 70 mg tablet 70 mg PO WEEKLY 03/16/20 01/19/24 History verapamil 240 mg tablet,extended 360 mg PO DAILY 03/30/21 01/19/24 History release levothyroxine 25 mcg tablet 25 mcg PO AM 09/21/21 01/19/24 History pantoprazole 40 mg tablet,delayed 40 mg PO DAILY #90 tabs 10/13/23 01/19/24 Rx release apixaban 5 mg tablet (Eliquis) 5 mg PO BID 01/19/24 01/19/24 History diclofenac sodium 75 mg 75 mg PO BIDP PRN Pain (Scale 01/19/24 01/19/24 History tablet,delayed release Score 7-10) omega-3 fatty acids 1,000 mg 1,000 mg PO DAILY 01/19/24 01/19/24 History capsule oxycodone 5 mg tablet 5 mg PO Q8HP PRN Pain (Scale Score 01/19/24 01/19/24 History 4-6) New Prescriptions to Start Prescriptions: Allergies Allergy/AdvReac Type Severity Reaction Status Date / Time No Known Allergies Allergy Verified 12/04/23 09:57 Assessment and Plan *Assessment and plan (1) On mechanically assisted ventilation: Status: Acute Category: Medical Code(s): Z99.11 - Dependence on respirator [ventilator] status (2) Acute respiratory failure with hypoxia: Status: Acute Category: Medical Code(s): J96.01 - Acute respiratory failure with hypoxia (3) SHAUN (acute kidney injury): Status: Acute Category: Medical Code(s): N17.9 - Acute kidney failure, unspecified (4) Diarrhea: Status: Acute Qualifiers: Diarrhea type: infectious Qualified Code(s): A09 - Infectious gastroenteritis and colitis, unspecified Category: Medical Code(s): R19.7 - Diarrhea, unspecified (5) Atrial fibrillation: Status: Acute Qualifiers: Atrial fibrillation type: paroxysmal Qualified Code(s): I48.0 - Paroxysmal atrial fibrillation Category: Medical Code(s): I48.91 - Unspecified atrial fibrillation Plan 1. Acute resp failure with hypoxia -intubated and mech vented -sedated with propofol and fentanyl -hypotension improved with levophed (weaning off) 2. Sepsis, Diarrhea with SHAUN -sepsis with blood culture showing e. coli -on azithromycin and ertapenem -on IV fluids 3. Chronic A. fib/flutter with RVR -recurrent due to sepsis -use IV diltiazem if needed for rate control as BP allows -use lovenox (head CT negative for acute bleed) 4. Mild Cardiomyopathy on echo -likely due to sepsis -start GDMT when taking oral meds -consider cardiac MRI when awake, extubated and able to follow directions to assess for myocarditis Watch for fluid overload continue sepsis treatment
[2024-01-19 14:33] LABS: POC Glucose,Bedside 93 (70-110)
[2024-01-19 15:20] LABS: POC Glucose,Bedside 159 (70-110)
--- NOTE | 2024-01-19 15:20 | PC.NURSE ---
patient temp still 101.7 with temp sensing bethanie garcia aprn notified. Ordered to give another dose of 650 mg acetaminophen
--- NOTE | 2024-01-19 16:52 | PC.NURSE ---
TECH NOTE; NURSE NOTIFIED OF TEMPERATURE FOR 1600 VITAL SIGNS Lg COOK, SRNA
[2024-01-19 17:19] LABS: POC Glucose,Bedside 101 (70-110)
--- NOTE | 2024-01-19 17:43 | PC.NURSE ---
Lung sounds diminished, patient remained on ventilator. Respirations in 30's, pulmonology aware. Patient febrile during shift, tylenol given twice but patient still febrile. No bowel movement noted during shift
[2024-01-19 18:49] LABS: POC Glucose,Bedside 93 (70-110)
[2024-01-19] MEDS: IBUPROFEN 200MG/10ML SUSP UDC 600 MG PO (18:49)
[2024-01-19] MEDS: 0.9 % SODIUM CHLORIDE 1000ML 1,000 ML 50 ML IV (19:56)
--- NOTE | 2024-01-19 21:30 | ECG_ITS ---
APPROVED REPORT Exam: Resting ECG HR:103 bpm ECG Measurements Heart Rate 103 AXES SD 157 P 40 QRSd 85 QRS 30 QT 303 T 31 QTc 363 Conclusion SINUS TACHYCARDIA LOW QRS VOLTAGE [QRS DEFLECTION < 0.5/1.0 mV IN LIMB/CHEST LEADS] ABNORMAL ECG INTERPRETATION BASED ON A DEFAULT AGE OF 40 YEARS UNCONFIRMED REPORT Electronically signed by : Dakota Beebe MD 01/20/2024 08:41:23
--- NOTE | 2024-01-19 21:45 | EXP.EVENT.NO ---
[place] rapid response was called. I proceeded to room and was told that the patient had gone into ventricular fibrillation but had come out of it on her own and presently had a pulse. Patient's blood pressure was slightly low so Levophed was increased to bring blood pressure closer to a MAP of 65.. Noted that the patient's respiratory rate was in the 30s and the ventilator is set at 20.. Patient is on fentanyl and succinylcholine. Nursing was able to draw labs have sent those down. Did not see a need for a new chest x-ray. EKG showed she was in a sinus rhythm with with tachycardia. No new ST elevations. Dr. Talley who is on-call tonight was notified cardiology was notified pulmonology is being notified. That the patient is overbreathing the vent. Presently stable at this time did not need to start any antiarrhythmics for the ventricular fibrillation. Amiodarone is available if needed.. Her son has been updated by myself and the charge nurse as to his mother's condition. Presently she is at her previous condition ventilated and stable with her vital signs with increased respiratory rate and tachycardia. Nursing will notify me if I am needed again in the room. Since the providers have been contacted about this event. I have been notified her internal temperature on the Ryan catheter was 104.4 now. They will contact for her attending to let him know this Thank you Brett PAREDES
[2024-01-19 22:12] LABS: ABG Base Excess -19.8 mmol/L (-2.4-2.3); ABG Oxygen Saturation 90 % (90-100); ABG PH 7.22 mmol/L (7.35-7.45); ABG PO2 61.6 mmhg (80-100); ABG TCO2 8.6 mmhg (23-27)
[2024-01-19 22:17] LABS: Albumin Level 2.3 g/dl (3.5-5.0); Chloride 108 mmol/L (98-107); Potassium 5.6 mmoL/L (3.5-5.1); Sodium 131 mmol/L (136-145)
[2024-01-19 22:19] LABS: Alanine Aminotransferase 289 U/L (12-78); Bilirubin,Total 0.8 mg/dl (0.2-1.3); Blood Urea Nitrogen 71 mg/dl (7-17)
[2024-01-19 22:20] LABS: Albumin/Globulin Ratio 0.9 (1.1-1.8); Alkaline Phosphatase 177 U/L (38-126); Anion Gap 19.6 mEq/L (5-15); Calcium 7.5 mg/dl (8.4-10.2); Globulin 2.6 g/dL (1.3-3.2); Glucose 61 mg/dl (74-100); Magnesium 2.7 mg/dl (1.6-2.3); Total Protein,Serum 4.9 g/dl (6.3-8.2)
[2024-01-19] MEDS: Dextrose 5 % and 0.9 % NaCl 1,000 ML 999 ML IV (22:20)
[2024-01-19 22:22] LABS: Basophils # 0.1 K/mm3 (0-0.2); Basophils % 1.1 % (0.1-2.0); Eosinophils % 0.2 % (0.1-12.0); Hematocrit 36.4 % (37.0-47.0); Hemoglobin 11.8 g/dL (12.2-16.2); Lymphocytes # 0.9 K/mm3 (0.7-4.5); Lymphocytes % 12.3 % (10-50); Mean Corpuscular HGB Conc 32.3 g/dL (31.8-35.4); Mean Corpuscular Hemoglobin 31.9 pg (27.0-31.2); Mean Corpuscular Volume 98.7 fl (81-99); Mean Platelet Volume 10.8 fl (7.4-10.4); Monocytes # 0.4 K/mm3 (0.1-1.0); Monocytes % 4.9 % (1.7-9.3); Neutrophils # 6.1 K/mm3 (1.8-7.8); Neutrophils % 81.6 % (37.0-80.0); Platelet Count 71 K/mm3 (142-424); Red Blood Count 3.69 M/mm3 (4.20-5.40); White Blood Count 7.5 K/mm3 (4.8-10.8)
[2024-01-19 22:26] LABS: Creatinine Clearance Estimated 17 mL/min (50-200); Estimated Glomerular Filt Rate 16 ml/min (>60); GFR (African American) 20 ML/MIN (>60)
[2024-01-19 22:29] LABS: Aspartate Amino Transferase 925 U/L (14-36)
[2024-01-19 22:30] LABS: Carbon Dioxide 9 mmol/L (22.0-30.0)
[2024-01-19 22:31] LABS: Troponin I 0.07 ng/ml (0.00-0.034)
[2024-01-19] MEDS: ACETAMINOPHEN 650MG SUPPOSITORY 650 MG RC (23:01)
[2024-01-19] MEDS: MAGNESIUM SULFATE IN WATER 2 GM/50 ML PIGGYBACK IV (23:02)
[2024-01-19 23:19] LABS: POC Glucose,Bedside 61 (70-110)
[2024-01-19 23:19] LABS: POC Glucose,Bedside 203 (70-110)
[2024-01-19] MEDS: Dextrose 5 % and 0.9 % NaCl 1,000 ML 200 ML IV (23:20)
[2024-01-19] MEDS: NOREPINEPHRINE BITARTRATE/D5W 8 MG/250 ML PLAST..BAG 33.75 MG IV (23:37)
--- NOTE | 2024-01-19 23:45 | PC.NURSE ---
2116 FSBS 61 - 1/2 amp Dextrose administered 2119 wine and spirits clerk notified this RN of rhythm change on telemetry. RN noted pt to be in VFIB. 2120 Rapid response called to pt room. Pt did not lose pulse. 2121 Crash cart brought to room, pads placed on pt. 2122 EKG performed- pt had converted out of VFIB and was sinus tach without intervention. 2124 K Edwin ZAMUDION, S Call (supervisor purification), Mariia Sepulveda (RT), Mariia Tapia, Mahendra Jimenez, Ping Gomez and this RN at bedside. 2127 K Edwin orders for STAT labs- CBC, BNP, troponin, magnesium [address] Beebe 2129 BP 85/40, HR 104, RR 37, O2 97%, core temp 103.8. More ice applied to pt and room temp turned down. [address] Cano 2139 Spoke with APRYL Husain at this time. 2141 Spoke with Ceci Beebe - Ordered for 2g Magnesium IV ONCE, 500ml bolus NS, 1 L blous Dextrose 5% in NS, and to start maintenance fluids of D5 NS at 200ml/hr. 2199 Pt has brown drainage coming from mouth. Pt OG hooked to low wall suction, 807ml immediately drained. Oral care provided. 2209 ABG obtained per Lg Pineda order. [address] Beebe of core temp 104.5. Unable to give Tylenol through OG. Concepc[place] orders for 650mg Tylenol suppository q6h PRN. Hold OG meds at this time. 2252 FSBS 203 2315 core temp 102.2 [address] given [address] Beebe. NNO at this time.
[2024-01-20] VITALS (35 sets, daily range): BP systolic 78–190; BP diastolic 22–96; PULSE 64–144; RESP 20–32; TEMP 35.8–38.4; O2SAT 81–100; BMI 32.1
[2024-01-20] MEDS: DEXTROSE 50% 50ML SYRINGE (CRASH CART) 50 ML IVP (01:30)
[2024-01-20 01:40] LABS: Glucose,Random 92 mg/dL (74-100)
--- NOTE | 2024-01-20 02:12 | PC.NURSE ---
0212 Pt sugar reading too low to read in right hand 2x. STAT glucose ordered. Blood sent to lab. 1 amp Dextrose administered per Compensation Administrator. STAT glucose came back as 96. Pt sugar checked in left hand reading 214 after 15 minutes. Right hand rechecked and was reading too low to measure. Right hand colder and cap refill very slow compared to left hand. ART line in place in right wrist. Pt also having runs of VFIB on monitor. Pt also continues not to have urine output. Concepción ABBOTT made aware. Orders to take out ART line and give 1 L NS bolus, keep D5 NS going @ 200ml/hr. States to order CBC, CMP, and mag for AM labs. Concepción also notified of rise in liver enzymes. States to order lipase.
[2024-01-20 02:40] LABS: Lipase 57 U/L (23-300)
--- NOTE | 2024-01-20 02:53 | ECG_ITS ---
APPROVED REPORT Exam: Resting ECG HR:86 bpm ECG Measurements Heart Rate 86 AXES CA 160 P 66 QRSd 97 QRS 48 QT 360 T 24 QTc 404 Conclusion SINUS RHYTHM LOW QRS VOLTAGE IN PRECORDIAL LEADS [QRS DEFLECTION < 1.0 mV IN CHEST LEADS] MODERATE ST DEPRESSION [0.05+ mV ST DEPRESSION] ABNORMAL ECG UNCONFIRMED REPORT Electronically signed by : Dakota Beebe MD 01/21/2024 20:56:19
[2024-01-20 03:20] LABS: POC Glucose,Bedside 163 (70-110)
[2024-01-20] MEDS: Dextrose 5 % and 0.9 % NaCl 1,000 ML 200 ML IV ×2 (04:24→09:28)
[2024-01-20] MEDS: 0.9 % SODIUM CHLORIDE 1000ML 1,000 ML 999 ML IV (04:25)
[2024-01-20 04:54] LABS: POC Glucose,Bedside 101 (70-110)
[2024-01-20] MEDS: AZITHROMYCIN 500 MG in 0.9 % SODIUM CHLORIDE 250 ML 250 MG IV (05:36)
[2024-01-20 05:57] LABS: POC Glucose,Bedside 104 (70-110)
[2024-01-20 06:03] LABS: Basophils # 0.1 K/mm3 (0-0.2); Hematocrit 29.9 % (37.0-47.0); Lymphocytes # 0.9 K/mm3 (0.7-4.5); Lymphocytes % 8.7 % (10-50); Mean Corpuscular HGB Conc 32.1 g/dL (31.8-35.4); Mean Corpuscular Volume 99.6 fl (81-99); Mean Platelet Volume 11.3 fl (7.4-10.4); Monocytes # 1.3 K/mm3 (0.1-1.0); Monocytes % 13.1 % (1.7-9.3); Neutrophils # 7.8 K/mm3 (1.8-7.8); Neutrophils % 77.1 % (37.0-80.0); Red Blood Count 3.01 M/mm3 (4.20-5.40); Red Cell Distribution Width 15.3 % (11.5-17.5); White Blood Count 10.1 K/mm3 (4.8-10.8)
[2024-01-20 06:05] LABS: Albumin Level 1.5 g/dl (3.5-5.0); Chloride 113 mmol/L (98-107); Potassium 4.9 mmoL/L (3.5-5.1); Sodium 132 mmol/L (136-145)
[2024-01-20 06:06] LABS: Platelet Count 50 K/mm3 (142-424)
[2024-01-20 06:07] LABS: Blood Urea Nitrogen 63 mg/dl (7-17); Hemoglobin 9.7 g/dL (12.2-16.2)
[2024-01-20 06:08] LABS: Albumin/Globulin Ratio 0.8 (1.1-1.8); Alkaline Phosphatase 181 U/L (38-126); Anion Gap 13.9 mEq/L (5-15); Bilirubin,Total 0.7 mg/dl (0.2-1.3); Calcium 6.4 mg/dl (8.4-10.2); Glucose 97 mg/dl (74-100); Total Protein,Serum 3.5 g/dl (6.3-8.2)
[2024-01-20 06:09] LABS: Magnesium 3.1 mg/dl (1.6-2.3)
[2024-01-20] MEDS: IPRATROPIUM/ALBUTEROL 3 ML NEB IH ×3 (06:09→19:18)
[2024-01-20 06:14] LABS: Creatinine Clearance Estimated 21 mL/min (50-200); Estimated Glomerular Filt Rate 18 ml/min (>60); GFR (African American) 21 ML/MIN (>60)
[2024-01-20 06:16] LABS: Alanine Aminotransferase 871 U/L (12-78)
[2024-01-20] MEDS: FENTANYL CITRATE/PF 1,000 MCG in 0.9 % SODIUM CHLORIDE 80 ML 3.75 MCG IV (06:17)
[2024-01-20] MEDS: NOREPINEPHRINE BITARTRATE/D5W 8 MG/250 ML PLAST..BAG 37.5 MG IV (06:17)
[2024-01-20 06:38] LABS: Aspartate Amino Transferase 2506 U/L (14-36)
[2024-01-20 06:40] LABS: Carbon Dioxide 10 mmol/L (22.0-30.0)
--- NOTE | 2024-01-20 07:01 | PC.NURSE ---
End of shift summary: Vent settings continue with TV 420, PEEP 5, FIo2 35%, RR 20 Drip titration- Levophed gtt @ 20 mcg/min Fentanyl @ 37.5 mcg/hr Propofol @ 5mcg/kg/min Pt respiration rate has improved through night with rate 18-26 this AM. Pt over breathes vent with any titrating of drips. Ryan catheter in place draining cloudy tea colored urine. Minimal output throughout night, Concepción ABBOTT made aware. ETT @ 23cm at the lip. OG @ 55cm to low wall suction draining dark brown drainage. Aprox 1200ml output from OG through night.
--- NOTE | 2024-01-20 07:37 | US_ITS ---
FINAL REPORT CLINICAL HISTORY: sepsis, gallstone COMPARISON: CT abdomen and pelvis from 01/18/2024 FINDINGS: Sonographic images of the right upper quadrant were obtained. The pancreas is obscured.The liver has an unremarkable appearance. There is a 2.3 cm gallstone present in the gallbladder, which is also distended up to 3.8 cm in diameter. There is borderline gallbladder wall thickening, the gallbladder wall measuring 3 mm. The common bile duct was not measured, however no biliary ductal dilatation is seen on these images. Note is made of a 4.8 cm right renal hypoechoic cyst. IMPRESSION: There is a 2.3 cm gallstone present in the gallbladder, which is also distended. There is borderline gallbladder wall thickening, the gallbladder wall measuring 3 mm. The common bile duct was not measured, but there is no visualization of either intra or extrahepatic ductal dilatation. Reviewed, Interpreted and Dictated by Edwin Rincon III, MD Transcribed by Estelita Carrizales Authenticated and [facility]
[2024-01-20 08:19] LABS: HCV Ab Non Reactive (Non Reactive)
--- NOTE | 2024-01-20 08:22 | EXP.ACUTE.PN ---
Subjective *Date: 01/20/24 *Time: 08:54 Interval history: Patient remains sedated and is on the vent. Nursing states she had a stable night. She remains on Levophed. She had a fever up to 104 and is now 97. She remains mottled in the abdomen abdominal region and upper extremities. She has discoloration of the lower extremities. Vent settings at present with a tidal volume of 450 FiO2 of 35% with assist-control of 20 and on 5 of PEEP. As well as continued Levophed drip. Labs this morning show hemoglobin of 9.7 hematocrit of 29.9. Platelet count is low at 50,000. Blood chemistry shows sodium of 132 potassium is 4.9. BUN is 63 and creatinine is 2.6. GFR is 18. Liver functions are very elevated with an AST of 2506 and an ALT of 871. Blood cultures are positive for gram-negative rods with PCR showing Enterobacter and E. coli. Sensitivities are pending. Urine culture shows gram-negative rods as well with a colony count of greater than 100,000. Sputum culture results are pending. Respiratory panel is positive for enterorhino. Last ABGs continue to show a metabolic acidosis with a pH of 7.22 pCO2 of 20 and a bicarb of 8. Blood sugars have continued to be low requiring D50 W. She is now on D5 one half normal saline at 150 an hour. She is receiving Zithromax, Invanz and remains on the Propofol drip and is sedated. Medical Exam Vital signs and Labs for Last 24 Hours: Vital Signs Temp Pulse Pulse Resp BP Pulse Ox O2 Del Method 01/20/24 07:00 79 24 95/57 L 96 Mechanical Ventilation 01/20/24 06:53 Mechanical Ventilation 01/20/24 06:09 91 H 01/20/24 06:09 90 01/20/24 06:09 23 95 01/20/24 06:00 97.6 F 85 23 104/49 L 95 Mechanical Ventilation 01/20/24 05:00 Mechanical Ventilation 01/20/24 05:00 97.9 F 79 21 107/47 L 96 Mechanical Ventilation 01/20/24 04:05 25 H 97 01/20/24 04:00 99.1 F 87 21 114/49 L 97 Mechanical Ventilation 01/20/24 04:00 97 Mechanical Ventilation 01/20/24 04:00 87 01/20/24 03:00 99.3 F 93 H 27 H 121/53 L 96 Mechanical Ventilation 01/20/24 03:00 Mechanical Ventilation 01/20/24 02:00 99.8 F H 88 28 H 140/36 L 95 Mechanical Ventilation 01/20/24 02:00 26 H 97 01/20/24 01:00 100.2 F H 89 31 H 121/31 L 97 Mechanical Ventilation 01/20/24 01:00 Mechanical Ventilation 01/20/24 00:25 30 H 98 01/20/24 00:00 Mechanical Ventilation 01/20/24 00:00 93 H 01/20/24 00:00 101.1 F H 93 H 32 H 116/28 L 95 Mechanical Ventilation 01/19/24 23:15 102.2 F H 01/19/24 23:00 Mechanical Ventilation 01/19/24 23:00 96 H 31 H 118/30 L 94 L Mechanical Ventilation 01/19/24 22:20 28 H 92 L 01/19/24 22:16 104.5 F H 01/19/24 22:00 106 H 37 H 114/37 L 95 Mechanical Ventilation 01/19/24 21:30 103.8 F H 104 H 37 H 85/40 L 97 Mechanical Ventilation 01/19/24 21:00 Mechanical Ventilation 01/19/24 21:00 103.6 F H 104 H 37 H 103/36 L 97 Mechanical Ventilation 01/19/24 20:13 36 H 98 01/19/24 20:00 Mechanical Ventilation 01/19/24 20:00 103.5 F H 104 H 37 H 103/43 L 99 Mechanical Ventilation 01/19/24 20:00 104 H 01/19/24 19:00 104 H 36 H 131/57 L 99 Room Air 01/19/24 19:00 Mechanical Ventilation 01/19/24 18:18 99 H 01/19/24 18:18 103 H 01/19/24 18:18 35 H 99 01/19/24 18:00 102 H 36 H 104/49 L 98 Mechanical Ventilation 01/19/24 17:00 100 H 37 H 104/51 L 98 Mechanical Ventilation 01/19/24 17:00 Mechanical Ventilation 01/19/24 16:00 Mechanical Ventilation 01/19/24 16:00 100 H 01/19/24 16:00 102.2 F H 01/19/24 16:00 100 H 37 H 140/42 L 97 Mechanical Ventilation 01/19/24 15:00 Mechanical Ventilation 01/19/24 15:00 101.7 F H 100 H 34 H 136/41 L 96 Mechanical Ventilation 01/19/24 14:00 98 H 32 H 156/44 H 96 Mechanical Ventilation 01/19/24 13:57 28 H 96 01/19/24 13:00 Mechanical Ventilation 01/19/24 13:00 95 H 32 H 126/57 L 96 Mechanical Ventilation 01/19/24 12:00 100 H 01/19/24 12:00 Mechanical Ventilation 01/19/24 11:58 100.2 F H 94 H 22 140/46 L 100 Mechanical Ventilation 01/19/24 11:25 91 H 01/19/24 11:25 94 H 01/19/24 11:00 92 H 27 H 140/44 L 98 Mechanical Ventilation 01/19/24 10:55 Mechanical Ventilation 01/19/24 10:45 29 H 98 01/19/24 10:00 91 H 18 115/36 L 98 Room Air 01/19/24 09:00 Room Air 01/19/24 09:00 91 H 18 143/42 H 95 Mechanical Ventilation FiO2 01/20/24 07:00 35 01/20/24 06:53 01/20/24 06:09 01/20/24 06:09 01/20/24 06:09 35 01/20/24 06:00 35 01/20/24 05:00 01/20/24 05:00 35 01/20/24 04:05 35 01/20/24 04:00 35 01/20/24 04:00 35 01/20/24 04:00 01/20/24 03:00 35 01/20/24 03:00 01/20/24 02:00 35 01/20/24 02:00 35 01/20/24 01:00 35 01/20/24 01:00 01/20/24 00:25 35 01/20/24 00:00 35 01/20/24 00:00 01/20/24 00:00 35 01/19/24 23:15 01/19/24 23:00 01/19/24 23:00 35 01/19/24 22:20 35 01/19/24 22:16 01/19/24 22:00 35 01/19/24 21:30 35 01/19/24 21:00 01/19/24 21:00 35 01/19/24 20:13 35 01/19/24 20:00 35 01/19/24 20:00 35 01/19/24 20:00 01/19/24 19:00 01/19/24 19:00 01/19/24 18:18 01/19/24 18:18 01/19/24 18:18 35 01/19/24 18:00 01/19/24 17:00 01/19/24 17:00 01/19/24 16:00 01/19/24 16:00 01/19/24 16:00 01/19/24 16:00 01/19/24 15:00 01/19/24 15:00 01/19/24 14:00 01/19/24 13:57 35 01/19/24 13:00 01/19/24 13:00 01/19/24 12:00 01/19/24 12:00 01/19/24 11:58 01/19/24 11:25 01/19/24 11:25 01/19/24 11:00 01/19/24 10:55 01/19/24 10:45 35 01/19/24 10:00 01/19/24 09:00 01/19/24 09:00 Intake and Output 01/19/24 01/20/24 01/20/24 19:59 03:59 11:59 Intake Total 874.187 / 841.711 2005.813 / 2654.000 2267.292 / 4921.292 Output Total 75 / 75 795 / 870 450 / 1320 Balance 799.187 / 799.187 984.813 / 2059.409 1716.292 / 3601.292 Intake: Intake, Total IV Amount 874.187 / 496.317 9612.813 / 2654.000 2267.292 / 4921.292 0.9 % Sodium Chloride 1000ML 1, 200 / 200 000 ml @ 50 mls/hr IV .Q20H DELPHINE Rx#:[id number] 0.9 % Sodium Chloride 1000ML 1, 1000 / 1000 000 ml @ 999 mls/hr IV .Q1H1M ONE Rx#:[id number] 0.9 % Sodium Chloride 500 ml @ 500 / 500 500 mls/hr IV .Q1H ONE Rx#: [id number] Dex 5% in 0.45% NaCl 1,000 ml @ 821 / 821 150 mls/hr IV .Q6H40M ONE Rx#: [id number] Dextrose 5 % and 0.9 % NaCl 1, 1025 / 1025 000 ml @ 200 mls/hr IV .Q5H DELPHINE Rx#:[id number] Dextrose 5 % and 0.9 % NaCl 1, 882 / 882 000 ml @ 999 mls/hr IV .Q1H1M ONE Rx#:[id number] Output: Output, Urine Amount 15 / 15 Output, Urine Amount (Catheter) 75 / 75 30 / 105 Ryan 75 / 75 30 / 105 Output, Gastric Drainage Amount 750 / 750 450 / 1200 Oral 750 / 750 450 / 1200 Other: Number of Unmeasured Voids 0 Weight 149 lb 14.629 oz 174 lb 13.225 oz Patient Weight 01/20/24 11:59 Weight 174 lb 13.225 oz Laboratory Results - last 24 hr 01/18/24 21:00: Hepatitis C Antibody Non reactive 01/19/24 08:07: Chlamy pneumoniae PCR Not detected, Adenovirus (PCR) Not detected, B. pertussis DNA (PCR) Not detected, Coronavirus OC43 (PCR) Not detected, Coronavirus HKU1 (PCR) Not detected, Coronavirus 229E (PCR) Not detected, SARS-CoV-2 (PCR) Not detected, Coronavirus NL63 (PCR) Not detected, Human Metapneumovir PCR Not detected, Influenza A (H1) PCR Not detected, Influ A (H1N1/09) PCR Not detected, Influenza A (H3) PCR Not detected, Influenza Type A (PCR) Not detected, Influenza Type B (PCR) Not detected, M. pneumoniae (PCR) Not detected, Parainfluenza 1 (PCR) Not detected, Parainfluenza 2 (PCR) Not detected, Parainfluenza 3 (PCR) Not detected, Parainfluenza 4 (PCR) Not detected, RSV (PCR) Not detected, Entero/Rhino (PCR) Detected A 01/19/24 09:00: POC Glucose 75 01/19/24 09:59: POC Glucose 64 L 01/19/24 10:25: Specimen Source Arterial line, O2 % 35%, ABG pH 7.23 L*, ABG pCO2 32.6 L, ABG pO2 74.3 L, ABG HCO3 13.2 L, ABG Total CO2 14.2 L, ABG O2 Saturation 94, ABG Base Excess -14.4 L, Merrick Test Patient unable, Vent Rate 18, Tidal Volume 420, PEEP 5 01/19/24 10:37: POC Glucose 92 01/19/24 11:03: POC Glucose 66 L 01/19/24 11:42: POC Glucose 102 01/19/24 12:02: POC Glucose 75 01/19/24 12:58: POC Glucose 134 H 01/19/24 14:07: POC Glucose 93 01/19/24 15:08: POC Glucose 159 H 01/19/24 16:57: POC Glucose 101 01/19/24 18:37: POC Glucose 93 01/19/24 21:17: POC Glucose 61 L 01/19/24 21:42: WBC 7.5, RBC 3.69 L, Hgb 11.8 L, Hct 36.4 L, MCV 98.7, MCH 31.9 H, MCHC 32.3, RDW 15.0, Plt Count 71 L D, MPV 10.8 H, Neut % (Auto) 81.6 H, Lymph % (Auto) 12.3, [place] % (Auto) 4.9, Eos % (Auto) 0.2, Baso % (Auto) 1.1, Neut # (Auto) 6.1, Lymph # (Auto) 0.9, [place] # (Auto) 0.4, Eos # (Auto) 0.0, Baso # (Auto) 0.1, Sodium 131 L, Potassium 5.6 H D, Chloride 108 H, Carbon Dioxide 9 L*, Anion Gap 19.6 H, BUN 71 H, Creatinine 2.80 H, Estimated Creat Clear 17, Estimated GFR 16 L*, Est GFR ( Amer) 20 L, Glucose 61 L D, Calcium 7.5 L, Magnesium 2.7 H D, Total Bilirubin 0.8, AST 925 H* D, ALT 289 H D, Alkaline Phosphatase 177 H, Troponin I 0.07 H, Total Protein 4.9 L, Albumin 2.3 L D, Globulin 2.6, Albumin/Globulin Ratio 0.9 L 01/19/24 22:03: ABG pH 7.22 L*, ABG pCO2 20.0 L, ABG pO2 61.6 L, ABG HCO3 8.0 L, ABG Total CO2 8.6 L, ABG O2 Saturation 90, ABG Base Excess -19.8 L 01/19/24 22:53: POC Glucose 203 H 01/20/24 01:24: Random Glucose 92, Lipase 57 01/20/24 03:09: POC Glucose 163 H 01/20/24 04:45: POC Glucose 101 01/20/24 05:47: WBC 10.1 D, RBC 3.01 L, Hgb 9.7 L D, Hct 29.9 L, MCV 99.6 H, MCH 32.0 H, MCHC 32.1, RDW 15.3, Plt Count 50 L D, MPV 11.3 H, Neut % (Auto) 77.1, Lymph % (Auto) 8.7 L, [place] % (Auto) 13.1 H, Eos % (Auto) 0.0 L, Baso % (Auto) 1.0, Neut # (Auto) 7.8, Lymph # (Auto) 0.9, [place] # (Auto) 1.3 H, Eos # (Auto) 0.0, Baso # (Auto) 0.1, Sodium 132 L, Potassium 4.9, Chloride 113 H, Carbon Dioxide 10 L D, Anion Gap 13.9, BUN 63 H, Creatinine 2.60 H, Estimated Creat Clear 21, Estimated GFR 18 L*, Est GFR ( Amer) 21 L, Glucose 97 D, Calcium 6.4 L, Magnesium 3.1 H D, Total Bilirubin 0.7, AST 2506 H* D, ALT 871 H*, Alkaline Phosphatase 181 H, Total Protein 3.5 L D, Albumin 1.5 L D, Globulin 2.0, Albumin/Globulin Ratio 0.8 L 01/20/24 05:50: POC Glucose 104 I & O for Labs for Last 24 Hours: Intake & Output 01/17/24 01/18/24 01/19/24 01/20/24 11:59 11:59 11:59 11:59 Intake Total 828.976 / 935.408 8938.292 / 4921.292 Output Total 265 / 265 1320 / 1320 Balance 563.976 / 093.803 2435.292 / 3601.292 Weight 150 lb 0.005 oz 174 lb 13.225 oz Microbiology Reports for the Last 24 Hours: Microbiology 01/19/24 03:00 Urine,Clean Catch Urine Culture - Preliminary Gram Negative Rods 01/18/24 23:15 Blood Blood Culture - Preliminary 01/18/24 23:15 Blood Blood Culture - Preliminary 01/19/24 06:45 Sputum - Endotracheal Tube Aspirate Gram Stain - Final Constitutional: Present severe distress Comment:: Sedated Respiratory: Present patient mechanically ventilated (Does assist ventilator with shallow respiratory effort) and decreased breath sounds (Posteriorly) Cardiac: Present Irregularly Regular (Monitor showing atrial FaBB) GI: Present soft and normal bowel sounds (???); Absent distention Comments:: NG tube to low wall suction showing dark brown aspirate. Comment:: Ryan catheter to bedside drainage with decreased urinary output Extremities: Present edema Comment:: Mottling of upper extremities with bilateral arm and leg edema. Scattered ecchymosis on upper and lower legs. Skin: Present ecchymosis Comment:: Sedated Assessment and Plan *Assessment and plan (1) Gram negative sepsis: Status: Acute Category: Medical Code(s): A41.50 - Gram-negative sepsis, unspecified (2) E. coli UTI: Status: Acute Category: Medical Code(s): N39.0 - Urinary tract infection, site not specified; B96.20 - Unspecified Escherichia coli [E. coli] as the cause of diseases classified elsewhere (3) Acute respiratory failure with hypoxia: Status: Acute Category: Medical Code(s): J96.01 - Acute respiratory failure with hypoxia (4) Collapse: Status: Acute Category: Medical Code(s): R55 - Syncope and collapse (5) SHAUN (acute kidney injury): Status: Acute Category: Medical Code(s): N17.9 - Acute kidney failure, unspecified (6) Diarrhea: Status: Acute Qualifiers: Diarrhea type: infectious Qualified Code(s): A09 - Infectious gastroenteritis and colitis, unspecified Category: Medical Code(s): R19.7 - Diarrhea, unspecified (7) Lymphedema: Status: Acute Category: Medical Code(s): I89.0 - Lymphedema, not elsewhere classified (8) Hypertension: Status: Acute Qualifiers: Hypertension type: unspecified Qualified Code(s): I10 - Essential (primary) hypertension Category: Medical Code(s): I10 - Essential (primary) hypertension (9) Hyperlipidemia: Status: Acute Qualifiers: Hyperlipidemia type: mixed hyperlipidemia Qualified Code(s): E78.2 - Mixed hyperlipidemia Category: Medical Code(s): E78.5 - Hyperlipidemia, unspecified (10) Gallstone: Status: Acute Category: Medical Code(s): K80.20 - Calculus of gallbladder without cholecystitis without obstruction (11) Ex-smoker for more than 1 year: Status: Acute Category: Social Hx Code(s): Z87.891 - Personal history of nicotine dependence (12) GERD (gastroesophageal reflux disease): Status: Acute Category: Medical Code(s): K21.9 - Gastro-esophageal reflux disease without esophagitis (13) Leg pain, right: Status: Acute Category: Medical Code(s): M79.604 - Pain in right leg (14) On mechanically assisted ventilation: Status: Acute Category: Medical Code(s): Z99.11 - Dependence on respirator [ventilator] status (15) Atrial fibrillation: Status: Acute Qualifiers: Atrial fibrillation type: paroxysmal Qualified Code(s): I48.0 - Paroxysmal atrial fibrillation Category: Medical Code(s): I48.91 - Unspecified atrial fibrillation Plan Son has been with patient since admission. Did discuss with him the seriousness of her critical condition. Pulmonology and cardiology will continue to follow. Will continue with current antibiotics and ventilator assistance. Also with IV fluids and Levophed drip. Will add a PPI.
[2024-01-20 09:01] LABS: POC Glucose,Bedside 128 (70-110)
--- NOTE | 2024-01-20 09:31 | EXP.PULM.PN ---
Subjective *Date: 01/20/24 *Time: 11:04 Interval history: Worsening hemodynamically status. Pulmonology Exam Inpatient Vital signs and Labs for Last 24 Hours: Temp Pulse Resp BP Pulse Ox O2 Del Method FiO2 97.0 F L 79 20 120/48 L 95 Mechanical Ventilation 35 01/20/24 08:18 01/20/24 08:18 01/20/24 08:18 01/20/24 08:18 01/20/24 08:18 01/20/24 08:18 01/20/24 08:18 Laboratory Results - last 24 hr 01/18/24 21:00: Hepatitis C Antibody Non reactive 01/19/24 08:07: Chlamy pneumoniae PCR Not detected, Adenovirus (PCR) Not detected, B. pertussis DNA (PCR) Not detected, Coronavirus OC43 (PCR) Not detected, Coronavirus HKU1 (PCR) Not detected, Coronavirus 229E (PCR) Not detected, SARS-CoV-2 (PCR) Not detected, Coronavirus NL63 (PCR) Not detected, Human Metapneumovir PCR Not detected, Influenza A (H1) PCR Not detected, Influ A (H1N1/09) PCR Not detected, Influenza A (H3) PCR Not detected, Influenza Type A (PCR) Not detected, Influenza Type B (PCR) Not detected, M. pneumoniae (PCR) Not detected, Parainfluenza 1 (PCR) Not detected, Parainfluenza 2 (PCR) Not detected, Parainfluenza 3 (PCR) Not detected, Parainfluenza 4 (PCR) Not detected, RSV (PCR) Not detected, Entero/Rhino (PCR) Detected A 01/19/24 09:00: POC Glucose 75 01/19/24 09:59: POC Glucose 64 L 01/19/24 10:25: Specimen Source Arterial line, O2 % 35%, ABG pH 7.23 L*, ABG pCO2 32.6 L, ABG pO2 74.3 L, ABG HCO3 13.2 L, ABG Total CO2 14.2 L, ABG O2 Saturation 94, ABG Base Excess -14.4 L, [place]rick Test Patient unable, Vent Rate 18, Tidal Volume 420, PEEP 5 01/19/24 10:37: POC Glucose 92 01/19/24 11:03: POC Glucose 66 L 01/19/24 11:42: POC Glucose 102 01/19/24 12:02: POC Glucose 75 01/19/24 12:58: POC Glucose 134 H 01/19/24 14:07: POC Glucose 93 01/19/24 15:08: POC Glucose 159 H 01/19/24 16:57: POC Glucose 101 01/19/24 18:37: POC Glucose 93 01/19/24 21:17: POC Glucose 61 L 01/19/24 21:42: WBC 7.5, RBC 3.69 L, Hgb 11.8 L, Hct 36.4 L, MCV 98.7, MCH 31.9 H, MCHC 32.3, RDW 15.0, Plt Count 71 L D, MPV 10.8 H, Neut % (Auto) 81.6 H, Lymph % (Auto) 12.3, [place] % (Auto) 4.9, Eos % (Auto) 0.2, Baso % (Auto) 1.1, Neut # (Auto) 6.1, Lymph # (Auto) 0.9, [place] # (Auto) 0.4, Eos # (Auto) 0.0, Baso # (Auto) 0.1, Sodium 131 L, Potassium 5.6 H D, Chloride 108 H, Carbon Dioxide 9 L*, Anion Gap 19.6 H, BUN 71 H, Creatinine 2.80 H, Estimated Creat Clear 17, Estimated GFR 16 L*, Est GFR ( Amer) 20 L, Glucose 61 L D, Calcium 7.5 L, Magnesium 2.7 H D, Total Bilirubin 0.8, AST 925 H* D, ALT 289 H D, Alkaline Phosphatase 177 H, Troponin I 0.07 H, Total Protein 4.9 L, Albumin 2.3 L D, Globulin 2.6, Albumin/Globulin Ratio 0.9 L 01/19/24 22:03: ABG pH 7.22 L*, ABG pCO2 20.0 L, ABG pO2 61.6 L, ABG HCO3 8.0 L, ABG Total CO2 8.6 L, ABG O2 Saturation 90, ABG Base Excess -19.8 L 01/19/24 22:53: POC Glucose 203 H 01/20/24 01:24: Random Glucose 92, Lipase 57 01/20/24 03:09: POC Glucose 163 H 01/20/24 04:45: POC Glucose 101 01/20/24 05:47: WBC 10.1 D, RBC 3.01 L, Hgb 9.7 L D, Hct 29.9 L, MCV 99.6 H, MCH 32.0 H, MCHC 32.1, RDW 15.3, Plt Count 50 L D, MPV 11.3 H, Neut % (Auto) 77.1, Lymph % (Auto) 8.7 L, [place] % (Auto) 13.1 H, Eos % (Auto) 0.0 L, Baso % (Auto) 1.0, Neut # (Auto) 7.8, Lymph # (Auto) 0.9, [place] # (Auto) 1.3 H, Eos # (Auto) 0.0, Baso # (Auto) 0.1, Sodium 132 L, Potassium 4.9, Chloride 113 H, Carbon Dioxide 10 L D, Anion Gap 13.9, BUN 63 H, Creatinine 2.60 H, Estimated Creat Clear 21, Estimated GFR 18 L*, Est GFR ( Amer) 21 L, Glucose 97 D, Calcium 6.4 L, Magnesium 3.1 H D, Total Bilirubin 0.7, AST 2506 H* D, ALT 871 H*, Alkaline Phosphatase 181 H, Total Protein 3.5 L D, Albumin 1.5 L D, Globulin 2.0, Albumin/Globulin Ratio 0.8 L 01/20/24 05:50: POC Glucose 104 01/20/24 08:51: POC Glucose 128 H Temp Pulse Resp BP Pulse Ox O2 Del Method FiO2 99.7 F H 91 H 18 143/42 H 95 Room Air 60 01/19/24 07:54 01/19/24 09:00 01/19/24 09:00 01/19/24 09:00 01/19/24 09:00 01/19/24 09:00 01/19/24 06:50 Laboratory Results - last 24 hr 01/18/24 21:00: WBC 4.5 L, RBC 4.17 L, Hgb 13.5, Hct 41.2, MCV 98.7, MCH 32.3 H, MCHC 32.7, RDW 14.3, Plt Count 230, MPV 9.1, Neut % (Auto) 91.4 H, Lymph % (Auto) 6.1 L, [place] % (Auto) 1.6 L, Eos % (Auto) 0.2, Baso % (Auto) 0.7, Neut # (Auto) 4.1, Lymph # (Auto) 0.3 L, [facility] # (Auto) 0.1, Eos # (Auto) 0.0, Baso # (Auto) 0.0, Total Counted 100, Neutrophils % (Manual) 82 H, Lymphocytes % (Manual) 10, Monocytes % (Manual) 8, Platelet Estimate Normal, Poikilocytosis 2+, Target Cells 2+, Jasbir Cells 2+, Schistocytes 1+, Sodium 133 L, Potassium 4.5, Chloride 105, Carbon Dioxide 12 L, Anion Gap 20.5 H, BUN 66 H, Creatinine 2.50 H, Estimated Creat Clear 19, Estimated GFR 18 L*, Est GFR ( Amer) 22 L, Glucose 61 L, Lactate 4.5 H, Calcium 9.7, Magnesium 2.4 H, Total Bilirubin 0.7, AST 89 H, ALT 40, Alkaline Phosphatase 153 H, Total Protein 6.3, Albumin 3.2 L, Globulin 3.1, Albumin/Globulin Ratio 1.0 L, Lipase 58, HIV 1&2 Antibody Rapid Nonreactive 01/19/24 01:20: Lactate 5.0 H 01/19/24 03:00: Urine Color Yellow, Urine Appearance Clear, Urine pH 5.0, Ur Specific [place] >= 1.030, Urine Protein Trace, Urine Glucose (UA) Negative, Urine Ketones Trace, Urine Blood 3+ A, Urine Nitrate Positive A, Urine Bilirubin 1+ A, Urine Urobilinogen 1.0, Ur Leukocyte Esterase 2+ A, Urine RBC 5-10, Urine WBC 50-100, Ur Squamous Epith Cells 20-50, Amorphous Sediment 2+, Urine Bacteria 2+, Hyaline Casts 3-5 01/19/24 03:59: POC Glucose 68 L 01/19/24 04:00: WBC 6.4 D, RBC 3.92 L, Hgb 12.4, Hct 38.9, MCV 99.2 H, MCH 31.6 H, MCHC 31.9, RDW 14.7, Plt Count 192, MPV 10.4, Neut % (Auto) 90.8 H, Lymph % (Auto) 6.5 L, [place] % (Auto) 1.9, Eos % (Auto) 0.2, Baso % (Auto) 0.6, Neut # (Auto) 5.8, Lymph # (Auto) 0.4 L, [facility] # (Auto) 0.1, Eos # (Auto) 0.0, Baso # (Auto) 0.0, PT 15.4 H, INR 1.42 H, APTT 40.7 H 01/19/24 04:13: VBG pH 7.21 L, VBG pCO2 30.1 L, VBG pO2 35.9, VBG HCO3 11.7 L, VBG Total CO2 12.7 L, VBG O2 Saturation 66.9, VBG Base Excess -16.2 L, VBG Lactic Acid 6.7 H 01/19/24 04:20: Sodium 135 L, Potassium 4.2, Chloride 107, Carbon Dioxide 10 L D, Anion Gap 22.2 H, BUN 65 H, Creatinine 2.40 H, Estimated Creat Clear 19, Estimated GFR 19 L*, Est GFR ( Amer) 23 L, Glucose 146 H D, Lactate 5.7 H, Calcium 9.2, Total Bilirubin 0.8, AST 122 H D, ALT 50, Alkaline Phosphatase 185 H, Troponin I < 0.01, Total Protein 5.8 L, Albumin 2.8 L D, Globulin 3.0, Albumin/Globulin Ratio 0.9 L 01/19/24 04:21: POC Glucose 90 01/19/24 04:45: POC Glucose 102 01/19/24 05:06: POC Glucose 101 01/19/24 05:28: ABG pH 7.29 L, ABG pCO2 20.1 L, ABG pO2 162.9 H, ABG HCO3 9.5 L, ABG Total CO2 10.2 L, ABG O2 Saturation 99, ABG Base Excess -17.0 L 01/19/24 05:41: POC Glucose 108 01/19/24 05:57: POC Glucose 84 01/19/24 06:12: Specimen Source A-line, O2 % 100%, ABG pH 7.23 L*, ABG pCO2 28.5 L, ABG pO2 265.9 H, ABG HCO3 11.8 L, ABG Total CO2 12.7 L, ABG O2 Saturation 99, ABG Base Excess -14.3 L, Merrick Test Patient unable 01/19/24 07:21: POC Glucose 101 01/19/24 08:00: POC Glucose 92 I & O for Labs for Last 24 Hours: Intake & Output 01/17/24 01/18/24 01/19/24 01/20/24 23:59 23:59 23:59 23:59 Intake Total 3438.538 / 3438.538 2442.589 / 2442.589 Output Total 360 / 360 1225 / 1225 Balance 3078.538 / 3078.538 1217.589 / 1217.589 Weight 150 lb 149 lb 14.629 oz 174 lb 13.225 oz Intake & Output 01/16/24 01/17/24 01/18/24 01/19/24 23:59 23:59 23:59 23:59 Intake Total 303.751 / 303.751 Output Total 170 / 170 Balance 133.751 / 133.751 Weight 150 lb 150 lb 0.005 oz Microbiology Reports for the Last 24 Hours: Microbiology 01/18/24 23:15 Blood Blood Culture - Preliminary Gram Negative Rods 01/18/24 23:15 Blood Blood Culture - Preliminary Gram Negative Rods 01/19/24 06:45 Sputum - Endotracheal Tube Aspirate Gram Stain - Final 01/19/24 06:45 Sputum - Endotracheal Tube Aspirate Sputum Culture - Preliminary Gram Negative Rods 01/19/24 03:00 Urine,Clean Catch Urine Culture - Preliminary Gram Negative Rods Constitutional: Present severe distress Comment:: Intubated and Sedated Head: Present normocephalic and atraumatic Neck: Present normal inspection and trachea midline Respiratory: Present patient mechanically ventilated; Absent prolonged expiratory phase, rhonchi or wheezes Cardiac: Present S1/S2 and Tachycardia GI: Present soft; Absent distention or tenderness Skin: Present intact and cyanosis Neuro: Absent alert, awake or oriented x 3 Comment:: Intubated and sedated Extremities: Present normal inspection, edema and cyanosis; Absent clubbing Psychiatric: Present unable to assess Assessment and Plan *Assessment and plan (1) On mechanically assisted ventilation: Status: Acute Category: Medical Code(s): Z99.11 - Dependence on respirator [ventilator] status (2) Acute respiratory failure with hypoxia: Status: Acute Category: Medical Code(s): J96.01 - Acute respiratory failure with hypoxia Plan Patient intubated and sedated. Much of the history is obtained from chart review and patient family Ms. Carmichael is a 83-year-old female presented with abdominal discomfort diarrhea nausea vomiting, noted to have progressive worsening respiratory distress needing intubation and mechanical ventilatory support and pulmonary was called for further evaluation and management. Patient has been experiencing diarrhea and decreased p.o. intake for the last 3 to 4 days prior to admission. Afebrile. Leukopenia upon admission, improving. SHAUN with a BUN/creatinine of 65 and 2.40 with a GFR of 19. Estimated GFR within normal limits in January 2023. CT chest without contrast, bilateral lower lobe consolidative changes right greater than left. Respiratory viral PCR positive for enterorhinovirus Blood gas showed metabolic acidosis with respiratory compensation with a pH of 7.23, pCO2 of 28.5 and a pO2 of 266 and a PaO2 of 100%. Interval update: No acute respiratory vents overnight. Worsening oliguric SHAUN and metabolic acidosis. Blood sputum and urine cultures gram-negative rods, continue to receive Ertapenem. Prognosis diiscussed with the family regarding her worsening clinical situation, increasing pressor requirements and worsening renal function. Patient family wants the patient to be full code at this point of time and would like to pursue the possibility of dialysis. Recommend initiating transfer to higher level of care given we cannot provide dialysis at [facility]. Information conveyed to primary team to facilitate the Transfer. Plan: Hemodynamically unstable. Worsening pressor requirements now on norepinephrine of 20 mcg. Initiate vasopressin 0.04 VBG from this morning viewed, worsening AG and NAG metabolic acidosis. Administer 1 amp of bicarb and initiate bicarb drip 150 mEq in 1 L at 50 mL/h Patient also noted to have hypoglycemia which will manage by D10 drip. Will give one dose of gentamicin in the setting of worsening gram-negative bacteremia. Risks and benefits in the setting of worsening renal function explained to the family. Will continue ertapenem Follow with repeat blood cultures Follow-up with right upper extremity arterial Doppler F/U Serum Ammonia levels Will increase respiratory rate to 22 in the setting of worsening metabolic acidosis. -Continue sedation propofol and fentanyl. Will stop with fentanyl as needed given her altered mentation at this point of time. -Continue mechanical ventilator support, currently on PEEP of 5 FiO2 of 35% tidal volume of 420 and a rate of 22. Will continue hyperventilation to compensate for metabolic acidosis at this point of time. DuoNebs every [address] chest showed bilateral lower lobe changes right greater than left, likely atelectasis. Abdomen soft nondistended. Transaminitis, worsening. Follow with serum ammonia levels Renally dose medications. LR 500 bolus. Concerning for worsening renal function. Recommend transfer to higher level of care to facilitate dialysis as per patient's family's request - Continue mechanical ventilatory support - Continue AnalgoSedation with Propofol and Fentanyl with CPOT gal less than or euqal to 2 and RASS goal of to 2 (No need for deep sedation) - VAP bundle Recommend elevate head of the bed at 30 to 45 degrees Recommend oral care with chlorhexidne Recommend GI ulcer prophylaxis - Famotidine 20mg IV BID Recommend chemical DVT prophylaxis Total critical care time spent on this patient is 45 minutes managing acute hypoxic respiratory failure and shock needing mechanical ventilation. This time spent include reviewing test results including interpreting chest x-rays, labs and arterial blood gas, optimizing the ventilator settings,formulating plan of care, discussing the plan of care with the team and the nursing staff.
--- NOTE | 2024-01-20 09:33 | XR_ITS ---
FINAL REPORT CLINICAL HISTORY: MV COMPARISON: 01/19/2024 FINDINGS: SINGLE VIEW CHEST The heart is normal in size. The mediastinum is unremarkable. There are persistent bibasilar opacities, favor atelectasis. ET tube and NG tube remain in good position. There is no pneumothorax. IMPRESSION: Persistent bibasilar opacities, favor atelectasis. Reviewed, Interpreted and Dictated by Edwin Rincon III, MD Transcribed by Lucita King Authenticated and [facility] [place] [place]
[2024-01-20 10:24] LABS: VBG Oxygen Saturation 88.9 % (50-70); VBG PCO2 31.5 mmol/L (35-51); VBG PO2 65.8 mmol/L (28-40); VBG Total CO2 6.9 mmol/L (23-27)
[2024-01-20 10:31] LABS: Lactate Venous 8.2 mmol/L (0.4-2.0)
[2024-01-20] MEDS: SODIUM CHLORIDE 0.9% 10ML VIAL 10 ML IV (10:37)
[2024-01-20] MEDS: ERTAPENEM SODIUM 0.5 GM in 0.9 % SODIUM CHLORIDE 50 ML IV (10:37)
[2024-01-20] MEDS: PANTOPRAZOLE 40MG VIAL 40 MG IV (10:37)
[2024-01-20 10:52] LABS: Ammonia 92 umol/L (9-30); Glucose,Random 128 mg/dL (74-100)
[2024-01-20] MEDS: VASOPRESSIN 40 UNIT in 0.9 % SODIUM CHLORIDE 100 ML 6.12 UNIT IV (10:52)
[2024-01-20] MEDS: SODIUM BICARBONATE 150 MEQ in DEXTROSE 5 % IN WATER 1,000 ML 50 MEQ IV (10:56)
[2024-01-20] MEDS: SODIUM BICARB 8.4% 50ML SYRINGE (CRASH CART) 50 MEQ IV ×9 (11:25→16:17)
--- NOTE | 2024-01-20 12:14 | CA_ITS ---
FINAL REPORT CLINICAL HISTORY: S/P RIGHT RADIAL ART LINE REMOVAL,DIMINISHED CAP REFILL AND COOLNESS OF RIGHT ARM,PT IS INTUBATED AND MECHANICALLY VENTILATED,R/O ARTERIAL THROMBUS COMPARISON: None FINDINGS: Axial and color Doppler waveform evaluation of the right upper extremity was performed. Spectral analysis was performed. Subclavian: 70 Axilla: 122 Brachial proximal: 194 Brachial mid: 179 Brachial distal: 186 Radial Mid: 122 Radial distal: 155 Ulnar proximal: 73 Ulnar mid: 56 Ulnar distal: 86 IMPRESSION: Elevated waveforms of uncertain etiology. No evidence of stenosis. If indicated, CT angiogram may be helpful. Reviewed, Interpreted and Dictated by Edwin Rincon III, MD Transcribed by Charisse Dozier Authenticated and . [facility]
[2024-01-20] MEDS: NOREPINEPHRINE BITARTRATE/D5W 8 MG/250 ML PLAST..BAG 30 MG IV (13:11)
[2024-01-20] MEDS: GENTAMICIN SULFATE 300 MG in 0.9 % SODIUM CHLORIDE 100 ML 100 MG IV (13:13)
[2024-01-20 13:25] LABS: Adenovirus F 40/41, stool Not Detected (NotDetected); Astrovirus Not Detected (NotDetected); Campylobacter Not Detected (NotDetected); Clostridium Difficile A/B, PCR Not Detected (NotDetected); Cryptosporidium Not Detected (NotDetected); Cyclospora Cayetanesis Not Detected (NotDetected); Entamoeba histolytica Not Detected (NotDetected); Enteroaggregative E coli Not Detected (NotDetected); Enteropathogenic E coli Not Detected (NotDetected); Enterotoxigenic E coli Not Detected (NotDetected); Giardia lamblia Not Detected (NotDetected); Norovirus Not Detected (NotDetected); Plesimonas Shigalloides, PCR Not Detected (NotDetected); Rotavirus A Not Detected (NotDetected); Salmonella, PCR Not Detected (NotDetected); Sapovirus Not Detected (NotDetected); Shiga-like toxin E coli Not Detected (NotDetected); Shigella Enterovasive E coli Not Detected (NotDetected); Vibrio Cholerae Not Detected (NotDetected); Vibrio, PCR Not Detected (NotDetected); Yersinia Entercolitica, PCR Not Detected (NotDetected)
--- NOTE | 2024-01-20 13:30 | P.PN_ITS ---
Subjective Subjective Date: 01/20/24 Time: 13:30 Principal diagnosis: sepsis Interval history: 83 yo WF in bed. Intubated on Vent. Sedated with just fentanyl. Propafol stopped. recurrent Hypoglycemia LFT's worsening Renal functions elevated with Cr 2.6 with GFR 18 Rapid response called last night for possible arrhythmias. Telemetry reviewed, likely just artifact. Blood cultures show enterobacter and e. coli on levophed at 20 mcg and now Vasopressin for BP support. Exam Data for Last 24 hours Vital signs and Labs for Last 24 Hours: Temp Pulse Resp BP Pulse Ox O2 Del Method FiO2 96.6 F L 91 H 26 H 151/64 H 100 Mechanical Ventilation 35 01/20/24 12:00 01/20/24 12:00 01/20/24 12:00 01/20/24 12:00 01/20/24 12:00 01/20/24 12:00 01/20/24 12:00 Laboratory Results - last 24 hr 01/18/24 21:00: Hepatitis C Antibody Non reactive 01/19/24 14:07: POC Glucose 93 01/19/24 15:08: POC Glucose 159 H 01/19/24 16:57: POC Glucose 101 01/19/24 18:37: POC Glucose 93 01/19/24 21:17: POC Glucose 61 L 01/19/24 21:42: WBC 7.5, RBC 3.69 L, Hgb 11.8 L, Hct 36.4 L, MCV 98.7, MCH 31.9 H, MCHC 32.3, RDW 15.0, Plt Count 71 L D, MPV 10.8 H, Neut % (Auto) 81.6 H, Lymph % (Auto) 12.3, [place] % (Auto) 4.9, Eos % (Auto) 0.2, Baso % (Auto) 1.1, Neut # (Auto) 6.1, Lymph # (Auto) 0.9, [place] # (Auto) 0.4, Eos # (Auto) 0.0, Baso # (Auto) 0.1, Sodium 131 L, Potassium 5.6 H D, Chloride 108 H, Carbon Dioxide 9 L*, Anion Gap 19.6 H, BUN 71 H, Creatinine 2.80 H, Estimated Creat Clear 17, Estimated GFR 16 L*, Est GFR ( Amer) 20 L, Glucose 61 L D, Calcium 7.5 L, Magnesium 2.7 H D, Total Bilirubin 0.8, AST 925 H* D, ALT 289 H D, Alkaline Phosphatase 177 H, Troponin I 0.07 H, Total Protein 4.9 L, Albumin 2.3 L D, Glob ulin 2.6, Albumin/Globulin Ratio 0.9 L 01/19/24 22:03: ABG pH 7.22 L*, ABG pCO2 20.0 L, ABG pO2 61.6 L, ABG HCO3 8.0 L, ABG Total CO2 8.6 L, ABG O2 Saturation 90, ABG Base Excess -19.8 L 01/19/24 22:53: POC Glucose 203 H 01/20/24 01:24: Random Glucose 92, Lipase 57 01/20/24 03:09: POC Glucose 163 H 01/20/24 04:45: POC Glucose 101 01/20/24 05:47: WBC 10.1 D, RBC 3.01 L, Hgb 9.7 L D, Hct 29.9 L, MCV 99.6 H, MCH 32.0 H, MCHC 32.1, RDW 15.3, Plt Count 50 L D, MPV 11.3 H, Neut % (Auto) 77.1, Lymph % (Auto) 8.7 L, [place] % (Auto) 13.1 H, Eos % (Auto) 0.0 L, Baso % (Auto) 1.0, Neut # (Auto) 7.8, Lymph # (Auto) 0.9, [place] # (Auto) 1.3 H, Eos # (Auto) 0.0, Baso # (Auto) 0.1, Sodium 132 L, Potassium 4.9, Chloride 113 H, [place] bon Dioxide 10 L D, Anion Gap 13.9, BUN 63 H, Creatinine 2.60 H, Estimated Creat Clear 21, Estimated GFR 18 L*, Est GFR ( Amer) 21 L, Glucose 97 D, Calcium 6.4 L, Magnesium 3.1 H D, Total Bilirubin 0.7, AST 2506 H* D, ALT 871 H* , Alkaline Phosphatase 181 H, Total Protein 3.5 L D, Albumin 1.5 L D, Globulin 2.0, Albumin/Globulin Ratio 0.8 L 01/20/24 05:50: POC Glucose 104 01/20/24 08:37: VBG pH 6.90 L, VBG pCO2 31.5 L, VBG pO2 65.8 H, VBG HCO3 6.0 L, VBG Total CO2 6.9 L, VBG O2 Saturation 88.9 H, VBG Base Excess -27.0 L, VBG Lactic Acid 8.2 H 01/20/24 08:51: POC Glucose 128 H 01/20/24 10:18: Random Glucose 128 H, Ammonia 92 H I & O for Last 24 hours: Intake & Output 01/18/24 01/19/24 01/20/24 01/21/24 11:59 11:59 11:59 11:59 Intake Total 828.976 / 385.819 3440.463 / 6812.463 52.025 / 52.025 Output Total 265 / 265 1330 / 1330 Balance 563.976 / 176.410 3149.463 / 5482.463 52.025 / 52.025 Weight 150 lb 0.005 oz 174 lb 13.225 oz Microbiology Reports for the Last 24 Hours: Microbiology 01/19/24 06:45 Sputum - Endotracheal Tube Aspirate Gram Stain - Final 01/19/24 06:45 Sputum - Endotracheal Tube Aspirate Sputum Culture - Preliminary Gram Negative Rods 01/18/24 23:15 Blood Blood Culture - Preliminary Gram Negative Rods 01/18/24 23:15 Blood Blood Culture - Preliminary Gram Negative Rods 01/19/24 03:00 Urine,Clean Catch Urine Culture - Preliminary Gram Negative Rods *Routine Respiratory Exam Respiratory: Present patient mechanically ventilated *Routine Cardiovascular Exam Cardiovascular: Present RRR and tachycardia Progress Note: A&P Assessment and plan (1) On mechanically assisted ventilation: Status: Acute (2) Acute respiratory failure with hypoxia: Status: Acute (3) Gram negative sepsis: Status: Acute (4) E. coli UTI: Status: Acute (5) LV dysfunction: Status: Acute Assessment and Plan Assessment and Plan for All Diagnoses:: 1. Acute resp failure with hypoxia -intubated and mech vented -sedated with fentanyl -hypotension improved with levophed (weaning down) after addition of v asopressin 2. Sepsis, Diarrhea with SHAUN -sepsis with blood culture showing e. coli and enterobacter -on azithromycin and ertapenem -on IV fluids 3. Chronic A. fib/flutter with RVR -recurrent due to sepsis -use IV diltiazem if needed for rate control as BP allows -use lovenox (head CT negative for acute bleed) 4. Mild Cardiomyopathy on echo -likely due to sepsis -start GDMT when taking oral meds -consider cardiac MRI when awake, extubated and able to follow directions to assess for myocarditis 5. Worsening LFT's 6. Acute Kidney Injury, Cr 2.6 with GFR 18 -no improvement after net positive 6 L of fluid 7. Thrombocytopenia, plt 50,000 Poor prognosis discussed with family. They have requested transfer in case dialysis is needed. They expressed appreciation for everything we are doing.
[2024-01-20 13:34] LABS: Glucose,Random 78 mg/dL (74-100)
[2024-01-20] MEDS: DEXTROSE 50% 50ML SYRINGE (CRASH CART) 50 ML IV ×3 (13:35→16:01)
[2024-01-20 13:36] LABS: Occult Blood,Stool Positive (Negative)
[2024-01-20 14:07] LABS: POC Glucose,Bedside 124 (70-110)
[2024-01-20] MEDS: FUROSEMIDE 20 MG/2 ML VIAL IV (14:07)
--- NOTE | 2024-01-20 14:20 | ECG_ITS ---
APPROVED REPORT Exam: Resting ECG HR:49 bpm ECG Measurements Heart Rate 49 AXES QRSd 173 QRS -3 QT 458 T 69 QTc 429 Conclusion ATRIAL FIBRILLATION WITH SLOW VENTRICULAR RESPONSE LEFT BUNDLE BRANCH BLOCK [120+ ms QRS DURATION, 80+ ms Q/S IN V1/V2, 85+ ms R IN I/aVL/V5/V6] ABNORMAL ECG UNCONFIRMED REPORT Electronically signed by : Dakota Beebe MD 01/21/2024 20:55:55
[2024-01-20 14:26] LABS: Reflex Lactic Add Lactic Reflex
[2024-01-20 14:32] LABS: ABG Base Excess -2.3 mmol/L (-2.4-2.3); ABG HCO3 21.7 mmhg (22.0-26.0); ABG Oxygen Saturation 99 % (90-100); ABG PCO2 32.3 mmhg (35.0-45.0); ABG PH 7.45 mmol/L (7.35-7.45); ABG PO2 159.5 mmhg (80-100); ABG TCO2 22.7 mmhg (23-27)
[2024-01-20 14:36] LABS: Oxygen 100% %; PEEP 5; Tidal Volume 420; Vent Rate 22
[2024-01-20 14:37] LABS: Allen's Test Patient Unable; Source Left Radial
--- NOTE | 2024-01-20 14:54 | ECG_ITS ---
APPROVED REPORT Exam: Resting ECG HR:79 bpm ECG Measurements Heart Rate 79 AXES DC 205 P 23 QRSd 121 QRS 32 QT 349 T 64 QTc 384 Conclusion SINUS RHYTHM SEPTAL MYOCARDIAL INFARCTION , OF INDETERMINATE AGE [40+ ms Q WAVE IN V1/V2] ABNORMAL ECG UNCONFIRMED REPORT Electronically signed by : Dakota Beebe MD 01/21/2024 20:55:04
--- NOTE | 2024-01-20 15:15 | EXP.DC.SUM ---
General Admission date:: 01/18/24 HPI HPI HPI: This 83-year-old female presented to the [facility] emergency department with c/o abdominal pain, nausea, and diarrhea for the last 2 days. She was actually seen in ER 01/15 with c/o leg pain and swelling, more right than left. Subsequently she developed the diarrhea, with multiple dark and watery stools and abdominal pain. She denied definitive hematochezia, melena or hematemesis. She denied fever, chills, chest pain, or shortness of breath. She denied urinary type symptomatology, and denied any vomiting. Patient has been taking loperamide with little to no relief of diarrhea. She denied any recent antibiotic use. Since her 01/15 ER visit she has been taking p.o. oxycodone but has only taken this medication twice with improvement in leg pain. Other past medical history consistent with GERD/Garnica's esophagus,. She is a former smoker. She has atrial fibrillation and is on anticoagulation therapy with Eliquis. She has chronic lymphedema, hyperlipidemia, osteoarthritis, hypothyroidism, and hypertension. She was admitted with diarrhea and with SHAUN: BUN=66/ creat=2.5/ GFR=18. Lactic acid was elevated. At 4:00 AM the patient started to decompensate. BS was found to be 41 (no hx of diabetes or diabetic medication). D50 was given but the patient developed hypotension and shortness of breath. Rapid Response was initiated with the patient receiving immediate attention from ER MD, Dr. Eileen Rodriguez. who intubated the patient, placed a femoral deep line and an arterial line. See Dr. Rodriguez's detailed note. Dr. Lane was also present at bedside. Blood gases showed the patient acidotic at 7.2, with subsequnt post intubation gas at 7.23. Dr. Rodriguez was concerned about cardiac function on bedside US evaluation. EKG showed A-fib. Troponins are normal. CT of the chest for PE, and for head are pending. Hospital Course Hospital Course Hospital Course: #Mechanical ventilation #Septic shock #UTI #Ecoli sepsis, bacteremia #ATN #Severe hyperkalemia, lactic acidosis #Anuria Due to rapidly deteriorating clinical status in the setting of gram negative sepsis/bacteremia requiring 2 IV pressors and worsening ATN, anuria, lactic acidosis, hyperkalemia necessating dialysis, decision was made to transfer patient to [facility] who graciously accepted patient. Unfortunately, due to ATN and thus severe hyperkalemia > 7 and lactic acidosis > 15, patient had multiple rapid responses which were responsive to bicarb amp boluses. However, patient also coded requiring CPR, epinephrine, and again bicarb amps which achieves ROSC. Will continue IV ertepenem, azithromycin, lovephed, vasopressin. Patient will be expeditiously transferred via airlift given ciritical state. Exam Data for Last 24 hours Vital signs and Labs for Last 24 Hours: Temp Pulse Resp BP Pulse Ox O2 Del Method FiO2 96.6 F L 95 H 26 H 151/64 H 100 Mechanical Ventilation 35 01/20/24 12:00 01/20/24 12:10 01/20/24 12:00 01/20/24 12:00 01/20/24 12:10 01/20/24 12:10 01/20/24 12:10 Laboratory Results - last 24 hr 01/18/24 13:15: Stool Occult Blood Positive A 01/18/24 21:00: Hepatitis C Antibody Non reactive 01/19/24 15:08: POC Glucose 159 H 01/19/24 16:57: POC Glucose 101 01/19/24 18:37: POC Glucose 93 01/19/24 21:17: POC Glucose 61 L 01/19/24 21:42: WBC 7.5, RBC 3.69 L, Hgb 11.8 L, Hct 36.4 L, MCV 98.7, MCH 31.9 H, MCHC 32.3, RDW 15.0, Plt Count 71 L D, MPV 10.8 H, Neut % (Auto) 81.6 H, Lymph % (Auto) 12.3, [place] % (Auto) 4.9, Eos % (Auto) 0.2, Baso % (Auto) 1.1, Neut # (Auto) 6.1, Lymph # (Auto) 0.9, [place] # (Auto) 0.4, Eos # (Auto) 0.0, Baso # (Auto) 0.1, Sodium 131 L, Potassium 5.6 H D, Chloride 108 H, Carbon Dioxide 9 L*, Anion Gap 19.6 H, BUN 71 H, Creatinine 2.80 H, Estimated Creat Clear 17, Estimated GFR 16 L*, Est GFR ( Amer) 20 L, Glucose 61 L D, Calcium 7.5 L, Magnesium 2.7 H D, Total Bilirubin 0.8, AST 925 H* D, ALT 289 H D, Alkaline Phosphatase 177 H, Troponin I 0.07 H, Total Protein 4.9 L, Albumin 2.3 L D, Globulin 2.6, Albumin/Globulin Ratio 0.9 L 01/19/24 22:03: ABG pH 7.22 L*, ABG pCO2 20.0 L, ABG pO2 61.6 L, ABG HCO3 8.0 L, ABG Total CO2 8.6 L, ABG O2 Saturation 90, ABG Base Excess -19.8 L 01/19/24 22:53: POC Glucose 203 H 01/20/24 01:24: Random Glucose 92, Lipase 57 01/20/24 03:09: POC Glucose 163 H 01/20/24 04:45: POC Glucose 101 01/20/24 05:47: WBC 10.1 D, RBC 3.01 L, Hgb 9.7 L D, Hct 29.9 L, MCV 99.6 H, MCH 32.0 H, MCHC 32.1, RDW 15.3, Plt Count 50 L D, MPV 11.3 H, Neut % (Auto) 77.1, Lymph % (Auto) 8.7 L, [place] % (Auto) 13.1 H, Eos % (Auto) 0.0 L, Baso % (Auto) 1.0, Neut # (Auto) 7.8, Lymph # (Auto) 0.9, [place] # (Auto) 1.3 H, Eos # (Auto) 0.0, Baso # (Auto) 0.1, Sodium 132 L, Potassium 4.9, Chloride 113 H, Carbon Dioxide 10 L D, Anion Gap 13.9, BUN 63 H, Creatinine 2.60 H, Estimated Creat Clear 21, Estimated GFR 18 L*, Est GFR ( Amer) 21 L, Glucose 97 D, Calcium 6.4 L, Magnesium 3.1 H D, Total Bilirubin 0.7, AST 2506 H* D, ALT 871 H*, Alkaline Phosphatase 181 H, Total Protein 3.5 L D, Albumin 1.5 L D, Globulin 2.0, Albumin/Globulin Ratio 0.8 L 01/20/24 05:50: POC Glucose 104 01/20/24 08:37: VBG pH 6.90 L, VBG pCO2 31.5 L, VBG pO2 65.8 H, VBG HCO3 6.0 L, VBG Total CO2 6.9 L, VBG O2 Saturation 88.9 H, VBG Base Excess -27.0 L, VBG Lactic Acid 8.2 H 01/20/24 08:51: POC Glucose 128 H 01/20/24 10:18: Random Glucose 128 H, Ammonia 92 H 01/20/24 13:13: Random Glucose 78 01/20/24 13:59: POC Glucose 124 H 01/20/24 14:30: Specimen Source Left radial, O2 % 100%, ABG pH 7.45, ABG pCO2 32.3 L, ABG pO2 159.5 H, ABG HCO3 21.7 L, ABG Total CO2 22.7 L, ABG O2 Saturation 99, ABG Base Excess -2.3, Merrick Test Patient unable, Vent Rate 22, Tidal Volume 420, PEEP 5 I & O for Last 24 hours: Intake & Output 01/17/24 01/18/24 01/19/24 01/20/24 23:59 23:59 23:59 23:59 Intake Total 3438.538 / 3438.538 4254.926 / 4254.926 Output Total 360 / 360 1235 / 1235 Balance 3078.538 / 3078.538 3019.926 / 3019.926 Weight 68.039 kg 68 kg 79.3 kg Microbiology Reports for the Last 24 Hours: Microbiology 01/19/24 06:45 Sputum - Endotracheal Tube Aspirate Gram Stain - Final 01/19/24 06:45 Sputum - Endotracheal Tube Aspirate Sputum Culture - Preliminary Gram Negative Rods 01/18/24 23:15 Blood Blood Culture - Preliminary Gram Negative Rods 01/18/24 23:15 Blood Blood Culture - Preliminary Gram Negative Rods 01/19/24 03:00 Urine,Clean Catch Urine Culture - Preliminary Gram Negative Rods *Routine HEENT Exam Head: Present normocephalic Eye: Present EOMI and PERRL ENT: Present mucous membranes moist *Routine Neck Exam Neck: Present supple; Absent lymphadenopathy *Routine Respiratory Exam Respiratory: Present patient mechanically ventilated *Routine Cardiovascular Exam Cardiovascular: Present RRR and tachycardia *Routine Abdominal Exam Abdominal: Present soft and normoactive bowel sounds; Absent tenderness *Routine Extremities Exam Extremities: Absent cyanosis, clubbing or edema *Routine Skin Exam Skin: Absent warm or rash Comments: Mottled skin diffusely *Routine Neurological Exam Neurological: Present alert and oriented X3 Results Data Completed and Pending Labs on day of discharge: Labs from last 24 hours 01/20/24 01/20/24 01/20/24 14:30 13:59 13:13 WBC RBC Hgb Hct MCV MCH MCHC RDW Plt Count MPV Neut % (Auto) Lymph % (Auto) [place] % (Auto) Eos % (Auto) Baso % (Auto) Neut # (Auto) Lymph # (Auto) [place] # (Auto) Eos # (Auto) Baso # (Auto) Specimen Source Left radial O2 % 100% ABG pH 7.45 ABG pCO2 32.3 L ABG pO2 159.5 H ABG HCO3 21.7 L ABG Total CO2 22.7 L ABG O2 Saturation 99 ABG Base Excess -2.3 Merrick Test Patient unable VBG pH VBG pCO2 VBG pO2 VBG HCO3 VBG Total CO2 VBG O2 Saturation VBG Base Excess VBG Lactic Acid Vent Rate 22 Tidal Volume 420 PEEP 5 Sodium Potassium Chloride Carbon Dioxide Anion Gap BUN Creatinine Estimated Creat Clear Estimated GFR Est GFR ( Amer) Glucose POC Glucose 124 H Random Glucose 78 Calcium Magnesium Total Bilirubin AST ALT Alkaline Phosphatase Ammonia Troponin I Total Protein Albumin Globulin Albumin/Globulin Ratio Lipase Stool Occult Blood Hepatitis C Antibody 01/20/24 01/20/24 01/20/24 10:18 08:51 08:37 WBC RBC Hgb Hct MCV MCH MCHC RDW Plt Count MPV Neut % (Auto) Lymph % (Auto) [place] % (Auto) Eos % (Auto) Baso % (Auto) Neut # (Auto) Lymph # (Auto) [place] # (Auto) Eos # (Auto) Baso # (Auto) Specimen Source O2 % ABG pH ABG pCO2 ABG pO2 ABG HCO3 ABG Total CO2 ABG O2 Saturation ABG Base Excess Merrick Test VBG pH 6.90 L VBG pCO2 31.5 L VBG pO2 65.8 H VBG HCO3 6.0 L VBG Total CO2 6.9 L VBG O2 Saturation 88.9 H VBG Base Excess -27.0 L VBG Lactic Acid 8.2 H Vent Rate Tidal Volume PEEP Sodium Potassium Chloride Carbon Dioxide Anion Gap BUN Creatinine Estimated Creat Clear Estimated GFR Est GFR ( Amer) Glucose POC Glucose 128 H Random Glucose 128 H Calcium Magnesium Total Bilirubin AST ALT Alkaline Phosphatase Ammonia 92 H Troponin I Total Protein Albumin Globulin Albumin/Globulin Ratio Lipase Stool Occult Blood Hepatitis C Antibody 01/20/24 01/20/24 01/20/24 05:50 05:47 04:45 WBC 10.1 D RBC 3.01 L Hgb 9.7 L D Hct 29.9 L MCV 99.6 H MCH 32.0 H MCHC 32.1 RDW 15.3 Plt Count 50 L D MPV 11.3 H Neut % (Auto) 77.1 Lymph % (Auto) 8.7 L [place] % (Auto) 13.1 H Eos % (Auto) 0.0 L Baso % (Auto) 1.0 Neut # (Auto) 7.8 Lymph # (Auto) 0.9 [place] # (Auto) 1.3 H Eos # (Auto) 0.0 Baso # (Auto) 0.1 Specimen Source O2 % ABG pH ABG pCO2 ABG pO2 ABG HCO3 ABG Total CO2 ABG O2 Saturation ABG Base Excess Merrick Test VBG pH VBG pCO2 VBG pO2 VBG HCO3 VBG Total CO2 VBG O2 Saturation VBG Base Excess VBG Lactic Acid Vent Rate Tidal Volume PEEP Sodium 132 L Potassium 4.9 Chloride 113 H Carbon Dioxide 10 L D Anion Gap 13.9 BUN 63 H Creatinine 2.60 H Estimated Creat Clear 21 Estimated GFR 18 L* Est GFR ( Amer) 21 L Glucose 97 D POC Glucose 104 101 Random Glucose Calcium 6.4 L Magnesium 3.1 H D Total Bilirubin 0.7 AST 2506 H* D ALT 871 H* Alkaline Phosphatase 181 H Ammonia Troponin I Total Protein 3.5 L D Albumin 1.5 L D Globulin 2.0 Albumin/Globulin Ratio 0.8 L Lipase Stool Occult Blood Hepatitis C Antibody 01/20/24 01/20/24 01/19/24 03:09 01:24 22:53 WBC RBC Hgb Hct MCV MCH MCHC RDW Plt Count MPV Neut % (Auto) Lymph % (Auto) [place] % (Auto) Eos % (Auto) Baso % (Auto) Neut # (Auto) Lymph # (Auto) [place] # (Auto) Eos # (Auto) Baso # (Auto) Specimen Source O2 % ABG pH ABG pCO2 ABG pO2 ABG HCO3 ABG Total CO2 ABG O2 Saturation ABG Base Excess Merrick Test VBG pH VBG pCO2 VBG pO2 VBG HCO3 VBG Total CO2 VBG O2 Saturation VBG Base Excess VBG Lactic Acid Vent Rate Tidal Volume PEEP Sodium Potassium Chloride Carbon Dioxide Anion Gap BUN Creatinine Estimated Creat Clear Estimated GFR Est GFR ( Amer) Glucose POC Glucose 163 H 203 H Random Glucose 92 Calcium Magnesium Total Bilirubin AST ALT Alkaline Phosphatase Ammonia Troponin I Total Protein Albumin Globulin Albumin/Globulin Ratio Lipase 57 Stool Occult Blood Hepatitis C Antibody 01/19/24 01/19/24 01/19/24 22:03 21:42 21:17 WBC 7.5 RBC 3.69 L Hgb 11.8 L Hct 36.4 L MCV 98.7 MCH 31.9 H MCHC 32.3 RDW 15.0 Plt Count 71 L D MPV 10.8 H Neut % (Auto) 81.6 H Lymph % (Auto) 12.3 [place] % (Auto) 4.9 Eos % (Auto) 0.2 Baso % (Auto) 1.1 Neut # (Auto) 6.1 Lymph # (Auto) 0.9 [place] # (Auto) 0.4 Eos # (Auto) 0.0 Baso # (Auto) 0.1 Specimen Source O2 % ABG pH 7.22 L* ABG pCO2 20.0 L ABG pO2 61.6 L ABG HCO3 8.0 L ABG Total CO2 8.6 L ABG O2 Saturation 90 ABG Base Excess -19.8 L Merrick Test VBG pH VBG pCO2 VBG pO2 VBG HCO3 VBG Total CO2 VBG O2 Saturation VBG Base Excess VBG Lactic Acid Vent Rate Tidal Volume PEEP Sodium 131 L Potassium 5.6 H D Chloride 108 H Carbon Dioxide 9 L* Anion Gap 19.6 H BUN 71 H Creatinine 2.80 H Estimated Creat Clear 17 Estimated GFR 16 L* Est GFR ( Amer) 20 L Glucose 61 L D POC Glucose 61 L Random Glucose Calcium 7.5 L Magnesium 2.7 H D Total Bilirubin 0.8 AST 925 H* D ALT 289 H D Alkaline Phosphatase 177 H Ammonia Troponin I 0.07 H Total Protein 4.9 L Albumin 2.3 L D Globulin 2.6 Albumin/Globulin Ratio 0.9 L Lipase Stool Occult Blood Hepatitis C Antibody 01/19/24 01/19/24 01/19/24 18:37 16:57 15:08 WBC RBC Hgb Hct MCV MCH MCHC RDW Plt Count MPV Neut % (Auto) Lymph % (Auto) [place] % (Auto) Eos % (Auto) Baso % (Auto) Neut # (Auto) Lymph # (Auto) [place] # (Auto) Eos # (Auto) Baso # (Auto) Specimen Source O2 % ABG pH ABG pCO2 ABG pO2 ABG HCO3 ABG Total CO2 ABG O2 Saturation ABG Base Excess Merrick Test VBG pH VBG pCO2 VBG pO2 VBG HCO3 VBG Total CO2 VBG O2 Saturation VBG Base Excess VBG Lactic Acid Vent Rate Tidal Volume PEEP Sodium Potassium Chloride Carbon Dioxide Anion Gap BUN Creatinine Estimated Creat Clear Estimated GFR Est GFR ( Amer) Glucose POC Glucose 93 101 159 H Random Glucose Calcium Magnesium Total Bilirubin AST ALT Alkaline Phosphatase Ammonia Troponin I Total Protein Albumin Globulin Albumin/Globulin Ratio Lipase Stool Occult Blood Hepatitis C Antibody 01/18/24 01/18/24 21:00 13:15 WBC RBC Hgb Hct MCV MCH MCHC RDW Plt Count MPV Neut % (Auto) Lymph % (Auto) [place] % (Auto) Eos % (Auto) Baso % (Auto) Neut # (Auto) Lymph # (Auto) [place] # (Auto) Eos # (Auto) Baso # (Auto) Specimen Source O2 % ABG pH ABG pCO2 ABG pO2 ABG HCO3 ABG Total CO2 ABG O2 Saturation ABG Base Excess Merrick Test VBG pH VBG pCO2 VBG pO2 VBG HCO3 VBG Total CO2 VBG O2 Saturation VBG Base Excess VBG Lactic Acid Vent Rate Tidal Volume PEEP Sodium Potassium Chloride Carbon Dioxide Anion Gap BUN Creatinine Estimated Creat Clear Estimated GFR Est GFR ( Amer) Glucose POC Glucose Random Glucose Calcium Magnesium Total Bilirubin AST ALT Alkaline Phosphatase Ammonia Troponin I Total Protein Albumin Globulin Albumin/Globulin Ratio Lipase Stool Occult Blood Positive A Hepatitis C Antibody Non reactive Preliminary micro results at discharge 01/19/24 06:45 Sputum Culture - Preliminary Sputum - Endotracheal Tube Aspirate Gram Negative Rods 01/18/24 23:15 Blood Culture - Preliminary Blood Gram Negative Rods 01/18/24 23:15 Blood Culture - Preliminary Blood Gram Negative Rods 01/19/24 03:00 Urine Culture - Preliminary Urine,Clean Catch Gram Negative Rods DS: Diagnosis Discharge Diagnosis (1) On mechanically assisted ventilation: Status: Acute Code(s): Z99.11 - Dependence on respirator [ventilator] status (2) Acute respiratory failure with hypoxia: Status: Acute Code(s): J96.01 - Acute respiratory failure with hypoxia (3) Gram negative sepsis: Status: Acute Code(s): A41.50 - Gram-negative sepsis, unspecified (4) E. coli UTI: Status: Acute Code(s): N39.0 - Urinary tract infection, site not specified; B96.20 - Unspecified Escherichia coli [E. coli] as the cause of diseases classified elsewhere (5) LV dysfunction: Status: Acute Code(s): I51.9 - Heart disease, unspecified Meds Home Medications and Allergies Home Medications ?Medication ?Instructions ?Recorded ?Confirmed ?Type atorvastatin 20 mg tablet 20 mg PO HS 09/22/17 01/19/24 History dicyclomine 10 mg capsule 10 mg PO BID 09/22/17 01/19/24 History lisinopril 20 mg tablet 20 mg PO HS 09/22/17 01/19/24 History multivitamin (Daily Multi-Vitamin 1 tab PO QAM 09/22/17 01/19/24 History tablet) calcium 200 mg (as 1 each PO BID 10/13/17 01/19/24 History citrate)-vitamin D3 6.25 mcg (250 unit) tablet furosemide 20 mg tablet 20 mg PO DAILYP PRN Edema 12/02/19 01/19/24 History alendronate 70 mg tablet 70 mg PO WEEKLY 03/16/20 01/19/24 History verapamil 240 mg tablet,extended 360 mg PO DAILY 03/30/21 01/19/24 History release levothyroxine 25 mcg tablet 25 mcg PO AM 09/21/21 01/19/24 History pantoprazole 40 mg tablet,delayed 40 mg PO DAILY #90 tabs 10/13/23 01/19/24 Rx release apixaban 5 mg tablet (Eliquis) 5 mg PO BID 01/19/24 01/19/24 History diclofenac sodium 75 mg 75 mg PO BIDP PRN Pain (Scale 01/19/24 01/19/24 History tablet,delayed release Score 7-10) omega-3 fatty acids 1,000 mg 1,000 mg PO DAILY 01/19/24 01/19/24 History capsule oxycodone 5 mg tablet 5 mg PO Q8HP PRN Pain (Scale Score 01/19/24 01/19/24 History 4-6) New Prescriptions to Start Prescriptions: Allergies Allergy/AdvReac Type Severity Reaction Status Date / Time No Known Allergies Allergy Verified 12/04/23 09:57 Discharge Plan Disposition Patient Disposition: Xfer Short-Term Hosp Condition: Critical Discharge Order Discharge Orders: Discharge Order (Routine); Ordered 01/20/24 Ordered By: Inder Calix Follow up Plan Follow up with: Nathan Benavidez MD [Primary Care Provider] - Enter time for follow up Prescriptions/Medication Reconciliation: No Action furosemide 20 mg tablet 20 mg PO DAILYP PRN (Reason: Edema) levothyroxine 25 mcg tablet 25 mcg PO AM dicyclomine 10 mg capsule 10 mg PO BID lisinopril 20 mg tablet 20 mg PO HS atorvastatin 20 mg tablet 20 mg PO HS multivitamin [Daily Multi-Vitamin] tablet 1 tab PO QAM verapamil 240 mg tablet extended release 360 mg PO DAILY pantoprazole 40 mg tablet,delayed release (DR/EC) 40 mg PO DAILY Qty: 90 3RF calcium citrate-vitamin D3 1 EACH tablet 1 each PO BID alendronate 70 MG tablet 70 mg PO WEEKLY Eliquis 5 mg tablet 5 mg PO BID diclofenac sodium 75 mg tablet,delayed release (DR/EC) 75 mg PO BIDP PRN (Reason: Pain (Scale Score 7-10)) omega-3 fatty acids 1,000 mg Capsule 1,000 mg PO DAILY oxycodone 5 mg tablet 5 mg PO Q8HP PRN (Reason: Pain (Scale Score 4-6)) Problem Reconciliation Problems Reviewed?: Yes Patient Discharge Instructions Stand Alone Forms: Transfer Record Patient Instructions: Ventilator-Associated Pneumonia, DI for Acute Kidney Injury, Catheter-Associated Urinary Tract Infection Print Language: Romansh Providers Primary Care Provider: Nathan Benavidez Admit Provider: Sage Lane Attending Provider: Sage Lane
[2024-01-20 15:20] LABS: Basophils # 0.1 K/mm3 (0-0.2); Basophils % 1.3 % (0.1-2.0); Eosinophils % 0.2 % (0.1-12.0); Lymphocytes # 1.6 K/mm3 (0.7-4.5); Lymphocytes % 19.1 % (10-50); Mean Corpuscular HGB Conc 31.1 g/dL (31.8-35.4); Mean Corpuscular Hemoglobin 32.8 pg (27.0-31.2); Mean Corpuscular Volume 105.6 fl (81-99); Mean Platelet Volume 11.8 fl (7.4-10.4); Monocytes # 0.7 K/mm3 (0.1-1.0); Monocytes % 8.1 % (1.7-9.3); Neutrophils % 71.3 % (37.0-80.0); Red Blood Count 1.96 M/mm3 (4.20-5.40); Red Cell Distribution Width 16.3 % (11.5-17.5); White Blood Count 8.4 K/mm3 (4.8-10.8)
[2024-01-20 15:24] LABS: Albumin/Globulin Ratio 0.7 (1.1-1.8); Alkaline Phosphatase 172 U/L (38-126); Bilirubin,Total 0.5 mg/dl (0.2-1.3); Blood Urea Nitrogen 57 mg/dl (7-17); Calcium 6.3 mg/dl (8.4-10.2); Chloride 106 mmol/L (98-107); Globulin 1.4 g/dL (1.3-3.2); Glucose 257 mg/dl (74-100); Sodium 139 mmol/L (136-145); Total Protein,Serum 2.4 g/dl (6.3-8.2)
[2024-01-20 15:31] LABS: Creatinine Clearance Estimated 21 mL/min (50-200); Estimated Glomerular Filt Rate 18 ml/min (>60); GFR (African American) 21 ML/MIN (>60)
[2024-01-20] MEDS: EPINEPHrine 5 MG in 0.9 % SODIUM CHLORIDE 250 ML 6.12 MG IV (15:35)
[2024-01-20 15:37] LABS: Alanine Aminotransferase 1085 U/L (12-78)
[2024-01-20 15:38] LABS: Hematocrit 20.7 % (37.0-47.0); Platelet Count 32 K/mm3 (142-424)
[2024-01-20 15:39] LABS: Hemoglobin 6.4 g/dL (12.2-16.2)
--- NOTE | 2024-01-20 15:41 | DIET.NUTRFU ---
start TF if intubated more then 24 hours:pulmocare 20ml/hr with increase to 40ml/hr to provide 1440kcal, 60gm protein with 754ml free water. flush is dependent on IVF and calories maybe adjusted d/t propofol dose. Patient continues to be intubated, plans to transfer for dialysis. If stays will need to start TF for nutrition. Nursing gave 1 L NS bolus, keep D5 NS going @ 200ml/hr- earlier today. She had low BS noted 01/18 61L, last one noted today at 14:30 was 257H. Will continue to monitor.
[2024-01-20 15:42] LABS: ABG HCO3 4.6 mmhg (22.0-26.0); ABG PO2 81.1 mmhg (80-100); ABG TCO2 5.2 mmhg (23-27)
[2024-01-20 15:43] LABS: ABG Oxygen Saturation 94 % (90-100); Allen's Test Patient Unable; Oxygen 100% %; PEEP 5; Source Left Radial; Tidal Volume 420; Vent Rate 22
[2024-01-20] MEDS: EPINEPHrine 0.1 MG/ML 10ML SYRINGE (CRASH CART) 1 MG IV ×4 (15:46→15:50)
[2024-01-20] MEDS: CALCIUM CHLORIDE 1GM/10ML SYRINGE (CRASH CART) 1 GM IV ×4 (15:47→16:12)
[2024-01-20] MEDS: humaLOG 100 UNITS/ML 10ML VIAL (SSI) 15 UNIT SUBCUT (15:53)
[2024-01-20 15:58] LABS: Troponin I 0.04 ng/ml (0.00-0.034)
[2024-01-20 16:03] LABS: VBG Base Excess -14.6 mmol/L (-2.4-2.3); VBG HCO3 16.3 mmol/L (23-30); VBG Oxygen Saturation 82.1 % (50-70); VBG PO2 53.3 mmol/L (28-40); VBG Total CO2 18.2 mmol/L (23-27)
[2024-01-20 16:04] LABS: Lactate Venous 19.6 mmol/L (0.4-2.0); VBG PCO2 63.7 mmol/L (35-51); VBG PH 7.03 mmol/L (7.31-7.41)
[2024-01-20] MEDS: ALBUTEROL 0.083% 2.5 MG/3 ML NEB 20 MG IH (16:07)
[2024-01-20] MEDS: FUROSEMIDE 100MG/10ML VIAL 160 MG IV (16:09)
[2024-01-20 16:20] LABS: Aspartate Amino Transferase 3635 U/L (14-36)
[2024-01-20 17:02] LABS: Carbon Dioxide 15 mmol/L (22.0-30.0)
[2024-01-20 17:38] LABS: POC Glucose,Bedside 128 (70-110)
--- NOTE | 2024-01-20 18:00 | PC.WOUNDNOTE ---
1414 call received from kitchen steward/stewardess that pt had a bed at in the [facility] ICU. Bed 7 1415 rhythm change noted. no answer at Dr Sanchez office, notified Dr Calix face to face, phoned dr reyna and notified 1415 called RT for Stat ekg r/t rhythm change 1416 dr Calix at bedside 1417 bp 78/22 hr 66 1420 rapid response called 1420 RT at bedside, ekg obtained, low voltage rhythm, afib w/ svr, blocks noted. 1421 2 amps bicarb ordered 1422 81/25 hr 84 1425 fsbs 70 1429 1 amp of d50
[2024-01-20 18:29] LABS: POC Glucose,Bedside 70 (70-110)
--- NOTE | 2024-01-20 18:37 | PC.NURSE ---
1505 report called to [facility] . 1530 notified that pt bp beginning to drop, received order for epi drip 1531 k+ 8.0 notified face to face. orders entered by 1534 epi drip started at 10mcg 1535 air methods crew in room report given on pt by Sonal Johns RN 1545 pulse lost while [employer] methods crew was transfering drips/monitors from [facility] to their supplies 1545 compressions started 1545 new zoll pads placed on patient 1547 2 gram calcium given 1549 2 amps bicarb given 1550 2 Epi given 1551 2 amps bicarb given 1552 pulse check, pulse present 1553 15 units lispro insulin given 1553 fsbs 128 1601 1 amp d50 1604 8 albuterol nebs given 1606 Art line placed by dr Sanchez 1609 160 mg iv lasix 1612 2 gram calcium 1615 159/71 hr 86 rr 22 95 on 100% fio2 End tital co2 14 (art line pressure 210/82) 1615 epi drip titrated to 5mcg 1617 2 amps bicarb 1618 epi drip stopped (art line pressure 200/89) 1619 1 unit o+ prbc admin per air methods 1623 levo titrated to 25 mcg (previously infusing at 30mcg since 1530) 1626 180/46 art line 1631 epi restarted at 10mcg r/t hr dropping from 60's to 30's 1632 levo decreased to 15mcg 1632 1 unit of plasma started by air methods 1635 hr 31 epi increased to 15mcg 1639 levo increased to 30mcg r/t bp 70/30 1645 drips and vent transferred over to air methods equipment 1707 pt left floor with pt 1715 called report to Pranay at MICU at as pt bed assignment had changed
--- NOTE | 2024-01-20 21:55 | EXP.EVENT.NO ---
I responded to CODE BLUE called overhead at 1545. Patient's admitting team not present, however code was being run by the hospitalist, Dr. Calix. Flight crew was at bedside ready to transport the patient to [facility] once stabilized. Ultimately under direction of Dr. Calix, ROSC achieved. I assisted in care by placing an arterial line in the left wrist for continued monitoring and frequent ABGs. Patient critically ill on 3 pressors at this time with worsening lactic acidosis. Please see procedure details below for further documentation. Please see Dr. Calix's documentation for code details. Radial Arterial Line Procedure Note The procedure was emergent, the patient was unable to provide consent, and a designee was not immediately available. SUMMARY: A time out was performed. My hands were washed immediately prior to the procedure. I wore sterile gloves throughout the procedure. After an Merrick test was performed to ensure adequate perfusion, the L wrist was prepped using chlorhexidine scrub and draped in sterile fashion. Ultrasound guidance and real-time was used. A needle was inserted into the radial artery. Arterial blood was seen to pulsate in the flash chamber. The internal guidewire was advanced easily into the radial artery. The catheter was then advanced over the wire and the needle and wire were withdrawn. The catheter was sutured in place. A sterile opsite was placed over the catheter at the insertion site. The patient tolerated the procedure without any hemodynamic compromise. At the time of procedure completion, the catheter was connected to the youth nutritional monitor and calibrated. Appropriate waveform and blood pressure tracing was observed.
== END 2024-01-20 17:07 | disposition short-term general hospital (02) | DRG 682 ==
LOC: ER 22:50 → 2ND 23:03
PROVIDERS: Internal Medicine Adolescent Medicine; Internal Medicine Pulmonary Disease; Nurse Practitioner Family; Physician Assistant; Student in an Organized Health Care Education/Training Program; Admitting Provider Family Medicine; Emergency Provider Emergency Medicine; PCP Family Medicine; Visit Provider Family Medicine
DX: N17.9 Acute kidney failure, unspecified (principal); A41.51 Sepsis due to Escherichia coli [E. coli]; I49.01 Ventricular fibrillation; J96.01 Acute respiratory failure with hypoxia; R65.21 Severe sepsis with septic shock; N39.0 Urinary tract infection, site not specified; R55 Syncope and collapse; R19.7 Diarrhea, unspecified; I89.0 Lymphedema, not elsewhere classified; I10 Essential (primary) hypertension; E78.2 Mixed hyperlipidemia; Z87.891 Personal history of nicotine dependence; K21.9 Gastro-esophageal reflux disease without esophagitis; M79.604 Pain in right leg; K80.20 Calculus of gallbladder without cholecystitis without obstruction; I48.0 Paroxysmal atrial fibrillation; Z79.01 Long term (current) use of anticoagulants; Z79.899 Other long term (current) drug therapy; E16.2 Hypoglycemia, unspecified; E16.A3 Hypoglycemia level 3
CPT/HCPCS: 36415; 70450; 71045; 71250; 74176; 76705; 80053; 81001; 82140; 82272; 82803; 82947; 82962; 83605; 83690; 83735; 84484; 85007; 85025; 85610; 85730; 86803; 87040; 87070; 87077; 87081; 87086; 87088; 87186; 87205; 87389; 87507; 87633; 93005; 93306; 93931; 94002; 94640; 99285; C1751; G0328; J0171; J0456; J1335; J1580; J1940; J2270; J2405; J2704; J3010; J3475; J7030; J7042; J7050; J7060; J7120; J7613; J7614; J7620